=== PATIENT | female | born 1950 | race Caucasian/White ===

== ENCOUNTER 2018-11-14 05:45 | Inpatient (IN) | payer MEDICARE ==
[2018-11-14] MEDS ORDERED: KETOROLAC 30 MG/ML 1 ML VIAL IVP STA (06:37)
[2018-11-14] MEDS ORDERED: SODIUM CHLORIDE 0.9% 500 ML 500 ML IV STA (06:38)
--- NOTE | 2018-11-14 06:44 | ED ---
General Adult HPI - General Source: patient, RN notes reviewed Mode of arrival: ambulatory Limitations: no limitations <Francisco Jackman - Last Filed: 11/14/18 08:35> <Man Kaur - Last Filed: 11/14/18 08:50> - General Chief complaint: Extremity Injury, Lower Stated complaint: Leg pain,diabetic Time Seen by Provider: 11/14/18 06:08 - History of Present Illness Initial comments: 68-year-old female with a past medical history of diabetes, chronic neuropathy presents to the emergency department for left foot pain and swelling. Son states that patient was able to walk in grocery shop yesterday. However patient states that around noon yesterday she started to develop this pain and swelling in her left foot and ankle. States that it seems to be worsening today. States she has had similar type of occurrence before and it was infection. Denies any injury that she is aware of. Patient has no other complaints at this time including shortness of breath, chest pain, abdominal pain, nausea or vomiting, headache, or visual changes. (Francisco Jackman) - Related Data Home Medications Medication Instructions Recorded Confirmed Aspirin EC [Ecotrin Low Dose] 81 mg PO DAILY 11/14/18 11/14/18 Atorvastatin [Lipitor] 40 mg PO DAILY 11/14/18 11/14/18 Clopidogrel Bisulfate [Plavix] 75 mg PO DAILY 11/14/18 11/14/18 Insulin Glargine [Lantus] 14 unit SQ BID 11/14/18 11/14/18 Lisinopril [Zestril] 10 mg PO DAILY 11/14/18 11/14/18 Metoprolol Succinate (ER) [Toprol 50 mg PO DAILY 11/14/18 11/14/18 Xl] metFORMIN HCL [Glucophage] 500 mg PO BID 11/14/18 11/14/18 Allergies Allergy/AdvReac Type Severity Reaction Status Date / Time No Known Allergies Allergy Verified 11/14/18 08:05 Review of Systems ROS Other: All systems not noted in ROS Statement are negative. <Francisco Jackman - Last Filed: 11/14/18 08:35> ROS Other: All systems not noted in ROS Statement are negative. <Man Kaur - Last Filed: 11/14/18 08:50> ROS Statement: Those systems with pertinent positive or pertinent negative responses have been documented in the HPI. Past Medical History Past Medical History: Diabetes Mellitus History of Any Multi-Drug Resistant Organisms: None Reported Past Surgical History: Appendectomy, Section, Cholecystectomy, Hysterectomy Past Psychological History: No Psychological Hx Reported Smoking Status: Never smoker Past Alcohol Use History: None Reported Past Drug Use History: None Reported <Francisco Jackman - Last Filed: 11/14/18 08:35> General Exam Limitations: no limitations General appearance: alert, in no apparent distress Head exam: Present: atraumatic, normocephalic, normal inspection Eye exam: Present: normal appearance, PERRL, EOMI. Absent: scleral icterus, conjunctival injection, periorbital swelling ENT exam: Present: normal exam, mucous membranes moist Neck exam: Present: normal inspection, full ROM. Absent: tenderness, meningismus, lymphadenopathy Respiratory exam: Present: normal lung sounds bilaterally. Absent: respiratory distress, wheezes, rales, rhonchi, stridor Cardiovascular Exam: Present: regular rate, normal rhythm, normal heart sounds. Absent: systolic murmur, diastolic murmur, rubs, gallop, clicks Extremities exam: Present: tenderness (Tenderness noted along the lateral aspect of the left foot as well as the lateral malleolus.), normal capillary refill (Capillary refill less than 2 seconds, dp pulse 2+), joint swelling (Patient has significant swelling noted in the left lateral malleolus and foot. This is somewhat erythematous along the lateral aspect and does have increased warmth.), calf tenderness (mild calf tenderness noted). Absent: full ROM (Patient has pa in with dorsi and plantar flexion of the left ankle but does have neck and is an intact. Able to move all toes in the left foot.) Neurological exam: Present: alert. Absent: oriented X3 (A&Ox2 to person/place) Psychiatric exam: Present: normal affect, normal mood <Francisco Jackman - Last Filed: 11/14/18 08:35> Course <Man Kaur - Last Filed: 11/14/18 08:50> Vital Signs 11/14/18 11/14/18 05:58 08:43 Temperature 98.4 F Pulse Rate 107 H 106 H Respiratory 20 18 Rate Blood Pressure 153/81 132/67 O2 Sat by Pulse 97 98 Oximetry - Reevaluation(s) Reevaluation #1: 11/14/18 08:49 Patient reexamined and reevaluated by myself, Dr. Kaur. Patient resting comfortably in bed. I do agree with PA findings. This includes diagnostic interpretation and treatment plan. Patient does have left foot and ankle swelling with tenderness. Patient does have erythema dorsal foot. Son states patient has had similar episode 2 or 3 times previously associated with cellulitis. Son also states patient does have some agitation and mild confusion associated with this. Patient and family updated on results and plan. Case was discussed in detail with Dr. Medina, who will admit covering for Dr. Kai jackson. (Man Kaur) Medical Decision Making - Lab Data Result diagrams: 11/14/18 07:00 11/14/18 07:00 <Francisco Jackman - Last Filed: 11/14/18 08:35> - Lab Data Result diagrams: 11/14/18 07:00 11/14/18 07:00 <Man Kaur - Last Filed: 11/14/18 08:50> - Medical Decision Making 68-year-old female presents to the emergency department for a chief complaint of left lower extremity swelling and pain. This started yesterday. Patient states she was able to grocery shop and walk on it yesterday but now it is very painful which started around noon. States this is exactly consistent with a previous cellulitis. Patient states she is diabetic and does not notice when she has scratches or injuries to the left foot. Denies fevers or chills. On exam patient does have significant edema noted of the lateral aspect of the left foot and ankle. There is increased warmth to this area with minimal erythema. There is abrasion noted over the lateral malleolus. Neurovascular status is intact. Ultrasound was initially ordered for rule out DVT which showed no sonographic evidence. X-ray of the left foot and ankle shows marked soft tissue swelling throughout the lateral ankle without bony abnormality. CBC does show a white count of 14.5 with a left shift. CMP unremarkable however patient does have a glucose of 276, history of diabetes. Son is concerned because states when this infection since to get that she states K confused. States she is acting her normal self. Patient is A and O [address] and [address] Given infection and confusion patient will be admitted for IV antibiotics. Dr. Kaur discussed this case with Dr. Medina who accepts. (Francisco Jackman) - Lab Data Lab Results 11/14/18 11/14/18 11/14/18 Range/Units 07:00 07:00 07:00 WBC 14.5 H (3.8-10.6) k/uL RBC 4.41 (3.80-5.40) m/uL Hgb 13.7 (11.4-16.0) gm/dL Hct 42.0 (34.0-46.0) % MCV 95.1 (80.0-100.0) fL MCH 31.1 (25.0-35.0) pg MCHC 32.7 (31.0-37.0) g/dL RDW 12.8 (11.5-15.5) % Plt Count 206 (150-450) k/uL Neutrophils % 86 % Lymphocytes % 6 % Monocytes % 7 % Eosinophils % 1 % Basophils % 0 % Neutrophils # 12.4 H (1.3-7.7) k/uL Lymphocytes # 0.9 L (1.0-4.8) k/uL Monocytes # 1.0 (0-1.0) k/uL Eosinophils # 0.1 (0-0.7) k/uL Basophils # 0.0 (0-0.2) k/uL Sodium 138 (137-145) mmol/L Potassium 4.7 (3.5-5.1) mmol/L Chloride 102 (98-107) mmol/L Carbon Dioxide 25 (22-30) mmol/L Anion Gap 11 mmol/L BUN 15 (7-17) mg/dL Creatinine 1.03 (0.52-1.04) mg/dL Est GFR (CKD-EPI)AfAm 64 (>60 ml/min/1.73 sqM) Est GFR (CKD-EPI)NonAf 56 (>60 ml/min/1.73 sqM) Glucose 276 H (74-99) mg/dL Plasma Lactic Acid Alex 1.5 (0.7-2.0) mmol/L Calcium 9.0 (8.4-10.2) mg/dL Total Bilirubin 0.7 (0.2-1.3) mg/dL AST 17 (14-36) U/L ALT 24 (9-52) U/L Alkaline Phosphatase 70 (38-126) U/L Total Protein 7.0 (6.3-8.2) g/dL Albumin 4.1 (3.5-5.0) g/dL Disposition Is patient prescribed a controlled substance at d/c from ED?: No Time of Disposition: 08:36 <Francisco Jackman - Last Filed: 11/14/18 08:35> <Man Kaur - Last Filed: 11/14/18 08:50> Clinical Impression: Cellulitis of left lower extremity, Confusion, Leukocytosis Disposition: ADMITTED IP TO THIS HOSP Condition: Fair Referrals: Alan Wilkes MD [Primary Care Provider] - 1-2 days
[2018-11-14 07:26] LABS: Albumin 4.1 g/dL (3.5-5.0); Potassium 4.7 mmol/L (3.5-5.1); Total Bilirubin 0.7 mg/dL (0.2-1.3)
[2018-11-14 07:32] LABS: Basophils % (A) 0 %; Eosinophils # (A) 0.1 k/uL (0-0.7); Eosinophils % (A) 1 %; HGB 13.7 gm/dL (11.4-16.0); Lymphocytes # (A) 0.9 k/uL (1.0-4.8); Lymphocytes % (A) 6 %; MCH 31.1 pg (25.0-35.0); MCHC 32.7 g/dL (31.0-37.0); MCV 95.1 fL (80.0-100.0); Mean Platelet Volume 8.3; Monocytes % (A) 7 %; Neutrophils # (A) 12.4 k/uL (1.3-7.7); Neutrophils % (A) 86 %; Platelet Count 206 k/uL (150-450); RBC 4.41 m/uL (3.80-5.40); RDW 12.8 % (11.5-15.5); WBC 14.5 k/uL (3.8-10.6)
--- NOTE | 2018-11-14 07:36 | XR ---
EXAM: XR Left Foot Complete, 3 or More Views CLINICAL HISTORY: ITS.REASON XR Reason: Pain TECHNIQUE: Frontal, lateral and oblique views of the left foot. COMPARISON: No relevant prior studies available. FINDINGS: Bones/joints: Small spur in the posterior superior margin of the calcaneus. Tiny calcific density in the base of the cubocalcaneal joint. No acute fracture. No dislocation. Soft tissues: Soft tissue swelling about the lateral aspect of the visualized ankle and hindfoot. No radiopaque foreign body. IMPRESSION: 1. No acute bony abnormality. 2. Soft tissue swelling
--- NOTE | 2018-11-14 07:38 | XR ---
EXAM: XR Left Ankle Complete, 3 or More Views CLINICAL HISTORY: ITS.REASON XR Reason: Pain TECHNIQUE: Frontal, lateral and oblique views of the left ankle. COMPARISON: No relevant prior studies available. FINDINGS: Bones/joints: Small spur in the posterior superior margin of the calcaneus. This likely represents heel spur. Subtle lucencies in the lateral margin of the lateral malleolus, nonspecific. No acute fracture. No dislocation. Soft tissues: Marked soft tissue swelling about the lateral ankle. IMPRESSION: 1. No acute bony abnormality. 2. Marked soft tissue swelling about the lateral ankle. 3. As indicated, consider further evaluation with MR to exclude occult injury.
--- NOTE | 2018-11-14 07:46 | US ---
EXAMINATION TYPE: US venous doppler duplex LE LT DATE OF EXAM: 11/14/2018 7:32 AM COMPARISON: NONE CLINICAL HISTORY: Pain. Pt states left leg swelling x many years, recently gotten worse SIDE PERFORMED: Left TECHNIQUE: The lower extremity deep venous system is examined utilizing real time linear array sonog iram with graded compression, doppler sonography and color-flow sonography. VESSELS IMAGED: External Iliac Vein (EIV) Common Femoral Vein Deep Femoral Vein Greater Saphenous Vein * Femoral Vein Popliteal Vein Small Saphenous Vein * Proximal Calf Veins (* superficial vessels) Grayscale, color doppler, spectral doppler imaging performed of the deep veins of the left lower extr emity. There is normal flow, compressibility, vascular waveforms. Left Leg: Negative for DVT IMPRESSION: No sonographic evidence of deep venous thrombosis within the left lower extremity.
[2018-11-14] MEDS ORDERED: NALOXONE 0.4 MG/ML 1 ML VIAL IV PRN (08:41)
[2018-11-14] MEDS ORDERED: ONDANSETRON 4 MG/2 ML VIAL IVP PRN (08:41)
[2018-11-14] MEDS: SODIUM CHLORIDE 0.9% 1,000 ML IV SCH (09:28)
[2018-11-14] MEDS: metFORMIN 500 MG TAB PO SCH ×2 (09:36→20:03)
[2018-11-14] MEDS: LISINOPRIL 10 MG TAB PO SCH (09:36)
[2018-11-14] MEDS: METOPROLOL SUCCINATE (ER) 50 MG TAB.ER.24H PO SCH (09:36)
[2018-11-14] MEDS: CLOPIDOGREL 75 MG TAB PO SCH (09:36)
[2018-11-14] MEDS: ASPIRIN 81 MG PO SCH (09:36)
[2018-11-14 09:37] LABS: Glucose,Whole Blood 255 mg/dL (75-99)
[2018-11-14 10:08] LABS: Appearance,Urine Clear (Clear); Bilirubin,Urine Negative (Negative); Blood,Urine Negative (Negative); Color,Urine Yellow; Glucose,Urine (UA) 4+ (Negative); Ketones,Urine 1+ (Negative); Leukocyte Esterase,Urine Moderate (Negative); Mucus,Urine Rare /hpf; Nitrite,Urine Negative (Negative); PH, Urine 5.5 (5.0-8.0); Protein,Urine 1+ (Negative); RBC,Urine 4 /hpf (0-5); Specific Gravity,Urine 1.026 (1.001-1.035); Squamous Epithelial Cell,Urine 1 /hpf (0-4); Urobilinogen,Urine <2.0 mg/dL (<2.0); WBC,Urine 31 /hpf (0-5)
[2018-11-14] MEDS: HYDROcodone/APAP 5-325MG 1 EACH TAB PO PRN ×2 (11:55→20:02)
[2018-11-14] MEDS: ATORVASTATIN 40 MG TAB PO SCH (11:55)
[2018-11-14 12:00] LABS: Glucose,Whole Blood 264 mg/dL (75-99)
[2018-11-14] MEDS: INSULIN DETEMIR (LEVEMIR) 100 UNIT/ML SYR SQ SCH ×2 (12:19→20:03)
[2018-11-14] MEDS: INSULIN ASPART (NovoLOG) 100 UNIT/ML VIAL SQ SCH ×3 (12:19→21:36)
[2018-11-14 17:18] LABS: Glucose,Whole Blood 237 mg/dL (75-99)
[2018-11-14 21:27] LABS: Glucose,Whole Blood 475 mg/dL (75-99)
[2018-11-14 21:27] LABS: Glucose,Whole Blood 253 mg/dL (75-99)
[2018-11-14] MEDS ORDERED: NAPROXEN 250 MG TAB PO STA (23:06)
--- NOTE | 2018-11-14 23:13 | P.HPIM ---
History of Present Illness H&P Date: 11/14/18 Chief Complaint: Left ankle pain History of presenting complaint: This is a pleasant 68-year-old patient of Dr. Maddox. Chronic stable medical conditions include diabetes, hypertension, hyperlipidemia,. Patient complains of pain in his left ankle for quite some time. Seems to progressively gotten worse. This pain and swelling. Denies any fever and chills. Denies any in jury. Patient the best of historians. Admitted for the same. No fever no chills. Pain is localized to the left ankle and worse with activity. Finds it difficult to weight-bear. Better with rest. Review of systems: GEN.: Tired EYES: None HEENT: None NECK: None RESPIRATORY: None CARDIOVASCULAR: None GASTROINTESTINAL: None GENITOURINARY: None MUSCULOSKELETAL: As above] LYMPHATICS: None HEMATOLOGICAL: None PSYCHIATRY: Forgetful NEUROLOGICAL: Decreased sensation peripherally Past medical history: Diabetes, hypertension, hyperlipidemia Social history: Does not smoke or drink. . Family history: Patient doesn't remember Physical examination: VITAL SIGNS: 98.4, 107, 20, 153/81, 97% room air GENERAL: BMI 36.6, laying in bed tired. EYES: Pupils equal. Conjunctiva normal. HEENT: External appearance of nose and ears normal, oral cavity grossly normal. NECK: JVD not raised; masses not palpable. HEART: First and second heart sounds are normal; no edema. LUNGS: Respiratory rate normal; clear to auscultation. ABDOMEN: Soft, nontender, liver spleen not palpable, no masses palpable. PSYCH: Patient slow to answer questionsl. NEUROLOGICAL: Cranial nerves grossly intact; no facial asymmetry, power and sensation grossly intact. LYMPHATICS: No lymph nodes palpable in the axilla and neck MUSCULOSKELETAL: There is swelling and slight disfigurement of left ankle. Po sterior the pain swelling is of the foot. Some local tenderness. Able to push and deeply. Very minimal redness INVESTIGATIONS, reviewed in the clinical context: . White count 14.5 hemoglobin 13.7 potassium 4.7 1:15 creatinine 1.03 Left foot and ankle x-ray-shows soft tissue swelling around the foot and the ankle Assessment: -Acute on chronic pain swelling of the left foot with peripheral neuropathy. Patient could be developing early features of Charcot foot. Appears to be acute inflammation 2. Highly to highly doubt this to be infection. There is no breakdown of skin. -Diabetes mellitus type 2 -Obesity BMI 36.6 -Essential hypertension -Hyperlipidemia Plan: We'll start the patient on naproxen to 50 mg 3 times a day. We will use topical Voltaren gel with Kerlix and Francois wrap. We'll send off a uric acid though the joint is not behaving like out. We'll get orthopedic consultation with the same. Care was discussed with the patient.. Past Medical History Past Medical History: Diabetes Mellitus History of Any Multi-Drug Resistant Organisms: None Reported Past Surgical History: Appendectomy, Section, Cholecystectomy, Hysterectomy Past Psychological History: No Psychological Hx Reported Smoking Status: Never smoker Past Alcohol Use History: None Reported Past Drug Use History: None Reported Medications and Allergies Home Medications Medication Instructions Recorded Confirmed Type Aspirin EC [Ecotrin Low Dose] 81 mg PO DAILY 11/14/18 11/14/18 History Atorvastatin [Lipitor] 40 mg PO DAILY 11/14/18 11/14/18 History Clopidogrel Bisulfate [Plavix] 75 mg PO DAILY 11/14/18 11/14/18 History Insulin Glargine [Lantus] 14 unit SQ BID 11/14/18 11/14/18 History Lisinopril [Zestril] 10 mg PO DAILY 11/14/18 11/14/18 History Metoprolol Succinate (ER) [Toprol 50 mg PO DAILY 11/14/18 11/14/18 History Xl] metFORMIN HCL [Glucophage] 500 mg PO BID 11/14/18 11/14/18 History Allergies Allergy/AdvReac Type Severity Reaction Status Date / Time No Known Allergies Allergy Verified 11/14/18 08:05 Physical Exam Vitals: Vital Signs Temp Pulse Pulse Resp BP BP Pulse Ox 11/14/18 18:34 16 11/14/18 13:45 97.8 F 91 16 121/72 97 11/14/18 11:25 98.3 F 65 16 153/84 99 11/14/18 09:32 99.2 F 104 H 18 120/98 97 11/14/18 08:43 106 H 18 132/67 98 11/14/18 05:58 98.4 F 107 H 20 153/81 97 Intake and Output 11/14/18 11/14/18 11/14/18 06:59 14:59 22:59 Intake Total 1330 540 Balance 1330 540 Intake: Oral 1330 540 Other: Voiding Method Bedside Commode # Voids 2 2 Weight 90.718 kg Results CBC & Chem 7: 11/14/18 07:00 11/14/18 07:00 Labs: Abnormal Lab Results - Last 24 Hours (Table) 11/14/18 11/14/18 11/14/18 Range/Units 07:00 07:00 09:25 WBC 14.5 H (3.8-10.6) k/uL Neutrophils # 12.4 H (1.3-7.7) k/uL Lymphocytes # 0.9 L (1.0-4.8) k/uL Glucose 276 H (74-99) mg/dL POC Glucose (mg/dL) (75-99) mg/dL Urine Protein 1+ H (Negative) Urine Glucose (UA) 4+ H (Negative) Urine Ketones 1+ H (Negative) Ur Leukocyte Esterase Moderate H (Negative) Urine WBC 31 H (0-5) /hpf Urine Mucus Rare H (None) /hpf 11/14/18 11/14/18 11/14/18 Range/Units 09:35 11:45 17:17 WBC (3.8-10.6) k/uL Neutrophils # (1.3-7.7) k/uL Lymphocytes # (1.0-4.8) k/uL Glucose (74-99) mg/dL POC Glucose (mg/dL) 255 H 264 H 237 H (75-99) mg/dL Urine Protein (Negative) Urine Glucose (UA) (Negative) Urine Ketones (Negative) Ur Leukocyte Esterase (Negative) Urine WBC (0-5) /hpf Urine Mucus (None) /hpf 11/14/18 11/14/18 Range/Units 21:21 21:24 WBC (3.8-10.6) k/uL Neutrophils # (1.3-7.7) k/uL Lymphocytes # (1.0-4.8) k/uL Glucose (74-99) mg/dL POC Glucose (mg/dL) 475 H 253 H (75-99) mg/dL Urine Protein (Negative) Urine Glucose (UA) (Negative) Urine Ketones (Negative) Ur Leukocyte Esterase (Negative) Urine WBC (0-5) /hpf Urine Mucus (None) /hpf Thrombosis Risk Factor Assmnt - Choose All That Apply Each Risk Factor Represents 2 Points: Age 61-74 years Thrombosis Risk Factor Assessment Total Risk Factor Score: 2 Thrombosis Risk Factor Assessment Level: Low Risk
[2018-11-15] MEDS: ENOXAPARIN 40 MG/0.4 ML SYRINGE SQ SCH (01:05)
[2018-11-15] MEDS: DICLOFENAC SODIUM GEL 100 GM TUBE TOPICAL SCH ×5 (01:05→20:54)
[2018-11-15] MEDS: SODIUM CHLORIDE 0.9% 1,000 ML IV SCH ×2 (01:06→08:39)
[2018-11-15 04:55] LABS: Glucose,Whole Blood 178 mg/dL (75-99)
[2018-11-15 07:17] LABS: Glucose,Whole Blood 148 mg/dL (75-99)
[2018-11-15] MEDS: METOPROLOL SUCCINATE (ER) 50 MG TAB.ER.24H PO SCH (07:37)
[2018-11-15] MEDS: ASPIRIN 81 MG PO SCH (07:37)
[2018-11-15] MEDS: ATORVASTATIN 40 MG TAB PO SCH (07:37)
[2018-11-15] MEDS: metFORMIN 500 MG TAB PO SCH ×2 (07:37→20:53)
[2018-11-15] MEDS: LISINOPRIL 10 MG TAB PO SCH ×2 (07:37→07:50)
[2018-11-15] MEDS: INSULIN ASPART (NovoLOG) 100 UNIT/ML VIAL SQ SCH ×4 (07:38→20:53)
[2018-11-15] MEDS: NAPROXEN 250 MG TAB PO SCH ×3 (07:38→20:53)
[2018-11-15] MEDS: INSULIN DETEMIR (LEVEMIR) 100 UNIT/ML SYR SQ SCH ×2 (07:38→20:53)
[2018-11-15] MEDS: CLOPIDOGREL 75 MG TAB PO SCH (07:38)
[2018-11-15] MEDS ORDERED: LIDOCAINE 2% INJ 20 MG/ML (20 ML MDV) SQ ONE (10:25)
--- NOTE | 2018-11-15 11:05 | P.CNOR ---
History of Present Illness - [facility] Consult date: 11/15/18 Consult reason: joint pain (Left ankle) History of present illness: This is a 68-year-old female with history of diabetes and chronic left ankle problems. She states that approximately 8 years ago she had surgery with a public relations officer and developed a chronic wound to the lateral aspect of the left ankle. She states that she had an opening in her ankle for a couple of years. She does not recall whether there was infection or not. She states that her ankle occasionally flares up. Recently the ankle flared up much worse and have her have the past. She states that the pain was worse than she has ever had and developed redness which went up her leg and down to the foot. She was admitted to internal medicine we are consulted for orthopedic evaluation. Past Medical History Past Medical History: Diabetes Mellitus History of Any Multi-Drug Resistant Organisms: None Reported Past Surgical History: Appendectomy, Section, Cholecystectomy, Hysterectomy Past Psychological History: No Psychological Hx Reported Smoking Status: Never smoker Past Alcohol Use History: None Reported Past Drug Use History: None Reported Medications and Allergies Home Medications Medication Instructions Recorded Confirmed Type Aspirin EC [Ecotrin Low Dose] 81 mg PO DAILY 11/14/18 11/14/18 History Atorvastatin [Lipitor] 40 mg PO DAILY 11/14/18 11/14/18 History Clopidogrel Bisulfate [Plavix] 75 mg PO DAILY 11/14/18 11/14/18 History Insulin Glargine [Lantus] 14 unit SQ BID 11/14/18 11/14/18 History Lisinopril [Zestril] 10 mg PO DAILY 11/14/18 11/14/18 History Metoprolol Succinate (ER) [Toprol 50 mg PO DAILY 11/14/18 11/14/18 History Xl] metFORMIN HCL [Glucophage] 500 mg PO BID 11/14/18 11/14/18 History Allergies Allergy/AdvReac Type Severity Reaction Status Date / Time No Known Allergies Allergy Verified 11/14/18 08:05 Physical Examination This is a pleasant 68-year-old female in no acute distress. She is alert and oriented 3. Exam of the left lower extremity reveals erythema from the toes up to the mid lower leg. There is significant swelling to the lateral aspect of her ankle. She is able to move the foot and ankle with some pain. There is pain with palpation about the lateral ankle. Pedal pulse is +1/4. Neurovascular status to the lower extremity is intact. Results X-rays reveal no bony abnormality or fracture to the left ankle. - Labs Labs: Abnormal Lab Results - Last 24 Hours (Table) 11/14/18 11/14/18 11/14/18 Range/Units 11:45 17:17 21:21 POC Glucose (mg/dL) 264 H 237 H 475 H (75-99) mg/dL 11/14/18 11/15/18 11/15/18 Range/Units 21:24 04:41 07:01 POC Glucose (mg/dL) 253 H 178 H 148 H (75-99) mg/dL H & H 11/14/18 Range/Units 07:00 Hgb 13.7 (11.4-16.0) gm/dL Hct 42.0 (34.0-46.0) % Result Diagrams: 11/14/18 07:00 11/14/18 07:00 Assessment and Plan (1) Septic arthritis of left ankle Current Visit: Yes Status: Acute Code(s): M00.9 - PYOGENIC ARTHRITIS, UNSPECIFIED SNOMED Code(s): 5554255973076226 (2) Cellulitis of left lower extremity Current Visit: Yes Status: Acute Code(s): L03.116 - CELLULITIS OF LEFT LOWER LIMB SNOMED Code(s): 210238358 Plan: The clinical and x-ray findings are discussed the patient. Aspiration is performed to the left ankle today using sterile technique. Proximally 8 mL of purulent material is obtained from the ankle. The fluid is sent for culture and sensitivity and cell count crystal identification. I have reviewed the case with Dr. Arnold. The patient is scheduled for irrigation and debridement in the operating room today. The procedures discussed in detail with the patient. After discussion and consideration patient elects proceed with I&D left ankle.
[2018-11-15 12:13] LABS: Glucose,Whole Blood 171 mg/dL (75-99)
[2018-11-15] MEDS ORDERED: CLINDAMYCIN 600 MG in DEXTROSE 5% IN WATER 50 ML IVPB SCH ×2 (12:30)
[2018-11-15] MEDS ORDERED: PIPERACILLIN-TAZOBACTAM 3.375 GM in SODIUM CHLORIDE 0.9% 100 ML IVPB SCH (13:00)
[2018-11-15 13:07] LABS: Appearance,BF Cloudy; Nucleated Cells, Body Fluid 93000 /uL; RBC, Body Fluid 5400 /uL
[2018-11-15 13:11] LABS: Mononuclear WBC,Body Fluid 11 %; Polynuclear WBC,Body Fluid 89 %; Total Cells Counted,Body Fluid 100
[2018-11-15] MEDS ORDERED: PHENYLEPHRINE-0.9% NACL SYG 1 MG/10 ML SYRINGE ONE (14:01)
[2018-11-15] MEDS ORDERED: LIDOCAINE 1% INJ 10MG/ML (20 ML MDV) ONE (14:01)
[2018-11-15] MEDS ORDERED: fentaNYL (PF) 50 MCG/ML 2 ML AMP ONE (14:01)
[2018-11-15] MEDS ORDERED: MIDAZOLAM 2 MG/2 ML VIAL ONE (14:01)
[2018-11-15] MEDS ORDERED: ePHEDrine SULFATE/0.9% NACL/PF 50 MG/5 ML SYRINGE IV ONE (14:01)
[2018-11-15] MEDS ORDERED: DEXAMETHASONE SOD PHOS (MDV) 100 MG/10 ML VIAL ONE (14:01)
[2018-11-15] MEDS ORDERED: ONDANSETRON 4 MG/2 ML VIAL ONE (14:01)
[2018-11-15] MEDS ORDERED: PROPOFOL 10 MG/ML 20 ML VIAL IV ONE (14:01)
[2018-11-15] MEDS ORDERED: SUCCINYLCHOLINE CHLORIDE 100 MG/5 ML SYR IV ONE (14:01)
[2018-11-15] MEDS ORDERED: IV FLUID CONTINUATION 1,000 ML IV ONE (14:05)
--- NOTE | 2018-11-15 15:18 | P.OP ---
Date of Procedure: 11/15/18 Procedure(s) Performed: PREOPERATIVE DIAGNOSES: 1. Left ankle septic arthritis 2. 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 Left ankle subcutaneous abscess without involvement of the ankle joint 2. 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 Left ankle deep abscess incision and drainage 2. Closure of wound over a Gilmore drain ANESTHESIA: Gen. BOOK JACKET COVER MACHINE OPERATOR: None COMPLICATIONS: None ESTIMATED BLOOD LOSS: Less than 50 mL. DISPOSITION: To post-anesthesia care unit INDICATIONS: Mrs. Farah is a 68-year-old insulin-dependent diabetic with a history of infection involving the left ankle. She has a history of multiple left ankle procedures dating back approximately 10 years ago from an initial excision of "cyst" by a law firm administrator. Suspicion today is of septic arthritis involving the ankle joint. She presents to the operating room for incision and drainage. Consent has been obtained after discussion of the risks of incision and drainage of this abscess as being inclusive of, but not limited to: Bleeding, further infection, scarring, discomfort, blood vessel and/or nerve damage, compartment syndrome, failure to relieve symptoms, persistence or recurrence and/or worsening of symptoms or problems, need for further surgery, blood clot, pulmonary embolism, , anesthesia risks, and other risks. PROCEDURE: After appropriate consent was obtained, the patient was taken to the operating room placed in the supine position. Anesthesia was initiated, and after confirmation of adequate anesthesia, the patient was carefully positioned. Care was taken to make sure that all pressure points were adequately padded. Prepping and draping were completed in the usual aseptic fashion using ChloraPrep. Timeout was called, confirming patient identity, side, and procedure. On the floor, the patient had already been receiving Zosyn and Cleocin. Incision approximately 4 inches in size was created along the abscess, which was located on the lateral aspect of the ankle. Incision was carried down just through skin and into subcu tissues where was noted that there was gross pus. Brisk bleeding was noted from the subcutaneous tissues which was treated with Bovie cauterization, presumably from collateral circulation due to this patient's history of diabetes and microvascular disease. The gross pus was removed by extending the incision and gently spreading down to the abscess cavity. Frankly necrotic/infected tissue was removed both sharply with a knife and bluntly using a rongeur. The abscess cavity was probed with manual palpation until all areas of the abscess cavity were interrogated. The abscess seemed to track just posterior to the peroneal tendons. Cultures were taken. There did not appear to be any extension of the abscess cavity into the joint. To double check this, a 14-gauge Angiocath was placed percutaneously on the medial aspect of the joint adjacent to the anterior tibialis tendon and interrogation of the joint with 60 mL of saline was performed. There was no evidence of pus within the ankle joint itself and good pressure was noted with approximately a 10 mL volume of the ankle. The ankle was also pressurized to note any fluid extravasation into the lateral abscess wound and there was none seen. Lateral ankle soft tissue tension visibly and palpably improved after drainage of the abscess. Pulsatile lavage was used, delivering 3 L of saline within the abscess cavity. During this time, small amount of Hibiclens solution was also applied to the wound surface, allowed to soak into the tissues for 1 minute, and then rinsed off using the pulsatile lavage. Subsequently, hemostasis was obtained using electrocautery but there was no significant bleeding present. Wound waclosed superficially over a perforated Ave drain and sterile dressing was then applied. Patient tolerated the procedure well and taken to recovery room in stable condition. Sponge counts were correct.
[2018-11-15 15:19] LABS: Glucose,Whole Blood 172 mg/dL (75-99)
--- NOTE | 2018-11-15 16:15 | P.PN ---
Progress Note - Text Progress Note Date: 11/15/18 Chief Complaint: Left ankle pain Interval history: This is a pleasant 68-year-old patient of Dr. Maddox. Chronic stable medical conditions include diabetes, hypertension, hyperlipidemia,. Patient complains of pain in his left ankle for quite some time. Seems to progressively gotten worse. This pain and swelling. Denies any fever and chills. Denies any injury. Patient the best of historians. Admitted for the same. No fever no chills. Pain is localized to the left ankle and worse with activity. Finds it difficult to weight-bear. Better with rest. Today-orthopedics did drain the left ankle joint. Did obtain pus. IV antibiotics were started. Patient later today was to be taken down to the OR. Review of systems: Was done for constitutional, cardiovascular, GI, pulmonary. relevant finding as above Active Medications Hydrocodone Bitart/Acetaminophen ([place] 5-325) 1 each PO Q4HR PRN PRN Reason: Moderate Pain Last Admin: 11/14/18 20:02 Dose: 1 each Documented by: Aspirin (Aspirin) 81 mg PO DAILY [facility] Last Admin: 11/15/18 07:37 Dose: 81 mg Documented by: Atorvastatin Calcium (Lipitor) 40 mg PO DAILY [facility] Last Admin: 11/15/18 07:37 Dose: 40 mg Documented by: Clopidogrel Bisulfate (Plavix) 75 mg PO DAILY [facility] Last Admin: 11/15/18 07:38 Dose: 75 mg Documented by: Diclofenac Sodium (Voltaren Gel) 4 gm TOPICAL QID [facility] Last Admin: 11/15/18 13:15 Dose: Not Given Documented by: Enoxaparin Sodium (Lovenox) 40 mg SQ Q24H [facility] Last Admin: 11/15/18 01:05 Dose: 40 mg Documented by: Sodium Chloride (Saline 0.9%) 1,000 mls @ 75 mls/hr IV .[id number] [facility] Last Admin: 11/15/18 08:39 Dose: 75 mls/hr Documented by: Piperacillin Sod/Tazobactam (Sod 3.375 gm/ Sodium Chloride) 100 mls @ 25 mls/hr IVPB Q8H [facility] Last Admin: 11/15/18 13:30 Dose: 25 mls/hr Documented by: Clindamycin Phosphate 600 mg/ (Dextrose/Water) 54 mls @ 50 mls/hr IVPB Q6HR [facility] Last Admin: 11/15/18 13:12 Dose: 50 mls/hr Documented by: Insulin Aspart (Novolog) 0 unit SQ ACHS [facility]; Protocol Last Admin: 11/15/18 12:06 Dose: Not Given Documented by: Insulin Detemir (Levemir) 14 unit SQ BID@0700,2100 [facility] Last Admin: 11/15/18 07:38 Dose: 14 unit Documented by: Lisinopril (Zestril) 10 mg PO DAILY [facility] Last Admin: 11/15/18 07:50 Dose: 10 mg Documented by: Metformin HCl (Glucophage) 500 mg PO BID [facility] Last Admin: 11/15/18 07:37 Dose: 500 mg Documented by: Metoprolol Succinate (Toprol Xl) 50 mg PO DAILY [facility] Last Admin: 11/15/18 07:37 Dose: 50 mg Documented by: Naloxone HCl (Narcan) 0.2 mg IV Q2M PRN PRN Reason: Opioid Reversal Naproxen (Naprosyn) 250 mg PO TID [facility] Last Admin: 11/15/18 07:38 Dose: 250 mg Documented by: Ondansetron HCl (Zofran) 4 mg IVP Q8HR PRN PRN Reason: Nausea And Vomiting Physical examination: VITAL SIGNS: 98.1, 86, 20, 115/72, 92% room air GENERAL: Sitting up in the bed, not in distress EYES: Pupils equal. Conjunctiva normal. HEENT: External appearance of nose and ears normal, oral cavity grossly normal. NECK: JVD not raised; masses not palpable. HEART: First and second heart sounds are normal; no edema. LUNGS: Respiratory rate normal; clear to auscultation. ABDOMEN: Soft, nontender, liver spleen not palpable, no masses palpable. PSYCH: Patient slow to answer questionsl. NEUROLOGICAL: Cranial nerves grossly intact; no facial asymmetry, power and sensation grossly intact. LYMPHATICS: No lymph nodes palpable in the axilla and neck MUSCULOSKELETAL: There is swelling and slight disfigurement of left ankle. Currently in Francois wrap INVESTIGATIONS, reviewed in the clinical context: Joint fluid: RBC 5400, polynuclear WBC 89, nucleated cells 93,000 Admission testing: . White count 14.5 hemoglobin 13.7 potassium 4.7 1:15 creatinine 1.03 Left foot and ankle x-ray-shows soft tissue swelling around the foot and the ankle Assessment: -Left ankle septic arthritis. Arthrocentesis did reveal pus. Patient will be later taken down to the OR.. -Diabetes mellitus type 2 -Obesity BMI 36.6 -Essential hypertension -Hyperlipidemia Plan: Patient earlier started on Zosyn and clindamycin. Other medications to continue. Awaiting to go down to the OR.
[2018-11-15] MEDS ORDERED: VANCOMYCIN IV PER PHARMACY 1 EACH MISC MISCELLANE PRN (16:47)
[2018-11-15 17:23] LABS: Glucose,Whole Blood 209 mg/dL (75-99)
[2018-11-15] MEDS ORDERED: VANCOMYCIN 1,500 MG in SODIUM CHLORIDE 0.9% 250 ML IVPB ONE (18:00)
[2018-11-15 20:51] LABS: Glucose,Whole Blood 276 mg/dL (75-99)
[2018-11-15] MEDS: CEFEPIME 2 GM in SODIUM CHLORIDE 0.9% 100 ML IVPB SCH (20:53)
--- NOTE | 2018-11-15 23:00 | P.CONS ---
History of Present Illness - Reason for Consult Consult date: 11/15/18 Left ankle wound infection Requesting physician: Mark Arnold - Chief Complaint Left ankle pain and swelling x few days - History of Present Illness Patient is a 68 year female well known to my service in this patient who did have a off and on nonhealing wound to her right ankle area for the patient has been evaluated at the wound care center patient is on presenting to [facility] ER with a chief complaints of significant pain swelling redness to the left ankle area that apparently blew up within 2-3 days without any history of any trauma patient be complaining of throbbing pain to the area with intensity of almost 10 out of 10 and no radiation at that time went she presented to hospital with associated swelling and redness was extending up her leg the patient did have some chills but denies high-grade fever with these symptoms the patient was evaluated by the ER physician patient did have x-rays of the ankle area which shows soft tissue swelling but no bony changes she was noticed to have elevated white count of 14.5 thousand patient was taken to the OR and is status post drainage of an abscess which was thought to be subcutaneous and understandable to the ankle area wound culture has been obtained patient is currently being treated with clindamycin and Zosyn and infectious disease was consulted for further recommendation regarding antibiotic therapy Review of Systems CONSTITUTIONAL: Positive for weakness. Chills but no high-grade fever Fever EYES: No complaint. ENT:No complaint. RESPIRATORY: No complaint. CARDIOVASCULAR: No complaint. GENITOURINARY: No complaint. GASTROINTESTINAL: No complaint. MUSCULOSKELETAL: As per history of present illness INTEGUMENTARY: As per history of present illness PSYCHOLOGICAL: No complaint. ENDOCRINE: No complaint. NEUROLOGIC: No complaint. Past Medical History Past Medical History: Diabetes Mellitus History of Any Multi-Drug Resistant Organisms: None Reported Past Surgical History: Appendectomy, Section, Cholecystectomy, Hysterectomy Past Psychological History: No Psychological Hx Reported Smoking Status: Never smoker Past Alcohol Use History: None Reported Past Drug Use History: None Reported Medications and Allergies Home Medications Medication Instructions Recorded Confirmed Type Aspirin EC [Ecotrin Low Dose] 81 mg PO DAILY 11/14/18 11/14/18 History Atorvastatin [Lipitor] 40 mg PO DAILY 11/14/18 11/14/18 History Clopidogrel Bisulfate [Plavix] 75 mg PO DAILY 11/14/18 11/14/18 History Insulin Glargine [Lantus] 14 unit SQ BID 11/14/18 11/14/18 History Lisinopril [Zestril] 10 mg PO DAILY 11/14/18 11/14/18 History Metoprolol Succinate (ER) [Toprol 50 mg PO DAILY 11/14/18 11/14/18 History Xl] metFORMIN HCL [Glucophage] 500 mg PO BID 11/14/18 11/14/18 History Allergies Allergy/AdvReac Type Severity Reaction Status Date / Time No Known Allergies Allergy Verified 11/14/18 08:05 Physical Exam Vitals: Vital Signs Temp Pulse Pulse Resp BP Pulse Ox 11/15/18 16:05 98.3 F 94 16 100/56 92 L 11/15/18 15:25 94 18 95/55 95 11/15/18 15:10 98 16 101/57 99 11/15/18 14:57 98.2 F 101 H 18 90/51 99 11/15/18 07:49 88 143/77 11/15/18 04:45 98.1 F 86 20 115/72 92 L 11/14/18 22:25 97.4 F L 76 20 108/70 97 11/14/18 18:34 16 Intake and Output 11/15/18 11/15/18 11/15/18 06:59 14:59 22:59 Intake Total 100 300 100 Output Total 50 Balance 100 250 100 Intake: IV 300 100 Oral 100 Output: Estimated Blood Loss 50 Other: # Voids 1 3 # Bowel Movements 2 GENERAL DESCRIPTION: An elderly female lying in bed, no distress. No tachypnea or accessory muscle of respiration use. HEENT: Shows Pallor , no scleral icterus. Oral mucous membrane is dry. No pharyngeal erythema or thrush NECK: Trachea central, no thyromegaly. LUNGS: Unlabored breathing. Clear to auscultation anteriorly. No wheeze or crackle. HEART: S1, S2, regular rate and rhythm. No loud murmur ABDOMEN: Soft, no tenderness , guarding or rigidity, no organomegaly EXTREMITIES: Right ankle is currently dressed up postop with no drainage on the dressing SKIN: No rash, no masses palpable. NEUROLOGICAL: The patient is awake, alert, oriented x3, mood and affect normal. Results CBC & Chem 7: 11/14/18 07:00 11/14/18 07:00 Labs: Abnormal Lab Results - Last 24 Hours (Table) 11/14/18 11/14/18 11/14/18 Range/Units 17:17 21:21 21:24 POC Glucose (mg/dL) 237 H 475 H 253 H (75-99) mg/dL 11/15/18 11/15/18 11/15/18 Range/Units 04:41 07:01 12:05 POC Glucose (mg/dL) 178 H 148 H 171 H (75-99) mg/dL 11/15/18 Range/Units 15:16 POC Glucose (mg/dL) 172 H (75-99) mg/dL Assessment and Plan Assessment: 1-patient with history of chronic nonhealing wound to the left ankle area and this patient admitted with acute exacerbation with evidence of an abscess status post drainage, will need to call for both gram-positive and no significant gram-negative pathogen to be the likely source of this infection (1) Cellulitis of left lower extremity Current Visit: Yes Status: Acute Code(s): L03.116 - CELLULITIS OF LEFT LOWER LIMB SNOMED Code(s): 172828315 Plan: 1-discontinue the clindamycin and Zosyn 2--vancomycin pharmacy to dose target trough of 15 while watching her kidney function and Vanco trough closely 3- cefepime 2 g every 12 hours we will follow on clinical condition and culture to further adjust medication if needed Thank you for this consultation will follow this patient along with you
[2018-11-16] MEDS: ENOXAPARIN 40 MG/0.4 ML SYRINGE SQ SCH ×2 (00:23→22:56)
[2018-11-16] MEDS: HYDROcodone/APAP 5-325MG 1 EACH TAB PO PRN (01:17)
[2018-11-16] MEDS ORDERED: IPRATROPIUM-ALBUTEROL 3 ML NEB INHALATION PRN ×2 (01:25→05:31)
[2018-11-16] MEDS ORDERED: methylPREDNISolone SOD SUCCI 40 MG/ML 1 ML VIAL IV SCH (01:30)
--- NOTE | 2018-11-16 01:54 | XR ---
EXAM: XR Chest, 1 View CLINICAL HISTORY: ITS.REASON XR Reason: SOB TECHNIQUE: Frontal view of the chest. COMPARISON: No relevant prior studies available. IMPRESSION: Cardiomegaly. Trace left pleural effusion. Mild vascular congestion. No consolidation.
[2018-11-16 02:21] LABS: Glucose,Whole Blood 456 mg/dL (75-99)
[2018-11-16 02:21] LABS: Glucose,Whole Blood 467 mg/dL (75-99)
[2018-11-16] MEDS: PROPOFOL 1,000 MG in EMPTY BAG 1 BAG IV SCH ×4 (02:30→20:06)
[2018-11-16 03:05] LABS: ABG Base Excess -9.7 mmol/L; ABG HCO3 20 mmol/L (21-25); ABG Oxygen Saturation 99.3 % (94-97); ABG PCO2 60 mmHg (35-45); ABG PO2 272 mmHg (83-108); ABG TCO2 21 mmol/L (19-24); Allen Test Performed? Yes
[2018-11-16 03:10] LABS: Basophils % (A) 0 %; Eosinophils # (A) 0.1 k/uL (0-0.7); Eosinophils % (A) 0 %; HCT 38.8 % (34.0-46.0); HGB 12.3 gm/dL (11.4-16.0); Lymphocytes # (A) 1.4 k/uL (1.0-4.8); Lymphocytes % (A) 10 %; MCH 32.3 pg (25.0-35.0); MCHC 31.7 g/dL (31.0-37.0); Macrocytosis Slight; Mean Platelet Volume 8.2; Monocytes # (A) 0.3 k/uL (0-1.0); Monocytes % (A) 2 %; Neutrophils # (A) 12.4 k/uL (1.3-7.7); Neutrophils % (A) 87 %; Platelet Count 337 k/uL (150-450); RBC 3.81 m/uL (3.80-5.40); RDW 13.9 % (11.5-15.5); WBC 14.2 k/uL (3.8-10.6)
[2018-11-16 03:10] LABS: ABG PH 7.13 (7.35-7.45)
[2018-11-16 03:16] LABS: MCV 101.8 fL (80.0-100.0)
[2018-11-16 03:18] LABS: Calcium 8.5 mg/dL (8.4-10.2); Magnesium 2.3 mg/dL (1.6-2.3); Phosphorus 7.9 mg/dL (2.5-4.5)
--- NOTE | 2018-11-16 03:23 | XR ---
EXAM: XR Chest, 1 View CLINICAL HISTORY: ITS.REASON XR Reason: Tube placement TECHNIQUE: Frontal view of the chest. COMPARISON: 11/16/18 IMPRESSION: ET tube terminates 2.8 cm from the caleb. NG tube tip projects off the etpva-cd-alio but it does enter into the stomach.
[2018-11-16 03:27] LABS: D-Dimer 3.98 mg/L FEU (<0.60); INR 0.8 (<1.2); Partial Thromboplastin Time 25.4 sec (22.0-30.0); Prothrombin Time 9.2 sec (9.0-12.0)
[2018-11-16 03:32] LABS: Potassium 6.1 mmol/L (3.5-5.1)
[2018-11-16 03:39] LABS: Glucose,Whole Blood 385 mg/dL (75-99)
[2018-11-16] MEDS ORDERED: SODIUM CHLORIDE 0.9% 2,000 ML IV ONE (03:54)
[2018-11-16] MEDS ORDERED: INSULIN ASPART (NovoLOG) 100 UNIT/ML VIAL SQ SCH (04:00)
[2018-11-16 04:23] LABS: Glucose,Whole Blood >600 mg/dL (75-99)
[2018-11-16 04:37] LABS: Glucose,Whole Blood 398 mg/dL (75-99)
[2018-11-16] MEDS: SODIUM CHLORIDE 0.9% 1,000 ML IV SCH ×2 (04:39→14:52)
[2018-11-16 05:25] LABS: Amorphous Sediment,Urine Rare /hpf; Appearance,Urine Turbid (Clear); Bilirubin,Urine Negative (Negative); Blood,Urine Small (Negative); Color,Urine Yellow; Glucose,Urine (UA) 3+ (Negative); Granular Casts,Urine 720 /lpf (0); Ketones,Urine Negative (Negative); Leukocyte Esterase,Urine Negative (Negative); Mucus,Urine Occasional /hpf; Nitrite,Urine Negative (Negative); PH, Urine 5.5 (5.0-8.0); Protein,Urine 2+ (Negative); RBC,Urine 2 /hpf (0-5); Specific Gravity,Urine 1.021 (1.001-1.035); Squamous Epithelial Cell,Urine 12 /hpf (0-4); Urobilinogen,Urine <2.0 mg/dL (<2.0)
[2018-11-16] MEDS ORDERED: CISATRACURIUM 2 MG/ML 5 ML VIAL IV ONE (05:30)
[2018-11-16] MEDS ORDERED: VANCOMYCIN 1,500 MG in SODIUM CHLORIDE 0.9% 250 ML IVPB SCH (06:00)
[2018-11-16 06:11] LABS: ABG Base Excess -6.9 mmol/L; ABG HCO3 20 mmol/L (21-25); ABG Oxygen Saturation 98.5 % (94-97); ABG PCO2 46 mmHg (35-45); ABG PH 7.26 (7.35-7.45); ABG PO2 133 mmHg (83-108); ABG TCO2 22 mmol/L (19-24)
[2018-11-16] MEDS ORDERED: SODIUM BICARB 8.4% 50 ML SYR (1 MEQ/ML) IV STA ×2 (06:13→07:40)
[2018-11-16] MEDS ORDERED: SODIUM CHLORIDE 0.9% 1,000 ML IV ONE (06:43)
[2018-11-16] MEDS: IPRATROPIUM-ALBUTEROL 3 ML NEB INHALATION SCH ×5 (06:58→23:04)
--- NOTE | 2018-11-16 07:21 | CONS ---
CONSULTATION PULMONARY/CRITICAL CARE CONSULTATION: DATE OF CONSULTATION: 11/16/2018 This is a 68-year-old female who initially was admitted to the emergency room on November 14. She apparently presented there with left foot pain and swelling. She states that about a day or so prior to her arrival in the ER, the foot started getting worse. The pain and swelling had progressed. For that reason, she wanted to be evaluated. She was concerned about recurrent infection and apparently has had chronic left foot or left ankle wounds for some time. Anyway, when she was seen on the , she was admitted with a diagnosis of left ankle cellulitis and leukocytosis. At that time, she denied any chest pain or chest pressure. No shortness of breath. No nausea, vomiting, diarrhea. No other complaints. On the 15 of November, she apparently had an aspiration of the left ankle and subsequent to that a debridement. Apparently this was done by Dr. Arnold. Sometime this morning at about 1 a.m. she suddenly developed shortness of breath. An A team was called. Denise from the ICU went there and evaluated the patient and thought based on the patient's respiratory status and mental status, she should be intubated. Anesthesia was called and she was intubated and transferred to the ICU. Prior to that, Dr. Mdeina was called and apparently gave orders for a chest x-ray, a CT angiogram which she did not get because she was too unstable and corticosteroids. Anyway, she is currently now in the ICU on the ventilator. She is on the volume assist-control mode rate of 24, tidal volume 400, FiO2 of 70%, PEEP of 5. Arterial blood gases were done. On settings of AC 18, tidal volume 400 and 100% and PEEP of 5, her blood gases showed a pO2 of 272, a pCO2 of 60 and a pH 7.13. Repeats have not been done. She is currently on propofol at 20 mcg/kg per minute, 0.9 running as a bolus and she has received about 2.5 L of fluid here in the ICU. Initially, she was quite hypotensive, likely related to the decreased venous return which commonly occurs after positive-pressure ventilation. That has been overcome with fluids. No pressors were required as yet. MEDICATIONS: Her home medications include aspirin, Lipitor, Plavix, insulin, lisinopril, metoprolol, and metformin. ALLERGIES: Allergies are denied. PAST MEDICAL HISTORY: Her past medical history includes diabetes mellitus, hypertension, hyperlipidemia, previous , cholecystectomy, hysterectomy, and chronic left foot wound. SURGICAL HISTORY: Surgical history as mentioned above including the appendectomy, , cholecystectomy, and hysterectomy. SOCIAL HISTORY: Social history is apparently negative for tobacco use, alcohol use or illicit drug use. FAMILY HISTORY: There is no family history listed and there is no family around to talk to. The patient is currently intubated and mechanically ventilated and no history can be obtained from her at this time. REVIEW OF SYSTEMS: Accordingly, because she is currently intubated, the only obvious review of systems would be left foot and ankle swelling and pain, that is what brought her into the emergency room. She apparently according to the ER fiona denied any recent injury to the left foot or ankle and also denied any shortness of breath, chest pain, nausea, vomiting, diarrhea, or any genitourinary complaints. PHYSICAL EXAMINATION: VITAL SIGNS: Current vital signs are reviewed. Temperature 96.7, heart rate 100, respiratory rate 24, blood pressure 115/74, mean 87, saturations are 99%. GENERAL: She appears in no acute distress. She has currently got an orally placed endotracheal tube and NG tube. HEENT: Examination is grossly unremarkable. NECK: Supple. Full range of motion. No adenopathy or thyromegaly. Neck veins are flat. CARDIOVASCULAR: Examination reveals a regular rhythm rate. She is mildly tachycardic. Heart rate 100. Heart sounds are distant. LUNGS: Reveal bilateral rhonchi. Breath sounds are equal. No wheezes or crackles. ABDOMEN: Obese. Bowel sounds are heard. EXTREMITIES: Are intact. No edema. The left ankle and foot are wrapped with an Francois wrap. No cyanosis or clubbing. SKIN: Without rash. NEUROLOGIC: Examination could not be adequately assessed. X-RAY: Her most recent chest x-ray shows some mild fluid overload, small effusions bilaterally, some fluid in the minor fissure and possibly some infiltrate in the right lower lobe or right middle lobe which may reflect aspiration. NG tube and endotracheal tube are noted. LABS: Labs are reviewed. White count 14.2, hemoglobin 12.3, hematocrit 38.8, platelet count 337,000. PT 9.2, INR 0.8, PTT 25.4. D-dimer 3.98. Sodium 138, potassium 6.1, chloride 105, CO2 of 20, anion gap is 13. BUN and creatinine were 24 and 1.39. Urine is yellow and turbid, 2+ protein, 3+ glucose, small blood, 12 squamous cells, leukocyte esterase and nitrite were both negative. The aspiration of the ankle joint shows the fluid to be cloudy with 5400 RBCs, 93,000 nucleated cells, 89 of which are polymorphic nuclear white blood cells and 11 which are monocytes. Venous Doppler study done on 11/14 was negative for left leg DVT. A foot x-ray done on November 14 showed no acute bony abnormality or soft tissue swelling. MEDICATIONS: Medications are reviewed. Currently, she is on aspirin, Lipitor, Maxipime, chlorhexidine, Plavix, Voltaren gel, Lovenox, [place], insulin, updrafts, lisinopril, metformin, Solu-Medrol, metoprolol, Narcan, Naprosyn, Zofran propofol and saline IV. ASSESSMENT: 1. Acute hypoxemic respiratory failure, of unclear etiology. This may relate to sepsis and possible aspiration. 2. Recent aspiration/incision and drainage of chronic left ankle wound and cellulitis. 3. Acute respiratory and metabolic acidosis. 4. Hypotension, transient, likely related to intubation and mechanical ventilation. 5. History of diabetes mellitus. 6. History of hypertension. 7. History of hyperlipidemia. 8. Chronic left foot wound. 9. Rule out acute sepsis/septic shock. 10.Hyperkalemia. PLAN: Currently the patient is on appropriate antibiotics. Will run through the medications and discontinue the unnecessary ones. An art line and central line will be placed. Additional recommendations and suggestions are forthcoming. Repeat gases will be done once the art line is in. We will give the patient some dextrose and insulin for the hyperkalemia. She has gotten adequate fluid resuscitation. Hypotension responded nicely to fluids. We will make sure she is on updrafts q.4. Additional recommendations and suggestions are forthcoming. MMODL / IJN: [id number] /
--- NOTE | 2018-11-16 07:24 | PCN ---
PROCEDURE NOTE LABEL PASTER: Eren Lang MD. PROCEDURE NOTE: Left radial arterial line. PREOPERATIVE DIAGNOSIS: Frequent blood draws and blood gas monitoring. POSTOPERATIVE DIAGNOSIS: Frequent blood draws and blood gas monitoring. ARTERIAL LINE PLACEMENT: Indications: Hemodynamic monitoring. A time-out was completed verifying correct patient, procedure, site, positioning, and implant(s) or special equipment if applicable. Gunner's test was performed to ensure adequate perfusion. The patient's left wrist was prepped and draped in sterile fashion. 1% Lidocaine was used to anesthetize the area. An 18G Arrow arterial line was introduced into the radial artery. The catheter was threaded over the guide wire and the needle was removed with appropriate pulsatile blood return. Blood loss was minimal. There was good blood return and waveform. The catheter was then sutured in place to the skin and a sterile dressing applied by the nurse. Perfusion to the extremity distal to the point of catheter insertion was checked and found to be adequate. The patient tolerated the procedure well and there were no complications. PROCEDURE: A left internal jugular triple-lumen catheter. PREOPERATIVE DIAGNOSES: 1. Administration of fluids and pressors. 2. Hypotension. POSTOPERATIVE DIAGNOSES: 1. Administration of fluids and pressors. 2. Hypotension. Left internal jugular site was used. It was a posterior approach. There was no immediate complications. There was good blood return from all 3 ports. The catheter was sutured in place. Chest x-ray showed the tip was at the junction of superior vena cava, right atrium. A sterile dressing was applied by the nurse. There was no complications. MMODL / IJN: [id number] /
[2018-11-16] MEDS ORDERED: INSULIN REGULAR 100 UNIT/ML VIAL IV ONE (07:40)
[2018-11-16] MEDS ORDERED: DEXTROSE 50% SYRINGE 50 ML IVP STA (08:06)
[2018-11-16] MEDS ORDERED: INSULIN REGULAR BOLUS (FROM DRIP BAG) IV PRN (08:18)
[2018-11-16] MEDS ORDERED: DEXTROSE 10 % IN WATER 250 ML BAG IV STA (08:19)
[2018-11-16] MEDS: ASPIRIN 81 MG PO SCH (08:20)
[2018-11-16] MEDS: CEFEPIME 2 GM in SODIUM CHLORIDE 0.9% 100 ML IVPB SCH ×2 (08:20→20:07)
[2018-11-16] MEDS: CHLORHEXIDINE GLUCONATE 15 ML CUP MUCOUS MEM SCH ×2 (08:20→20:07)
[2018-11-16] MEDS: CLOPIDOGREL 75 MG TAB PO SCH (08:20)
--- NOTE | 2018-11-16 08:20 | P.PN ---
Progress Note - Text Progress Note Date: 11/16/18 On 11/16/2018 I'm seeing this patient for a follow-up. The patient was ordered to seen earlier this morning by my partner. In any rate, the patient is currently intubated on a mechanical ventilator. She is an assist-control mode at a rate of 26 with a tidal volume of 400 and FiO2 of 50% with a PEEP of 5. She was having significant amount of air leak and this was in the order of 150 mL and this was adjusted at the bedside. Chest x-ray was reviewed and shows lower lobe active pulmonary infiltrates. Not get was reviewed. The patient is currently afebrile. The left ankle wound was checked. There is a drain within the joint which is not putting much of output. She is on a combination of cefepime and vancomycin. The patient is on propofol at 50 mics. No pressors for now. She is going to complete the third liter of bolus. She is producing urine output. Blood work will be reviewed and the repeated. She is having elevated blood sugar. Insulin drip will be started all of the events that occurred yesterday were noted Impression 1 acute hypoxic respiratory failure probably related to metabolic acidosis an underlying sepsis. The patient became progressively lethargic and obtunded and she developed acidosis which was a combination of respiratory metabolic acidosis in addition to lower lobe by the pulmonary infiltrates. The patient subsequently went to acute hypoxic respiratory failure requiring intubation mechanical ventilation 2 left ankle septic arthritis, post incision and drainage, awaiting final cultures. 3 metabolic acidosis/lactic acidosis 4 hypotension, improved 5 diabetes mellitus with elevated blood sugar 6 hyperlipidemia 7 hypertension 8 acute kidney injury 9 acute hyperkalemia likely secondary to acute kidney injury and metabolic acidosis. Plan Complete 3 L of IV fluids. Continue the IV fluid maintenance at the rate of 150 mL an hour. Continue cefepime and vancomycin. Obtain echocardiogram. Put the patient on insulin drip. Repeat electrolytes. Repeat CBC. Repeat blood cultures. Follow-up lactic acid level. Keep the patient intubated on a mechanical ventilator. Continue sedation for now. Triple-lumen has been inserted. Artline catheter inserted. Condition is critical. We'll follow.
--- NOTE | 2018-11-16 08:31 | XR ---
EXAMINATION TYPE: XR chest 1V portable DATE OF EXAM: 11/16/2018 Comparison: 11/16/2018 Clinical History: 68 year-old female Tube placement Findings: ET tube tip is at the level of the medial clavicular heads, satisfactory. Left CVC tip in the upper r ight atrium. Heart borderline enlarged. Diffuse interstitial and perihilar densities as well as hazy bibasilar densities and patchy retrocardiac opacity. Aeration slightly worsened. NG tube courses belo w the diaphragm. Impression: Slight interval worsening interstitial and bibasilar opacities. Correlate for CHF with interstitial p ulmonary edema and small effusions with adjacent atelectasis and/or consolidation, left greater than right.
[2018-11-16 08:52] LABS: ABG Base Excess -5.1 mmol/L; ABG HCO3 21 mmol/L (21-25); ABG Oxygen Saturation 96.5 % (94-97); ABG PCO2 38 mmHg (35-45); ABG PH 7.35 (7.35-7.45); ABG PO2 82 mmHg (83-108); ABG TCO2 22 mmol/L (19-24); Allen Test Performed? Yes
[2018-11-16 09:07] LABS: Glucose,Whole Blood 261 mg/dL (75-99)
[2018-11-16] MEDS: INSULIN REGULAR 100 UNIT in SODIUM CHLORIDE 0.9% 100 ML IV SCH (09:09)
[2018-11-16 09:45] LABS: Glucose,Whole Blood 268 mg/dL (75-99)
[2018-11-16 10:24] LABS: Glucose,Whole Blood 236 mg/dL (75-99)
--- NOTE | 2018-11-16 10:44 | P.PN ---
Subjective Progress Note Date: 11/16/18 Principal diagnosis: Left lateral ankle subcutaneous infection. Respiratory failure This is a 68-year-old female who was taken to surgery on 11/15/2018 for possible septic arthritis of the left ankle. There was a soft tissue abscess found. There was no communication with the joint noted at the time of surgery. The area was debrided and Ave drain was placed. Postoperatively she developed some difficulty breathing and shortness of breath. She was transferred to the intensive care unit. She is currently being treated for sepsis. She is on a ventilator at this time. Objective - Vital Signs Vital signs: Vital Signs Temp 96.7 F L 11/16/18 04:00 Pulse 90 11/16/18 08:20 Resp 26 H 11/16/18 08:20 BP 138/71 11/16/18 08:20 Pulse Ox 96 11/16/18 08:20 Intake & Output 11/15/18 11/16/18 11/16/18 18:59 06:59 18:59 Intake Total 400 2156.571 1748.480 Output Total 50 270 230 Balance 350 7024.984 6593.480 Weight 90.718 kg Intake: IV 400 2125 1537 Dextrose 10% 250 Normal Saline Pressure 12 Bag Sodium Chloride 0.9% 1, 150 000 ml @ 75 mls/hr IV . [id number] [facility] Rx#:[id number] Sodium Chloride 0.9% 2, 2000 1000 000 ml @ 999 mls/hr IV . Q2H1M [facility] Rx#:[id number] Vancomycin 1,500 mg In 125 125 Sodium Chloride 0.9% 250 ml @ 125 mls/hr IVPB ONCE [facility] Rx#:[id number] Intake, IV Titration 31.571 151.480 Amount Cefepime 2 gm In Sodium 100 Chloride 0.9% 100 ml @ 200 mls/hr IVPB Q12HR [facility] Rx#:[id number] Insulin Regular 100 unit 8.661 In Sodium Chloride 0.9% 100 ml @ Per Protocol IV .Q0M [facility] Rx#:[id number] Propofol 1,000 mg In 31.571 42.819 Empty Bag 1 bag @ Titrate IV .Q0M [facility] Rx#: [id number] Other 60 Output: Urine 270 230 Estimated Blood Loss 50 Other: Voiding Method Bedside Commode Indwelling Catheter # Voids 3 2 # Bowel Movements 2 ABP, PAP, CO, CI - Last Documented Arterial Blood Pressure 120/54 - Exam This is a 68-year-old female in the intensive care unit on a ventilator. Her dressing had just been changed this morning. There is a clean dressing and Francois wrap from the knee down to the toes. Capillary refill is less than 3 seconds. - Labs CBC & Chem 7: 11/16/18 02:48 11/16/18 02:48 Labs: Abnormal Lab Results - Last 24 Hours (Table) 11/15/18 11/15/18 11/15/18 Range/Units 12:05 15:16 17:19 WBC (3.8-10.6) k/uL MCV (80.0-100.0) fL Neutrophils # (1.3-7.7) k/uL D-Dimer (<0.60) mg/L FEU ABG pH (7.35-7.45) ABG pCO2 (35-45) mmHg ABG pO2 (83-108) mmHg ABG HCO3 (21-25) mmol/L ABG O2 Saturation (94-97) % Potassium (3.5-5.1) mmol/L Carbon Dioxide (22-30) mmol/L BUN (7-17) mg/dL Creatinine (0.52-1.04) mg/dL Glucose (74-99) mg/dL POC Glucose (mg/dL) 171 H 172 H 209 H (75-99) mg/dL Plasma Lactic Acid Alex (0.7-2.0) mmol/L Phosphorus (2.5-4.5) mg/dL Urine Appearance (Clear) Urine Protein (Negative) Urine Glucose (UA) (Negative) Urine Blood (Negative) Ur Squamous Epith Cells (0-4) /hpf Amorphous Sediment (None) /hpf Urine Mucus (None) /hpf 11/15/18 11/16/18 11/16/18 Range/Units 20:48 02:06 02:08 WBC (3.8-10.6) k/uL MCV (80.0-100.0) fL Neutrophils # (1.3-7.7) k/uL D-Dimer (<0.60) mg/L FEU ABG pH (7.35-7.45) ABG pCO2 (35-45) mmHg ABG pO2 (83-108) mmHg ABG HCO3 (21-25) mmol/L ABG O2 Saturation (94-97) % Potassium (3.5-5.1) mmol/L Carbon Dioxide (22-30) mmol/L BUN (7-17) mg/dL Creatinine (0.52-1.04) mg/dL Glucose (74-99) mg/dL POC Glucose (mg/dL) 276 H 467 H 456 H (75-99) mg/dL Plasma Lactic Acid Alex (0.7-2.0) mmol/L Phosphorus (2.5-4.5) mg/dL Urine Appearance (Clear) Urine Protein (Negative) Urine Glucose (UA) (Negative) Urine Blood (Negative) Ur Squamous Epith Cells (0-4) /hpf Amorphous Sediment (None) /hpf Urine Mucus (None) /hpf 11/16/18 11/16/18 11/16/18 Range/Units 02:48 02:48 02:48 WBC 14.2 H (3.8-10.6) k/uL MCV 101.8 H D (80.0-100.0) fL Neutrophils # 12.4 H (1.3-7.7) k/uL D-Dimer 3.98 H (<0.60) mg/L FEU ABG pH (7.35-7.45) ABG pCO2 (35-45) mmHg ABG pO2 (83-108) mmHg ABG HCO3 (21-25) mmol/L ABG O2 Saturation (94-97) % Potassium 6.1 H* (3.5-5.1) mmol/L Carbon Dioxide 20 L (22-30) mmol/L BUN 24 H (7-17) mg/dL Creatinine 1.39 H (0.52-1.04) mg/dL Glucose 431 H (74-99) mg/dL POC Glucose (mg/dL) (75-99) mg/dL Plasma Lactic Acid Alex (0.7-2.0) mmol/L Phosphorus 7.9 H (2.5-4.5) mg/dL Urine Appearance (Clear) Urine Protein (Negative) Urine Glucose (UA) (Negative) Urine Blood (Negative) Ur Squamous Epith Cells (0-4) /hpf Amorphous Sediment (None) /hpf Urine Mucus (None) /hpf 11/16/18 11/16/18 11/16/18 Range/Units 02:48 03:03 03:37 WBC (3.8-10.6) k/uL MCV (80.0-100.0) fL Neutrophils # (1.3-7.7) k/uL D-Dimer (<0.60) mg/L FEU ABG pH 7.13 L* (7.35-7.45) ABG pCO2 60 H (35-45) mmHg ABG pO2 272 H (83-108) mmHg ABG HCO3 20 L (21-25) mmol/L ABG O2 Saturation 99.3 H (94-97) % Potassium (3.5-5.1) mmol/L Carbon Dioxide (22-30) mmol/L BUN (7-17) mg/dL Creatinine (0.52-1.04) mg/dL Glucose (74-99) mg/dL POC Glucose (mg/dL) 385 H (75-99) mg/dL Plasma Lactic Acid Alex 4.5 H* (0.7-2.0) mmol/L Phosphorus (2.5-4.5) mg/dL Urine Appearance (Clear) Urine Protein (Negative) Urine Glucose (UA) (Negative) Urine Blood (Negative) Ur Squamous Epith Cells (0-4) /hpf Amorphous Sediment (None) /hpf Urine Mucus (None) /hpf 11/16/18 11/16/18 11/16/18 Range/Units 04:22 04:35 05:00 WBC (3.8-10.6) k/uL MCV (80.0-100.0) fL Neutrophils # (1.3-7.7) k/uL D-Dimer (<0.60) mg/L FEU ABG pH (7.35-7.45) ABG pCO2 (35-45) mmHg ABG pO2 (83-108) mmHg ABG HCO3 (21-25) mmol/L ABG O2 Saturation (94-97) % Potassium (3.5-5.1) mmol/L Carbon Dioxide (22-30) mmol/L BUN (7-17) mg/dL Creatinine (0.52-1.04) mg/dL Glucose (74-99) mg/dL POC Glucose (mg/dL) >600 H 398 H (75-99) mg/dL Plasma Lactic Acid Alex (0.7-2.0) mmol/L Phosphorus (2.5-4.5) mg/dL Urine Appearance Turbid H (Clear) Urine Protein 2+ H (Negative) Urine Glucose (UA) 3+ H (Negative) Urine Blood Small H (Negative) Ur Squamous Epith Cells 12 H (0-4) /hpf Amorphous Sediment Rare H (None) /hpf Urine Mucus Occasional H (None) /hpf 11/16/18 11/16/18 11/16/18 Range/Units 06:07 08:50 09:05 WBC (3.8-10.6) k/uL MCV (80.0-100.0) fL Neutrophils # (1.3-7.7) k/uL D-Dimer (<0.60) mg/L FEU ABG pH 7.26 L (7.35-7.45) ABG pCO2 46 H (35-45) mmHg ABG pO2 133 H 82 L (83-108) mmHg ABG HCO3 20 L (21-25) mmol/L ABG O2 Saturation 98.5 H (94-97) % Potassium (3.5-5.1) mmol/L Carbon Dioxide (22-30) mmol/L BUN (7-17) mg/dL Creatinine (0.52-1.04) mg/dL Glucose (74-99) mg/dL POC Glucose (mg/dL) 261 H (75-99) mg/dL Plasma Lactic Acid Alex (0.7-2.0) mmol/L Phosphorus (2.5-4.5) mg/dL Urine Appearance (Clear) Urine Protein (Negative) Urine Glucose (UA) (Negative) Urine Blood (Negative) Ur Squamous Epith Cells (0-4) /hpf Amorphous Sediment (None) /hpf Urine Mucus (None) /hpf 11/16/18 11/16/18 Range/Units 09:43 10:22 WBC (3.8-10.6) k/uL MCV (80.0-100.0) fL Neutrophils # (1.3-7.7) k/uL D-Dimer (<0.60) mg/L FEU ABG pH (7.35-7.45) ABG pCO2 (35-45) mmHg ABG pO2 (83-108) mmHg ABG HCO3 (21-25) mmol/L ABG O2 Saturation (94-97) % Potassium (3.5-5.1) mmol/L Carbon Dioxide (22-30) mmol/L BUN (7-17) mg/dL Creatinine (0.52-1.04) mg/dL Glucose (74-99) mg/dL POC Glucose (mg/dL) 268 H 236 H (75-99) mg/dL Plasma Lactic Acid Alex (0.7-2.0) mmol/L Phosphorus (2.5-4.5) mg/dL Urine Appearance (Clear) Urine Protein (Negative) Urine Glucose (UA) (Negative) Urine Blood (Negative) Ur Squamous Epith Cells (0-4) /hpf Amorphous Sediment (None) /hpf Urine Mucus (None) /hpf Microbiology - Last 24 Hours (Table) 11/16/18 04:13 Sputum Culture - Preliminary Sputum 11/15/18 10:30 Gram Stain - Preliminary Aspirate Body Fluid Culture - Preliminary Presumptive Staph aureus 11/15/18 14:26 Gram Stain - Preliminary Ankle - Left Wound Culture - Preliminary Assessment and Plan (1) Septic arthritis of left ankle Current Visit: Yes Status: Acute Code(s): M00.9 - PYOGENIC ARTHRITIS, UNSPECIFIED SNOMED Code(s): 5075189736778789 (2) Cellulitis of left lower extremity Current Visit: Yes Status: Acute Code(s): L03.116 - CELLULITIS OF LEFT LOWER LIMB SNOMED Code(s): 479763856 Plan: The clinical findings are discussed with the nursing staff. We will leave the current dressing in place. Plan on pulling the [place] drain and possibly tomorrow. We will Continue to follow and await culture results.
[2018-11-16 11:10] LABS: Glucose,Whole Blood 201 mg/dL (75-99)
[2018-11-16 11:28] LABS: Hemoglobin A1C 7.7 % (4.0-6.0)
--- NOTE | 2018-11-16 11:31 | ECHOF ---
Referral Reason:septic shock MEASUREMENTS -------- HEIGHT: 160.0 cm WEIGHT: 90.7 kg BP: 117/57 RVIDd: 2.9 cm (< 3.3) IVSd: 1.5 cm (0.6 - 1.1) LVIDd: 4.1 cm (3.9 - 5.3) LVPWd: 1.6 cm (0.6 - 1.1) IVSs: 1.9 cm LVIDs: 3.3 cm LVPWs: 1.7 cm LA Diam: 3.2 cm (2.7 - 3.8) LAESV Index (A-L): 33.22 ml/m Ao Diam: 2.9 cm (2.0 - 3.7) AV Cusp: 2.0 cm (1.5 - 2.6) MV EXCURSION: 12.495 mm (> 18.000) MV EF SLOPE: 55 mm/s (70 - 150) EPSS: 0.6 cm MV E Home: 1.00 m/s MV DecT: 225 ms MV A Home: 1.23 m/s MV E/A Ratio: 0.81 RAP: 15.00 mmHg RVSP: 44.94 mmHg FINDINGS -------- The left ventricular size is normal. There is moderate concentric left ventricular hypertrophy. O verall left ventricular systolic function is normal with, an EF between 55 - 60 %. LA is midly dilated 29-33ml/m2. The right atrium is normal in size. Interatrial and interventricular septum intact. There is mild aortic valve sclerosis. The mitral valve leaflets are mildly thickened. Ltjgzupw-ap-jqdlbb mitral regurgitation is present. Mild tricuspid regurgitation present. There is mild pulmonary hypertension. The right ventricular systolic pressure, as measured by Doppler, is 44.94mmHg. Trace/mild (physiologic) pulmonic regurgitation. The aortic root size is normal. Normal inferior vena cava with less than 50% inspiratory collapse consistent with estimated right atr ial pressure of 15 mmHg. There is no pericardial effusion. CONCLUSIONS -------- 1. The left ventricular size is normal. 2. There is moderate concentric left ventricular hypertrophy. 3. Overall left ventricular systolic function is normal with, an EF between 55 - 60 %. 4. LA is midly dilated 29-33ml/m2. 5. The right atrium is normal in size. 6. Interatrial and interventricular septum intact. 7. There is mild aortic valve sclerosis. 8. The mitral valve leaflets are mildly thickened. 9. Yluvqdyo-gv-zqagbu mitral regurgitation is present. 10. Mild tricuspid regurgitation present. 11. There is mild pulmonary hypertension. 12. The right ventricular systolic pressure, as measured by Doppler, is 44.94mmHg. 13. Trace/mild (physiologic) pulmonic regurgitation. 14. The aortic root size is normal. 15. Normal inferior vena cava with less than 50% inspiratory collapse consistent with estimated right atrial pressure of 15 mmHg. 16. There is no pericardial effusion. INVESTMENT EXECUTIVE: Sharon Walters RDCS
[2018-11-16 12:02] LABS: Albumin 2.5 g/dL (3.5-5.0); Calcium 7.5 mg/dL (8.4-10.2); Total Bilirubin 0.3 mg/dL (0.2-1.3); Total Protein 4.9 g/dL (6.3-8.2)
[2018-11-16 12:12] LABS: Glucose,Whole Blood 180 mg/dL (75-99)
[2018-11-16 12:36] LABS: Basophils % (A) 0 %; Eosinophils % (A) 0 %; HCT 28.6 % (34.0-46.0); Lymphocytes # (A) 0.8 k/uL (1.0-4.8); Lymphocytes % (A) 8 %; MCH 32.4 pg (25.0-35.0); MCHC 33.1 g/dL (31.0-37.0); MCV 97.9 fL (80.0-100.0); Mean Platelet Volume 8.6; Monocytes # (A) 0.3 k/uL (0-1.0); Monocytes % (A) 3 %; Neutrophils # (A) 8.3 k/uL (1.3-7.7); Neutrophils % (A) 88 %; Platelet Count 230 k/uL (150-450); RBC 2.93 m/uL (3.80-5.40); RDW 13.7 % (11.5-15.5); WBC 9.5 k/uL (3.8-10.6)
[2018-11-16 12:42] LABS: HGB 9.5 gm/dL (11.4-16.0)
[2018-11-16 13:05] LABS: Glucose,Whole Blood 165 mg/dL (75-99)
[2018-11-16 14:07] LABS: Glucose,Whole Blood 162 mg/dL (75-99)
[2018-11-16 14:50] LABS: Glucose,Whole Blood 147 mg/dL (75-99)
[2018-11-16] MEDS: NOREPINEPHRINE 4 MG in SODIUM CHLORIDE 0.9% 250 ML IV SCH ×2 (14:52→23:36)
[2018-11-16 16:29] LABS: Glucose,Whole Blood 145 mg/dL (75-99)
[2018-11-16 17:17] LABS: Glucose,Whole Blood 187 mg/dL (75-99)
[2018-11-16 18:17] LABS: Glucose,Whole Blood 122 mg/dL (75-99)
--- NOTE | 2018-11-16 18:51 | PN ---
PROGRESS NOTE DATE OF SERVICE: 11/16/2018 REASON FOR FOLLOWUP: Left ankle abscess and cellulitis. INTERVAL HISTORY: The patient did go into respiratory distress last night. She ended up getting intubated. Currently on the vent. FiO2 is down to 50%. She is hemodynamically stable, not requiring any pressor support. Sedated on the vent; unable to provide any history. PHYSICAL EXAMINATION: Blood pressure 125/74 with a pulse of 71, temperature 97.5. She is 97% on 50% FiO2. General description is an elderly female lying in bed in no distress. RESPIRATORY SYSTEM: Unlabored breathing with decreased breath sounds at the base. No wheeze. HEART: S1, S2. Regular rate and rhythm. ABDOMEN: Soft. No tenderness. Left ankle is currently dressed up. No obvious drainage on the dressing. LABS: Hemoglobin 9.5, white count normalized to 9.5. BUN of 21, creatinine 1.10. Wound culture at present Staphylococcus aureus. DIAGNOSTIC IMPRESSION AND PLAN: Patient with left ankle abscess and cellulitis, status post drainage, with no evidence of any extension down to the ankle joint. Clinical course complicated by development of respiratory failure; currently on the vent. The patient at this time will continue with vancomycin and cefepime, adjusting antibiotics further on the basis of the culture report. Continue with supportive care. MMODL / IJN: [id number] /
[2018-11-16 19:13] LABS: Glucose,Whole Blood 138 mg/dL (75-99)
[2018-11-16 20:06] LABS: Glucose,Whole Blood 146 mg/dL (75-99)
--- NOTE | 2018-11-16 20:43 | XR ---
EXAMINATION: XR chest 1V portable DATE AND TIME: 11/16/2018 7:59 PM CLINICAL INDICATION: PHH; significant recurring air leak TECHNIQUE: AP portable semiupright chest radiograph COMPARISON: AP portable semiupright chest radiograph 11/16/2018 at 6:12 AM FINDINGS: Radiograph is relatively underpenetrated. Support Lines And Catheters: ET tube tip superimposed over the mid trachea. NG tube present, coursing over the expected course of the thoracic esophagus and gastric fundus, but its tip cannot be visuali zed as it courses caudal to the film. Left subclavian central line tip superimposed over the SVC. EKG leads. The left hemidiaphragm remains silhouetted consistent with airlessness throughout the left lower lobe and with a meniscus laterally consistent with an element of left pleural effusion. Homogeneous added opacity over the right lower lung zone is suspicious for right pleural effusion. Elevated hemidiaphragms bilaterally consistent with relatively low lung inflation at the moment of x- ray exposure, not allowing visualization of the lower lobes, which appear to be airless bilaterally. The upper lung zones are clear bilaterally as is most of the right midlung zone. Cardiac silhouette mild moderately enlarged, stable. No definite acute skeletal or soft tissue findings are evident. There is no pneumothorax evident, however the radiograph is only semiupright which limits sensitivity for abnormal gas collections. IMPRESSION: Overall similar lung inflation pattern, allowing for differences in technique. The pulmon beth edema pattern appears to be mildly less pronounced than the prior study.
[2018-11-16 20:54] LABS: Glucose,Whole Blood 150 mg/dL (75-99)
[2018-11-16 22:02] LABS: Glucose,Whole Blood 161 mg/dL (75-99)
--- NOTE | 2018-11-16 22:48 | P.PN ---
Progress Note - Text Progress Note Date: 11/16/18 Chief Complaint: Left ankle pain Interval history: This is a pleasant 68-year-old patient of Dr. Maddox. Chronic stable medical conditions include diabetes, hypertension, hyperlipidemia,. Patient complains of pain in his left ankle for quite some time. Seems to progressively gotten worse. This pain and swelling. Denies any fever and chills. Denies any injury. Patient the best of historians. Admitted for the same. No fever no chills. Pain is localized to the left ankle and worse with activity. Finds it difficult to weight-bear. Better with rest. On November 15, arthrocentesis was done of the left ankle. Pus was obtained. Later patient was taken down to the OR for further drainage. Today-early hours of this morning patient became short of breath. I did order a chest x-ray and a CT angiogram rule out PE. In the meantime and A team was called out. Patient went into respiratory distress. Patient spoke to the ICU. Dr. Lyle had been consulted. Patient is intubated. It was felt this could be from underlying metabolic acidosis and sepsis. Patient on insulin drip. IV propofol. IV levo fed. Telemetry shows sinus rhythm. FiO2 50 and PEEP of 5. Patient remains intubated. Review of systems: Cannot be done as patient is intubated Active Medications Albuterol/Ipratropium (Duoneb 0.5 Mg-3 Mg/3 Ml Soln) 3 ml INHALATION RT-Q4H [facility] Last Admin: 11/16/18 19:32 Dose: 3 ml Documented by: Albuterol/Ipratropium (Duoneb 0.5 Mg-3 Mg/3 Ml Soln) 3 ml INHALATION RT-Q2H PRN PRN Reason: Shortness Of Breath Or Wheezing Aspirin (Aspirin) 81 mg PO DAILY [facility] Last Admin: 11/16/18 08:20 Dose: 81 mg Documented by: Chlorhexidine Gluconate (Peridex) 15 ml MUCOUS MEM BID [facility] Last Admin: 11/16/18 20:07 Dose: 15 ml Documented by: Clopidogrel Bisulfate (Plavix) 75 mg PO DAILY [facility] Last Admin: 11/16/18 08:20 Dose: 75 mg Documented by: Enoxaparin Sodium (Lovenox) 40 mg SQ Q24H [facility] Last Admin: 11/16/18 00:23 Dose: 40 mg Documented by: Sodium Chloride (Saline 0.9%) 1,000 mls @ 75 mls/hr IV .[id number] [facility] Last Admin: 11/16/18 14:52 Dose: 75 mls/hr Documented by: Cefepime HCl 2 gm/ Sodium (Chloride) 100 mls @ 200 mls/hr IVPB Q12HR [facility] Last Admin: 11/16/18 20:07 Dose: 200 mls/hr Documented by: Propofol 1,000 mg/ IV Solution 100 mls @ 0 mls/hr IV .Q0M [facility]; Protocol Last Admin: 11/16/18 20:06 Dose: 40 mcg/kg/min, 21.772 mls/hr Documented by: Insulin Human Regular 100 unit (/ Sodium Chloride) 101 mls @ 0 mls/hr IV .Q0M [facility]; Protocol Last Titration: 11/16/18 22:02 Dose: 0.5 units/hr, 0.505 mls/hr Documented by: Norepinephrine Bitartrate 4 mg (/ Sodium Chloride) 254 mls @ 17.282 mls/hr IV .[id number] [facility]ANNA; Protocol Last Admin: 11/16/18 14:52 Dose: Not Given Documented by: Vancomycin HCl 1,500 mg/ (Sodium Chloride) 250 mls @ 125 mls/hr IVPB Q24H [facility] Naloxone HCl (Narcan) 0.2 mg IV Q2M PRN PRN Reason: Opioid Reversal Ondansetron HCl (Zofran) 4 mg IVP Q8HR PRN PRN Reason: Nausea And Vomiting Physical examination: VITAL SIGNS: 97.6, 74, 26, 108/55, 98% GENERAL: Laying in bed, intubated EYES: Pupils equal. Conjunctiva normal. HEENT: External appearance of nose and ears normal, endotracheal tube in place. NECK: JVD unable to assess; masses not palpable. HEART: First and second heart sounds are normal; no edema. LUNGS: Respiratory rate increased, diminished breath sounds. ABDOMEN: Soft, nontender, liver spleen not palpable, no masses palpable. PSYCH: Sedated, unable to assess NEUROLOGICAL: Cranial nerves grossly intact; no facial asymmetry, plantars a Silvia. MUSCULOSKELETAL: There is swelling and slight disfigurement of left ankle. Currently in Francois wrap INVESTIGATIONS, reviewed in the clinical context: White count 9.5 hemoglobin 9.5 potassium 4 bicarb 20 bun 21 creatinine 1.1 albumin 2.5 Wound culture fluids growing staph aureus Previous testing: . White count 14.5 hemoglobin 13.7 potassium 4.7 1:15 creatinine 1.03 Left foot and ankle x-ray-shows soft tissue swelling around the foot and the ankle Joint fluid: RBC 5400, polynuclear WBC 89, nucleated cells 93,000 Assessment: -Left ankle septic arthritis. Arthrocentesis did reveal pus. Status post I&D with a [place] drain line- -Acute hypoxic respiratory failure with ventilator support secondary to sepsis -Sepsis from septic arthritis -Metabolic and lactic acidosis. -Diabetes mellitus type 2 -Obesity BMI 36.6 -Essential hypertension -Hyperlipidemia Plan: Patient currently on vancomycin and IV cefepime. Also patient was on levo fed and propofol. Remains on the ventilator. Prognosis guarded. We'll follow
[2018-11-16 22:59] LABS: Glucose,Whole Blood 150 mg/dL (75-99)
[2018-11-17 00:12] LABS: Glucose,Whole Blood 152 mg/dL (75-99)
[2018-11-17] MEDS: PROPOFOL 1,000 MG in EMPTY BAG 1 BAG IV SCH ×7 (00:51→22:10)
[2018-11-17 01:03] LABS: Glucose,Whole Blood 159 mg/dL (75-99)
[2018-11-17 03:00] LABS: Glucose,Whole Blood 144 mg/dL (75-99)
[2018-11-17] MEDS: IPRATROPIUM-ALBUTEROL 3 ML NEB INHALATION SCH ×6 (03:05→23:06)
[2018-11-17] MEDS: SODIUM CHLORIDE 0.9% 1,000 ML IV SCH ×2 (03:39→18:56)
[2018-11-17 05:07] LABS: Glucose,Whole Blood 151 mg/dL (75-99)
[2018-11-17 05:25] LABS: ABG Base Excess -4.7 mmol/L; ABG HCO3 20 mmol/L (21-25); ABG Oxygen Saturation 98.5 % (94-97); ABG PCO2 33 mmHg (35-45); ABG PH 7.39 (7.35-7.45); ABG PO2 112 mmHg (83-108); ABG TCO2 21 mmol/L (19-24); Allen Test Performed? Yes
[2018-11-17] MEDS ORDERED: VANCOMYCIN 1,500 MG in SODIUM CHLORIDE 0.9% 250 ML IVPB SCH (06:00)
[2018-11-17 06:33] LABS: Calcium 7.9 mg/dL (8.4-10.2); Phosphorus 3.4 mg/dL (2.5-4.5); Potassium 4.4 mmol/L (3.5-5.1)
[2018-11-17 06:57] LABS: Glucose,Whole Blood 171 mg/dL (75-99)
[2018-11-17 07:04] LABS: Basophils % (A) 0 %; Eosinophils % (A) 1 %; HCT 29.5 % (34.0-46.0); HGB 9.5 gm/dL (11.4-16.0); Lymphocytes # (A) 1.5 k/uL (1.0-4.8); Lymphocytes % (A) 15 %; MCH 31.5 pg (25.0-35.0); MCHC 32.2 g/dL (31.0-37.0); MCV 97.9 fL (80.0-100.0); Mean Platelet Volume 8.4; Monocytes # (A) 0.5 k/uL (0-1.0); Monocytes % (A) 5 %; Neutrophils # (A) 7.6 k/uL (1.3-7.7); Neutrophils % (A) 79 %; Platelet Count 254 k/uL (150-450); RBC 3.02 m/uL (3.80-5.40); RDW 13.7 % (11.5-15.5); WBC 9.7 k/uL (3.8-10.6)
[2018-11-17] MEDS ORDERED: FUROSEMIDE 10 MG/ML 4 ML VIAL IV STA (07:36)
--- NOTE | 2018-11-17 08:21 | P.PN ---
Subjective Progress Note Date: 11/17/18 Principal diagnosis: Left lateral ankle subcutaneous infection. Respiratory failure This is a 68-year-old female who was taken to surgery on 11/15/2018 for possible septic arthritis of the left ankle. There was a soft tissue abscess found. There was no communication with the joint noted at the time of surgery. The area was debrided and Ave drain was placed. Postoperatively she developed some difficulty breathing and shortness of breath. She was transferred to the intensive care unit. She is currently being treated for sepsis. She is on a ventilator at this time. According to nursing staff there is no plan for extubation today. Objective - Vital Signs Vital signs: Vital Signs Temp 98.7 F 11/17/18 04:00 Pulse 94 11/17/18 08:10 Resp 26 H 11/17/18 07:00 BP 139/78 11/17/18 07:00 Pulse Ox 98 11/17/18 07:00 Intake & Output 11/16/18 11/17/18 11/17/18 18:59 06:59 18:59 Intake Total 2623.736 1524.452 206 Output Total 1375 610 95 Balance 1248.736 914.452 111 Weight 90.718 kg 106.5 kg Intake: IV 2266 1197 206 Cefepime 2 gm In Sodium 100 Chloride 0.9% 100 ml @ 200 mls/hr IVPB Q12HR [facility] Rx#:[id number] Dextrose 10% 250 Normal Saline Pressure 66 72 6 Bag Sodium Chloride 0.9% 1, 825 900 75 000 ml @ 75 mls/hr IV . [id number] [facility] Rx#:[id number] Sodium Chloride 0.9% 2, 1000 000 ml @ 999 mls/hr IV . Q2H1M [facility] Rx#:[id number] Vancomycin 1,500 mg In 125 Sodium Chloride 0.9% 250 ml @ 125 mls/hr IVPB ONCE [facility] Rx#:[id number] Vancomycin 1,500 mg In 125 125 Sodium Chloride 0.9% 250 ml @ 125 mls/hr IVPB Q16H [facility] Rx#:[id number] Intake, IV Titration 297.736 327.452 0 Amount Cefepime 2 gm In Sodium 100 Chloride 0.9% 100 ml @ 200 mls/hr IVPB Q12HR [facility] Rx#:[id number] Insulin Regular 100 unit 29.307 0.48 0 In Sodium Chloride 0.9% 100 ml @ Per Protocol IV .Q0M [facility] Rx#:[id number] Propofol 1,000 mg In 168.429 326.972 Empty Bag 1 bag @ Titrate IV .Q0M [facility] Rx#: [id number] Other 60 Output: Gastric Drainage 150 Urine 1225 610 95 Other: Voiding Method Indwelling Catheter Indwelling Catheter ABP, PAP, CO, CI - Last Documented Arterial Blood Pressure 120/101 - Exam This is a 68-year-old female in the intensive care unit on a ventilator. Exam of the lateral incision reveals moderate drainage on the dressing. There is no active drainage at this time. Erythema is improved. Ave drain in place. Pedal pulse is +1/4. Capillary refill is less than 3 seconds. - Labs CBC & Chem 7: 11/17/18 05:30 11/17/18 05:30 Labs: Abnormal Lab Results - Last 24 Hours (Table) 11/16/18 11/16/18 11/16/18 Range/Units 02:48 08:50 09:05 RBC (3.80-5.40) m/uL Hgb (11.4-16.0) gm/dL Hct (34.0-46.0) % Neutrophils # (1.3-7.7) k/uL Lymphocytes # (1.0-4.8) k/uL ABG pCO2 (35-45) mmHg ABG pO2 82 L (83-108) mmHg ABG HCO3 (21-25) mmol/L ABG O2 Saturation (94-97) % Chloride (98-107) mmol/L Carbon Dioxide (22-30) mmol/L BUN (7-17) mg/dL Creatinine (0.52-1.04) mg/dL Glucose (74-99) mg/dL POC Glucose (mg/dL) 261 H (75-99) mg/dL Hemoglobin A1c 7.7 H (4.0-6.0) % Calcium (8.4-10.2) mg/dL AST (14-36) U/L Total Protein (6.3-8.2) g/dL Albumin (3.5-5.0) g/dL 11/16/18 11/16/18 11/16/18 Range/Units 09:43 10:20 10:22 RBC (3.80-5.40) m/uL Hgb (11.4-16.0) gm/dL Hct (34.0-46.0) % Neutrophils # (1.3-7.7) k/uL Lymphocytes # (1.0-4.8) k/uL ABG pCO2 (35-45) mmHg ABG pO2 (83-108) mmHg ABG HCO3 (21-25) mmol/L ABG O2 Saturation (94-97) % Chloride 112 H (98-107) mmol/L Carbon Dioxide 20 L (22-30) mmol/L BUN 21 H (7-17) mg/dL Creatinine 1.10 H (0.52-1.04) mg/dL Glucose 229 H (74-99) mg/dL POC Glucose (mg/dL) 268 H 236 H (75-99) mg/dL Hemoglobin A1c (4.0-6.0) % Calcium 7.5 L (8.4-10.2) mg/dL AST 120 H (14-36) U/L Total Protein 4.9 L (6.3-8.2) g/dL Albumin 2.5 L (3.5-5.0) g/dL 11/16/18 11/16/18 11/16/18 Range/Units 10:25 11:09 12:11 RBC 2.93 L (3.80-5.40) m/uL Hgb 9.5 L D (11.4-16.0) gm/dL Hct 28.6 L (34.0-46.0) % Neutrophils # 8.3 H (1.3-7.7) k/uL Lymphocytes # 0.8 L (1.0-4.8) k/uL ABG pCO2 (35-45) mmHg ABG pO2 (83-108) mmHg ABG HCO3 (21-25) mmol/L ABG O2 Saturation (94-97) % Chloride (98-107) mmol/L Carbon Dioxide (22-30) mmol/L BUN (7-17) mg/dL Creatinine (0.52-1.04) mg/dL Glucose (74-99) mg/dL POC Glucose (mg/dL) 201 H 180 H (75-99) mg/dL Hemoglobin A1c (4.0-6.0) % Calcium (8.4-10.2) mg/dL AST (14-36) U/L Total Protein (6.3-8.2) g/dL Albumin (3.5-5.0) g/dL 11/16/18 11/16/18 11/16/18 Range/Units 13:04 14:04 14:48 RBC (3.80-5.40) m/uL Hgb (11.4-16.0) gm/dL Hct (34.0-46.0) % Neutrophils # (1.3-7.7) k/uL Lymphocytes # (1.0-4.8) k/uL ABG pCO2 (35-45) mmHg ABG pO2 (83-108) mmHg ABG HCO3 (21-25) mmol/L ABG O2 Saturation (94-97) % Chloride (98-107) mmol/L Carbon Dioxide (22-30) mmol/L BUN (7-17) mg/dL Creatinine (0.52-1.04) mg/dL Glucose (74-99) mg/dL POC Glucose (mg/dL) 165 H 162 H 147 H (75-99) mg/dL Hemoglobin A1c (4.0-6.0) % Calcium (8.4-10.2) mg/dL AST (14-36) U/L Total Protein (6.3-8.2) g/dL Albumin (3.5-5.0) g/dL 11/16/18 11/16/18 11/16/18 Range/Units 16:26 17:15 18:13 RBC (3.80-5.40) m/uL Hgb (11.4-16.0) gm/dL Hct (34.0-46.0) % Neutrophils # (1.3-7.7) k/uL Lymphocytes # (1.0-4.8) k/uL ABG pCO2 (35-45) mmHg ABG pO2 (83-108) mmHg ABG HCO3 (21-25) mmol/L ABG O2 Saturation (94-97) % Chloride (98-107) mmol/L Carbon Dioxide (22-30) mmol/L BUN (7-17) mg/dL Creatinine (0.52-1.04) mg/dL Glucose (74-99) mg/dL POC Glucose (mg/dL) 145 H 187 H 122 H (75-99) mg/dL Hemoglobin A1c (4.0-6.0) % Calcium (8.4-10.2) mg/dL AST (14-36) U/L Total Protein (6.3-8.2) g/dL Albumin (3.5-5.0) g/dL 11/16/18 11/16/18 11/16/18 Range/Units 19:11 20:04 20:53 RBC (3.80-5.40) m/uL Hgb (11.4-16.0) gm/dL Hct (34.0-46.0) % Neutrophils # (1.3-7.7) k/uL Lymphocytes # (1.0-4.8) k/uL ABG pCO2 (35-45) mmHg ABG pO2 (83-108) mmHg ABG HCO3 (21-25) mmol/L ABG O2 Saturation (94-97) % Chloride (98-107) mmol/L Carbon Dioxide (22-30) mmol/L BUN (7-17) mg/dL Creatinine (0.52-1.04) mg/dL Glucose (74-99) mg/dL POC Glucose (mg/dL) 138 H 146 H 150 H (75-99) mg/dL Hemoglobin A1c (4.0-6.0) % Calcium (8.4-10.2) mg/dL AST (14-36) U/L Total Protein (6.3-8.2) g/dL Albumin (3.5-5.0) g/dL 11/16/18 11/16/18 11/17/18 Range/Units 22:01 22:58 00:10 RBC (3.80-5.40) m/uL Hgb (11.4-16.0) gm/dL Hct (34.0-46.0) % Neutrophils # (1.3-7.7) k/uL Lymphocytes # (1.0-4.8) k/uL ABG pCO2 (35-45) mmHg ABG pO2 (83-108) mmHg ABG HCO3 (21-25) mmol/L ABG O2 Saturation (94-97) % Chloride (98-107) mmol/L Carbon Dioxide (22-30) mmol/L BUN (7-17) mg/dL Creatinine (0.52-1.04) mg/dL Glucose (74-99) mg/dL POC Glucose (mg/dL) 161 H 150 H 152 H (75-99) mg/dL Hemoglobin A1c (4.0-6.0) % Calcium (8.4-10.2) mg/dL AST (14-36) U/L Total Protein (6.3-8.2) g/dL Albumin (3.5-5.0) g/dL 11/17/18 11/17/18 11/17/18 Range/Units 01:02 02:58 05:05 RBC (3.80-5.40) m/uL Hgb (11.4-16.0) gm/dL Hct (34.0-46.0) % Neutrophils # (1.3-7.7) k/uL Lymphocytes # (1.0-4.8) k/uL ABG pCO2 (35-45) mmHg ABG pO2 (83-108) mmHg ABG HCO3 (21-25) mmol/L ABG O2 Saturation (94-97) % Chloride (98-107) mmol/L Carbon Dioxide (22-30) mmol/L BUN (7-17) mg/dL Creatinine (0.52-1.04) mg/dL Glucose (74-99) mg/dL POC Glucose (mg/dL) 159 H 144 H 151 H (75-99) mg/dL Hemoglobin A1c (4.0-6.0) % Calcium (8.4-10.2) mg/dL AST (14-36) U/L Total Protein (6.3-8.2) g/dL Albumin (3.5-5.0) g/dL 11/17/18 11/17/18 11/17/18 Range/Units 05:23 05:30 05:30 RBC 3.02 L (3.80-5.40) m/uL Hgb 9.5 L (11.4-16.0) gm/dL Hct 29.5 L (34.0-46.0) % Neutrophils # (1.3-7.7) k/uL Lymphocytes # (1.0-4.8) k/uL ABG pCO2 33 L (35-45) mmHg ABG pO2 112 H (83-108) mmHg ABG HCO3 20 L (21-25) mmol/L ABG O2 Saturation 98.5 H (94-97) % Chloride 113 H (98-107) mmol/L Carbon Dioxide 20 L (22-30) mmol/L BUN 20 H (7-17) mg/dL Creatinine (0.52-1.04) mg/dL Glucose 156 H (74-99) mg/dL POC Glucose (mg/dL) (75-99) mg/dL Hemoglobin A1c (4.0-6.0) % Calcium 7.9 L (8.4-10.2) mg/dL AST (14-36) U/L Total Protein (6.3-8.2) g/dL Albumin (3.5-5.0) g/dL 11/17/18 Range/Units 06:55 RBC (3.80-5.40) m/uL Hgb (11.4-16.0) gm/dL Hct (34.0-46.0) % Neutrophils # (1.3-7.7) k/uL Lymphocytes # (1.0-4.8) k/uL ABG pCO2 (35-45) mmHg ABG pO2 (83-108) mmHg ABG HCO3 (21-25) mmol/L ABG O2 Saturation (94-97) % Chloride (98-107) mmol/L Carbon Dioxide (22-30) mmol/L BUN (7-17) mg/dL Creatinine (0.52-1.04) mg/dL Glucose (74-99) mg/dL POC Glucose (mg/dL) 171 H (75-99) mg/dL Hemoglobin A1c (4.0-6.0) % Calcium (8.4-10.2) mg/dL AST (14-36) U/L Total Protein (6.3-8.2) g/dL Albumin (3.5-5.0) g/dL Microbiology - Last 24 Hours (Table) 11/15/18 16:54 Blood Culture - Preliminary Blood No Growth after 24 hours 11/16/18 04:13 Gram Stain - Preliminary Sputum Sputum Culture - Preliminary 11/15/18 10:30 Gram Stain - Preliminary Aspirate Body Fluid Culture - Preliminary Presumptive Staph aureus Assessment and Plan (1) Septic arthritis of left ankle Current Visit: Yes Status: Acute Code(s): M00.9 - PYOGENIC ARTHRITIS, UNSPECIFIED SNOMED Code(s): 4009775945588653 (2) Cellulitis of left lower extremity Current Visit: Yes Status: Acute Code(s): L03.116 - CELLULITIS OF LEFT LOWER LIMB SNOMED Code(s): 262562763 Plan: The clinical findings are discussed with the nursing staff. Dressing has been changed today. Dressing may be changed daily. I have ordered IV Dilaudid for pain as needed. We will continue to follow.
[2018-11-17 08:26] LABS: Glucose,Whole Blood 177 mg/dL (75-99)
--- NOTE | 2018-11-17 08:39 | XR ---
EXAMINATION TYPE: XR chest 1V portable DATE OF EXAM: 11/17/2018 COMPARISON: 11/16/2018 HISTORY: Tube placement. Ventilatory dependent respiratory failure TECHNIQUE: Single frontal view of the chest is obtained. FINDINGS: Slight worsening in the right pleural effusion as there is obscuration of the right hemidi aphragm with stable left small pleural effusion. Endotracheal tube, enteric tube, left internal jugul ar central venous catheter, and mild degree pulmonary vascular congestion are stable. Cardiomediastin al silhouette is enlarged but partially obscured. IMPRESSION: Slightly worsening fluid overload with increasing small right pleural effusion and stabl e left pleural effusion. Stable lines and tubes.
[2018-11-17] MEDS: CHLORHEXIDINE GLUCONATE 15 ML CUP MUCOUS MEM SCH ×2 (09:01→20:19)
[2018-11-17] MEDS: CEFEPIME 2 GM in SODIUM CHLORIDE 0.9% 100 ML IVPB SCH (09:01)
[2018-11-17] MEDS: CLOPIDOGREL 75 MG TAB PO SCH (09:01)
[2018-11-17] MEDS: ASPIRIN 81 MG PO SCH (09:01)
[2018-11-17 09:02] LABS: Glucose,Whole Blood 181 mg/dL (75-99)
[2018-11-17] MEDS: HYDROmorphone 1 MG/ML 1 ML SYRINGE IVP PRN ×3 (09:15→23:43)
[2018-11-17 10:11] LABS: Glucose,Whole Blood 200 mg/dL (75-99)
[2018-11-17 10:57] LABS: Glucose,Whole Blood 205 mg/dL (75-99)
--- NOTE | 2018-11-17 12:03 | P.PN ---
<Gwen Finney M - Last Filed: 11/17/18 11:54> Subjective Progress Note Date: 11/17/18 Principal diagnosis: Acute hypoxic respiratory failure related to sepsis. On 11/16/2018 I'm seeing this patient for a follow-up. The patient was ordered to seen earlier this morning by my partner. In any rate, the patient is currently intubated on a mechanical ventilator. She is an assist-control mode at a rate of 26 with a tidal volume of 400 and FiO2 of 50% with a PEEP of 5. She was having significant amount of air leak and this was in the order of 150 mL and this was adjusted at the bedside. Chest x-ray was reviewed and shows lower lobe active pulmonary infiltrates. Not get was reviewed. The patient is currently afebrile. The left ankle wound was checked. There is a drain within the joint which is not putting much of output. She is on a combination of cefepime and vancomycin. The patient is on propofol at 50 mics. No pressors for now. She is going to complete the third liter of bolus. She is producing urine output. Blood work will be reviewed and the repeated. She is having elevated blood sugar. Insulin drip will be started all of the events that occurred yesterday were noted On 11/17/2018 patient seen in follow-up in the intensive care unit, she she remains intubated, on mechanical ventilator, current vent settings are assist- control mode of ventilation with a rate of 26, tidal vital 400, FiO2 of 40% and PEEP of 5. This morning's blood gas has been reviewed, showing pO2 of 112, pCO2 of 33, pH of 7.39, this was done on FiO2 of 50%.'s morning's chest x-ray has been reviewed, showing slightly worsening fluid overload with increasing small right pleural effusion and stable left pleural effusion and patient was given a dose of IV Lasix. Her dynamically remains stable, not requiring any vasopressor support at this time, IV fluids have been decreased down to keep open, Diprivan and is currently at 40 mics per kilo per minute. Plan infusion is at 4 units p er hour. Antibiotic coverage in the form of cefepime and vancomycin, microbiology showing Staphylococcus aureus in the left ankle aspirate, blood cultures were negative. Sputum culture showed no growth. His labs have been reviewed, showing white blood cell count of 9.7, hemoglobin of 9.5, serum sodium of 140, potassium is 4.4, chloride is 113, CO2 is 20, BUN of 20, creatinine 0.95. Orthopedic surgeries following, and the day remove the Ave drain from the left ankle to is draining minimal amount of sanguinous drainage. Afebrile, tachycardic, with a heart rate between 95-103 BPM. Objective - Vital Signs Vital signs: Vital Signs Temp 98.6 F 11/17/18 08:00 Pulse 103 H 11/17/18 11:48 Resp 26 H 11/17/18 11:30 BP 99/54 11/17/18 11:30 Pulse Ox 97 11/17/18 11:30 Intake & Output 11/16/18 11/17/18 11/17/18 18:59 06:59 18:59 Intake Total 2623.736 1524.452 503.354 Output Total 8677 922 2124 Balance 1248.736 914.452 -651.646 Weight 90.718 kg 106.5 kg 106.5 kg Intake: IV 2266 1197 398 Cefepime 2 gm In Sodium 100 100 Chloride 0.9% 100 ml @ 200 mls/hr IVPB Q12HR [facility] Rx#:[id number] Dextrose 10% 250 Normal Saline Pressure 66 72 18 Bag Sodium Chloride 0.9% 1, 825 900 155 000 ml @ 10 mls/hr IV . Q24H [facility] Rx#:[id number] Sodium Chloride 0.9% 2, 1000 000 ml @ 999 mls/hr IV . Q2H1M [facility] Rx#:[id number] Vancomycin 1,500 mg In 125 Sodium Chloride 0.9% 250 ml @ 125 mls/hr IVPB ONCE [facility] Rx#:[id number] Vancomycin 1,500 mg In 125 125 Sodium Chloride 0.9% 250 ml @ 125 mls/hr IVPB Q16H [facility] Rx#:[id number] Intake, IV Titration 297.736 327.452 105.354 Amount Cefepime 2 gm In Sodium 100 Chloride 0.9% 100 ml @ 200 mls/hr IVPB Q12HR [facility] Rx#:[id number] Insulin Regular 100 unit 29.307 0.48 5.354 In Sodium Chloride 0.9% 100 ml @ Per Protocol IV .Q0M [facility] Rx#:[id number] Propofol 1,000 mg In 168.429 326.972 100.000 Empty Bag 1 bag @ Titrate IV .Q0M [facility] Rx#: [id number] Other 60 Output: Gastric Drainage 150 Urine 5127 532 9852 Other: Voiding Method Indwelling Catheter Indwelling Catheter Indwelling Catheter ABP, PAP, CO, CI - Last Documented Arterial Blood Pressure 120/101 - Exam GENERAL EXAM: Obese, 68-year-old white female, intubated, sedated on mechanical ventilator comfortable in no apparent distress. HEAD: Normocephalic/atraumatic. EYES: Normal reaction of pupils, equal size. Conjunctiva pink, sclera white. NOSE: Clear with pink turbinates. THROAT: No erythema or exudates. NECK: No masses, no JVD, no thyroid enlargement, no adenopathy. CHEST: No chest wall deformity. Symmetrical expansion. LUNGS: Equal air entry with no crackles, wheeze, rhonchi or dullness. CVS: Regular rate and rhythm, normal S1 and S2, no gallops, no murmurs, no rubs ABDOMEN: Soft, nontender. No hepatosplenomegaly, normal bowel sounds, no guarding or rigidity. EXTREMITIES: No clubbing, left lower extremity edema, with a slight warmth in the left ankle joint, left ankle joint incision clean dry and intact, Ave drain has been removed small amount of sanguinous drainage on the dressing., no cyanosis, 2+ pulses and upper and lower extremities. MUSCULOSKELETAL: Muscle strength and tone normal. SPINE: No scoliosis or deformity SKIN: No rashes CENTRAL NERVOUS SYSTEM: Intubated, sedated. No focal deficits, tone is normal in all 4 extremities. - Labs CBC & Chem 7: 11/17/18 05:30 11/17/18 05:30 Labs: Abnormal Lab Results - Last 24 Hours (Table) 11/16/18 11/16/18 11/16/18 Range/Units 10:20 10:25 12:11 RBC 2.93 L (3.80-5.40) m/uL Hgb 9.5 L D (11.4-16.0) gm/dL Hct 28.6 L (34.0-46.0) % Neutrophils # 8.3 H (1.3-7.7) k/uL Lymphocytes # 0.8 L (1.0-4.8) k/uL ABG pCO2 (35-45) mmHg ABG pO2 (83-108) mmHg ABG HCO3 (21-25) mmol/L ABG O2 Saturation (94-97) % Chloride 112 H (98-107) mmol/L Carbon Dioxide 20 L (22-30) mmol/L BUN 21 H (7-17) mg/dL Creatinine 1.10 H (0.52-1.04) mg/dL Glucose 229 H (74-99) mg/dL POC Glucose (mg/dL) 180 H (75-99) mg/dL Calcium 7.5 L (8.4-10.2) mg/dL AST 120 H (14-36) U/L Total Protein 4.9 L (6.3-8.2) g/dL Albumin 2.5 L (3.5-5.0) g/dL 11/16/18 11/16/18 11/16/18 Range/Units 13:04 14:04 14:48 RBC (3.80-5.40) m/uL Hgb (11.4-16.0) gm/dL Hct (34.0-46.0) % Neutrophils # (1.3-7.7) k/uL Lymphocytes # (1.0-4.8) k/uL ABG pCO2 (35-45) mmHg ABG pO2 (83-108) mmHg ABG HCO3 (21-25) mmol/L ABG O2 Saturation (94-97) % Chloride (98-107) mmol/L Carbon Dioxide (22-30) mmol/L BUN (7-17) mg/dL Creatinine (0.52-1.04) mg/dL Glucose (74-99) mg/dL POC Glucose (mg/dL) 165 H 162 H 147 H (75-99) mg/dL Calcium (8.4-10.2) mg/dL AST (14-36) U/L Total Protein (6.3-8.2) g/dL Albumin (3.5-5.0) g/dL 11/16/18 11/16/18 11/16/18 Range/Units 16:26 17:15 18:13 RBC (3.80-5.40) m/uL Hgb (11.4-16.0) gm/dL Hct (34.0-46.0) % Neutrophils # (1.3-7.7) k/uL Lymphocytes # (1.0-4.8) k/uL ABG pCO2 (35-45) mmHg ABG pO2 (83-108) mmHg ABG HCO3 (21-25) mmol/L ABG O2 Saturation (94-97) % Chloride (98-107) mmol/L Carbon Dioxide (22-30) mmol/L BUN (7-17) mg/dL Creatinine (0.52-1.04) mg/dL Glucose (74-99) mg/dL POC Glucose (mg/dL) 145 H 187 H 122 H (75-99) mg/dL Calcium (8.4-10.2) mg/dL AST (14-36) U/L Total Protein (6.3-8.2) g/dL Albumin (3.5-5.0) g/dL 11/16/18 11/16/18 11/16/18 Range/Units 19:11 20:04 20:53 RBC (3.80-5.40) m/uL Hgb (11.4-16.0) gm/dL Hct (34.0-46.0) % Neutrophils # (1.3-7.7) k/uL Lymphocytes # (1.0-4.8) k/uL ABG pCO2 (35-45) mmHg ABG pO2 (83-108) mmHg ABG HCO3 (21-25) mmol/L ABG O2 Saturation (94-97) % Chloride (98-107) mmol/L Carbon Dioxide (22-30) mmol/L BUN (7-17) mg/dL Creatinine (0.52-1.04) mg/dL Glucose (74-99) mg/dL POC Glucose (mg/dL) 138 H 146 H 150 H (75-99) mg/dL Calcium (8.4-10.2) mg/dL AST (14-36) U/L Total Protein (6.3-8.2) g/dL Albumin (3.5-5.0) g/dL 11/16/18 11/16/18 11/17/18 Range/Units 22:01 22:58 00:10 RBC (3.80-5.40) m/uL Hgb (11.4-16.0) gm/dL Hct (34.0-46.0) % Neutrophils # (1.3-7.7) k/uL Lymphocytes # (1.0-4.8) k/uL ABG pCO2 (35-45) mmHg ABG pO2 (83-108) mmHg ABG HCO3 (21-25) mmol/L ABG O2 Saturation (94-97) % Chloride (98-107) mmol/L Carbon Dioxide (22-30) mmol/L BUN (7-17) mg/dL Creatinine (0.52-1.04) mg/dL Glucose (74-99) mg/dL POC Glucose (mg/dL) 161 H 150 H 152 H (75-99) mg/dL Calcium (8.4-10.2) mg/dL AST (14-36) U/L Total Protein (6.3-8.2) g/dL Albumin (3.5-5.0) g/dL 11/17/18 11/17/18 11/17/18 Range/Units 01:02 02:58 05:05 RBC (3.80-5.40) m/uL Hgb (11.4-16.0) gm/dL Hct (34.0-46.0) % Neutrophils # (1.3-7.7) k/uL Lymphocytes # (1.0-4.8) k/uL ABG pCO2 (35-45) mmHg ABG pO2 (83-108) mmHg ABG HCO3 (21-25) mmol/L ABG O2 Saturation (94-97) % Chloride (98-107) mmol/L Carbon Dioxide (22-30) mmol/L BUN (7-17) mg/dL Creatinine (0.52-1.04) mg/dL Glucose (74-99) mg/dL POC Glucose (mg/dL) 159 H 144 H 151 H (75-99) mg/dL Calcium (8.4-10.2) mg/dL AST (14-36) U/L Total Protein (6.3-8.2) g/dL Albumin (3.5-5.0) g/dL 11/17/18 11/17/18 11/17/18 Range/Units 05:23 05:30 05:30 RBC 3.02 L (3.80-5.40) m/uL Hgb 9.5 L (11.4-16.0) gm/dL Hct 29.5 L (34.0-46.0) % Neutrophils # (1.3-7.7) k/uL Lymphocytes # (1.0-4.8) k/uL ABG pCO2 33 L (35-45) mmHg ABG pO2 112 H (83-108) mmHg ABG HCO3 20 L (21-25) mmol/L ABG O2 Saturation 98.5 H (94-97) % Chloride 113 H (98-107) mmol/L Carbon Dioxide 20 L (22-30) mmol/L BUN 20 H (7-17) mg/dL Creatinine (0.52-1.04) mg/dL Glucose 156 H (74-99) mg/dL POC Glucose (mg/dL) (75-99) mg/dL Calcium 7.9 L (8.4-10.2) mg/dL AST (14-36) U/L Total Protein (6.3-8.2) g/dL Albumin (3.5-5.0) g/dL 11/17/18 11/17/18 11/17/18 Range/Units 06:55 08:24 09:00 RBC (3.80-5.40) m/uL Hgb (11.4-16.0) gm/dL Hct (34.0-46.0) % Neutrophils # (1.3-7.7) k/uL Lymphocytes # (1.0-4.8) k/uL ABG pCO2 (35-45) mmHg ABG pO2 (83-108) mmHg ABG HCO3 (21-25) mmol/L ABG O2 Saturation (94-97) % Chloride (98-107) mmol/L Carbon Dioxide (22-30) mmol/L BUN (7-17) mg/dL Creatinine (0.52-1.04) mg/dL Glucose (74-99) mg/dL POC Glucose (mg/dL) 171 H 177 H 181 H (75-99) mg/dL Calcium (8.4-10.2) mg/dL AST (14-36) U/L Total Protein (6.3-8.2) g/dL Albumin (3.5-5.0) g/dL 11/17/18 11/17/18 Range/Units 10:09 10:57 RBC (3.80-5.40) m/uL Hgb (11.4-16.0) gm/dL Hct (34.0-46.0) % Neutrophils # (1.3-7.7) k/uL Lymphocytes # (1.0-4.8) k/uL ABG pCO2 (35-45) mmHg ABG pO2 (83-108) mmHg ABG HCO3 (21-25) mmol/L ABG O2 Saturation (94-97) % Chloride (98-107) mmol/L Carbon Dioxide (22-30) mmol/L BUN (7-17) mg/dL Creatinine (0.52-1.04) mg/dL Glucose (74-99) mg/dL POC Glucose (mg/dL) 200 H 205 H (75-99) mg/dL Calcium (8.4-10.2) mg/dL AST (14-36) U/L Total Protein (6.3-8.2) g/dL Albumin (3.5-5.0) g/dL Microbiology - Last 24 Hours (Table) 11/16/18 08:45 Blood Culture - Preliminary Blood No Growth after 24 hours 11/16/18 08:40 Blood Culture - Preliminary Blood No Growth after 24 hours 11/15/18 10:30 Gram Stain - Final Aspirate Body Fluid Culture - Final Staphylococcus aureus 11/15/18 16:54 Blood Culture - Preliminary Blood No Growth after 24 hours 11/16/18 04:13 Gram Stain - Preliminary Sputum Sputum Culture - Preliminary Assessment and Plan Plan: Assessment: 1 acute hypoxic respiratory failure probably related to metabolic acidosis an underlying sepsis. The patient became progressively lethargic and obtunded and she developed acidosis which was a combination of respiratory metabolic acidosis in addition to lower lobe by the pulmonary infiltrates. The patient subsequently went to acute hypoxic respiratory failure requiring intubation mechanical ventilation 2 left ankle septic arthritis, post incision and drainage, aspirate cultures positive for Staphylococcus aureus 3 metabolic acidosis/lactic acidosis 4 hypotension, improved 5 diabetes mellitus with elevated blood sugar 6 hyperlipidemia 7 hypertension 8 acute kidney injury 9 acute hyperkalemia likely secondary to acute kidney injury and metabolic acidosis. 10 mild fluid overload, with the chest x-ray showing small bilateral pleural effusions and pulmonary vascular congestion Plan: Continue current medical treatment, no plans for spontaneous breathing trials today, chest x-ray today shows worsening pulmonary vascular congestion, and bilateral pleural effusions, patient received a dose of IV Lasix, received IV fluids down to keep open. Continue with current antibiotics, left ankle aspirate culture showed Staphylococcus aureus, patient is currently on a combination of cefepime and vancomycin, has been afebrile, hemodynamically patient is stable. Start tube feedings, will continue with insulin infusion. Continue with nebulized bronchodilators I performed a history & physical examination of the patient and discussed their management with my nurse practitioner, Gwen Finney. I reviewed the nurse practitioner's note and agree with the documented findings and plan of care. Lung sounds are positive for diminished breath sounds. The findings and the impression was discussed with the patient. I attest to the documentation by the nurse practitioner. Time with Patient: Greater than 30 <Mattie Escobar - Last Filed: 11/17/18 16:48> Objective - Vital Signs Vital signs: Vital Signs Temp 98.6 F 11/17/18 08:00 Pulse 104 H 11/17/18 16:01 Resp 26 H 11/17/18 11:30 BP 99/54 11/17/18 11:30 Pulse Ox 97 11/17/18 11:30 Intake & Output 11/16/18 11/17/18 11/17/18 18:59 06:59 18:59 Intake Total 2623.736 1524.452 593.166 Output Total 1458 056 1509 Balance 1248.736 914.452 -561.834 Weight 90.718 kg 106.5 kg 106.5 kg Intake: IV 2266 1197 398 Cefepime 2 gm In Sodium 100 100 Chloride 0.9% 100 ml @ 200 mls/hr IVPB Q12HR [facility] Rx#:[id number] Dextrose 10% 250 Normal Saline Pressure 66 72 18 Bag Sodium Chloride 0.9% 1, 825 900 155 000 ml @ 10 mls/hr IV . Q24H [facility] Rx#:[id number] Sodium Chloride 0.9% 2, 1000 000 ml @ 999 mls/hr IV . Q2H1M [facility] Rx#:[id number] Vancomycin 1,500 mg In 125 Sodium Chloride 0.9% 250 ml @ 125 mls/hr IVPB ONCE [facility] Rx#:[id number] Vancomycin 1,500 mg In 125 125 Sodium Chloride 0.9% 250 ml @ 125 mls/hr IVPB Q16H [facility] Rx#:[id number] Intake, IV Titration 297.736 327.452 195.166 Amount Cefepime 2 gm In Sodium 100 Chloride 0.9% 100 ml @ 200 mls/hr IVPB Q12HR [facility] Rx#:[id number] Insulin Regular 100 unit 29.307 0.48 17.474 In Sodium Chloride 0.9% 100 ml @ Per Protocol IV .Q0M [facility] Rx#:[id number] Propofol 1,000 mg In 168.429 326.972 177.692 Empty Bag 1 bag @ Titrate IV .Q0M [facility] Rx#: [id number] Other 60 Output: Gastric Drainage 150 Urine 7794 306 1994 Other: Voiding Method Indwelling Catheter Indwelling Catheter Indwelling Catheter ABP, PAP, CO, CI - Last Documented Arterial Blood Pressure 120/101 - Labs CBC & Chem 7: 11/17/18 05:30 11/17/18 05:30 Labs: Abnormal Lab Results - Last 24 Hours (Table) 11/16/18 11/16/18 11/16/18 Range/Units 17:15 18:13 19:11 RBC (3.80-5.40) m/uL Hgb (11.4-16.0) gm/dL Hct (34.0-46.0) % ABG pCO2 (35-45) mmHg ABG pO2 (83-108) mmHg ABG HCO3 (21-25) mmol/L ABG O2 Saturation (94-97) % Chloride (98-107) mmol/L Carbon Dioxide (22-30) mmol/L BUN (7-17) mg/dL Glucose (74-99) mg/dL POC Glucose (mg/dL) 187 H 122 H 138 H (75-99) mg/dL Calcium (8.4-10.2) mg/dL 11/16/18 11/16/18 11/16/18 Range/Units 20:04 20:53 22:01 RBC (3.80-5.40) m/uL Hgb (11.4-16.0) gm/dL Hct (34.0-46.0) % ABG pCO2 (35-45) mmHg ABG pO2 (83-108) mmHg ABG HCO3 (21-25) mmol/L ABG O2 Saturation (94-97) % Chloride (98-107) mmol/L Carbon Dioxide (22-30) mmol/L BUN (7-17) mg/dL Glucose (74-99) mg/dL POC Glucose (mg/dL) 146 H 150 H 161 H (75-99) mg/dL Calcium (8.4-10.2) mg/dL 11/16/18 11/17/18 11/17/18 Range/Units 22:58 00:10 01:02 RBC (3.80-5.40) m/uL Hgb (11.4-16.0) gm/dL Hct (34.0-46.0) % ABG pCO2 (35-45) mmHg ABG pO2 (83-108) mmHg ABG HCO3 (21-25) mmol/L ABG O2 Saturation (94-97) % Chloride (98-107) mmol/L Carbon Dioxide (22-30) mmol/L BUN (7-17) mg/dL Glucose (74-99) mg/dL POC Glucose (mg/dL) 150 H 152 H 159 H (75-99) mg/dL Calcium (8.4-10.2) mg/dL 11/17/18 11/17/18 11/17/18 Range/Units 02:58 05:05 05:23 RBC (3.80-5.40) m/uL Hgb (11.4-16.0) gm/dL Hct (34.0-46.0) % ABG pCO2 33 L (35-45) mmHg ABG pO2 112 H (83-108) mmHg ABG HCO3 20 L (21-25) mmol/L ABG O2 Saturation 98.5 H (94-97) % Chloride (98-107) mmol/L Carbon Dioxide (22-30) mmol/L BUN (7-17) mg/dL Glucose (74-99) mg/dL POC Glucose (mg/dL) 144 H 151 H (75-99) mg/dL Calcium (8.4-10.2) mg/dL 11/17/18 11/17/18 11/17/18 Range/Units 05:30 05:30 06:55 RBC 3.02 L (3.80-5.40) m/uL Hgb 9.5 L (11.4-16.0) gm/dL Hct 29.5 L (34.0-46.0) % ABG pCO2 (35-45) mmHg ABG pO2 (83-108) mmHg ABG HCO3 (21-25) mmol/L ABG O2 Saturation (94-97) % Chloride 113 H (98-107) mmol/L Carbon Dioxide 20 L (22-30) mmol/L BUN 20 H (7-17) mg/dL Glucose 156 H (74-99) mg/dL POC Glucose (mg/dL) 171 H (75-99) mg/dL Calcium 7.9 L (8.4-10.2) mg/dL 11/17/18 11/17/18 11/17/18 Range/Units 08:24 09:00 10:09 RBC (3.80-5.40) m/uL Hgb (11.4-16.0) gm/dL Hct (34.0-46.0) % ABG pCO2 (35-45) mmHg ABG pO2 (83-108) mmHg ABG HCO3 (21-25) mmol/L ABG O2 Saturation (94-97) % Chloride (98-107) mmol/L Carbon Dioxide (22-30) mmol/L BUN (7-17) mg/dL Glucose (74-99) mg/dL POC Glucose (mg/dL) 177 H 181 H 200 H (75-99) mg/dL Calcium (8.4-10.2) mg/dL 11/17/18 11/17/18 11/17/18 Range/Units 10:57 12:20 12:55 RBC (3.80-5.40) m/uL Hgb (11.4-16.0) gm/dL Hct (34.0-46.0) % ABG pCO2 (35-45) mmHg ABG pO2 (83-108) mmHg ABG HCO3 (21-25) mmol/L ABG O2 Saturation (94-97) % Chloride (98-107) mmol/L Carbon Dioxide (22-30) mmol/L BUN (7-17) mg/dL Glucose (74-99) mg/dL POC Glucose (mg/dL) 205 H 180 H 184 H (75-99) mg/dL Calcium (8.4-10.2) mg/dL 11/17/18 11/17/18 Range/Units 14:26 15:50 RBC (3.80-5.40) m/uL Hgb (11.4-16.0) gm/dL Hct (34.0-46.0) % ABG pCO2 (35-45) mmHg ABG pO2 (83-108) mmHg ABG HCO3 (21-25) mmol/L ABG O2 Saturation (94-97) % Chloride (98-107) mmol/L Carbon Dioxide (22-30) mmol/L BUN (7-17) mg/dL Glucose (74-99) mg/dL POC Glucose (mg/dL) 130 H 169 H (75-99) mg/dL Calcium (8.4-10.2) mg/dL Microbiology - Last 24 Hours (Table) 11/16/18 08:45 Blood Culture - Preliminary Blood No Growth after 24 hours 11/16/18 08:40 Blood Culture - Preliminary Blood No Growth after 24 hours 11/15/18 10:30 Gram Stain - Final Aspirate Body Fluid Culture - Final Staphylococcus aureus 11/15/18 16:54 Blood Culture - Preliminary Blood No Growth after 24 hours 11/16/18 04:13 Gram Stain - Preliminary Sputum Sputum Culture - Preliminary Assessment and Plan Plan: This is a critically care evaluation that was done in conjunction with the nurse practitioner. I fully agree and recommendation stated above. The patient will be started on tube feeds. Continue the current antibiotic coverage. The Ave drain was removed from the left ankle. Cultures are positive for staph aureus. Continue same antibiotic coverage. The IV Fluids to KVO. Start the Patient IV Lasix. Blood Gases Was Reviewed. Reinsert Another Artline Catheter and we'll stabilize her condition further and reevaluated in a.m. for possible weaning trials. This critically care evaluation was done and more than 30 minutes.
[2018-11-17 12:21] LABS: Glucose,Whole Blood 180 mg/dL (75-99)
[2018-11-17 12:56] LABS: Glucose,Whole Blood 184 mg/dL (75-99)
[2018-11-17 14:27] LABS: Glucose,Whole Blood 130 mg/dL (75-99)
[2018-11-17] MEDS: NOREPINEPHRINE 4 MG in SODIUM CHLORIDE 0.9% 250 ML IV SCH (15:09)
--- NOTE | 2018-11-17 15:28 | PN ---
PROGRESS NOTE DATE OF SERVICE: 11/17/2018 REASON FOR FOLLOWUP: Left ankle abscess and cellulitis. INTERVAL HISTORY: The patient is currently afebrile. The patient is hemodynamically stable, not requiring any pressor support. FiO2 is stable. She remains to be intubated on the vent and unable to provide any history. PHYSICAL EXAMINATION: Blood pressure is 99/50 with a pulse of 96, temperature 98, she is 95% on room air. General description is an elderly female lying in bed in no distress. RESPIRATORY SYSTEM: Unlabored breathing, clear to auscultation anteriorly. HEART: S1, S2. Regular rate and rhythm. ABDOMEN: Soft, no tenderness. Left ankle is currently dressed up, no obvious drainage on the dressing. LABS: Hemoglobin 9.4, white count 9.7, BUN of 20, creatinine 0.95. Wound culture finalized with MSSA. Blood culture has been negative. Chest x-ray with CHF pattern. DIAGNOSTIC IMPRESSION AND PLAN: Patient with left ankle abscess, status post drainage with no evidence of any extension down to the joint. Cultures have been finalized with MSSA. Will discontinue cefepime and vancomycin. Will start the patient on cefazolin 2 g q.8 hours. Monitor clinical course closely. MMODL / IJN: [id number] /
[2018-11-17 15:51] LABS: Glucose,Whole Blood 169 mg/dL (75-99)
[2018-11-17] MEDS ORDERED: FUROSEMIDE 10 MG/ML 4 ML VIAL IV ONE (16:00)
[2018-11-17 17:06] LABS: Glucose,Whole Blood 177 mg/dL (75-99)
[2018-11-17 19:03] LABS: Glucose,Whole Blood 161 mg/dL (75-99)
[2018-11-17 19:52] LABS: Glucose,Whole Blood 151 mg/dL (75-99)
--- NOTE | 2018-11-17 20:05 | P.PN ---
Progress Note - Text Progress Note Date: 11/17/18 Chief Complaint: Left ankle pain Interval history: This is a pleasant 68-year-old patient of Dr. Maddox. Chronic stable medical conditions include diabetes, hypertension, hyperlipidemia,. Patient complains of pain in his left ankle for quite some time. Seems to progressively gotten worse. This pain and swelling. Denies any fever and chills. Denies any injury. Patient the best of historians. Admitted for the same. No fever no chills. Pain is localized to the left ankle and worse with activity. Finds it difficult to weight-bear. Better with rest. On November 15, arthrocentesis was done of the left ankle. Pus was obtained. Later patient was taken down to the OR for further drainage. Because of metabolic acidosis and sepsis patient went into respiratory distress and was intubated Today-remains in the ICU. Intubated. PEEP of 5 and FiO2 50%. Admitted to shows sinus rhythm. Drips include propofol. 2 feeding is started at 10 mL an hour. Review of systems: Cannot be done as patient is intubated Active Medications Albuterol/Ipratropium (Duoneb 0.5 Mg-3 Mg/3 Ml Soln) 3 ml INHALATION RT-Q4H [facility] Last Admin: 11/17/18 18:48 Dose: 3 ml Documented by: Albuterol/Ipratropium (Duoneb 0.5 Mg-3 Mg/3 Ml Soln) 3 ml INHALATION RT-Q2H PRN PRN Reason: Shortness Of Breath Or Wheezing Aspirin (Aspirin) 81 mg PO DAILY [facility] Last Admin: 11/17/18 09:01 Dose: 81 mg Documented by: Chlorhexidine Gluconate (Peridex) 15 ml MUCOUS MEM BID [facility] Last Admin: 11/17/18 09:01 Dose: 15 ml Documented by: Clopidogrel Bisulfate (Plavix) 75 mg PO DAILY [facility] Last Admin: 11/17/18 09:01 Dose: 75 mg Documented by: Enoxaparin Sodium (Lovenox) 40 mg SQ Q24H [facility] Last Admin: 11/16/18 22:56 Dose: 40 mg Documented by: Hydromorphone HCl (Dilaudid) 1 mg IVP Q4HR PRN PRN Reason: Pain Last Admin: 11/17/18 19:00 Dose: 1 mg Documented by: Sodium Chloride (Saline 0.9%) 1,000 mls @ 10 mls/hr IV .Q24H [facility] Last Admin: 11/17/18 18:56 Dose: Not Given Documented by: Propofol 1,000 mg/ IV Solution 100 mls @ 0 mls/hr IV .Q0M [facility]; Protocol Last Admin: 11/17/18 18:40 Dose: 45 mcg/kg/min, 28.755 mls/hr Documented by: Insulin Human Regular 100 unit (/ Sodium Chloride) 101 mls @ 0 mls/hr IV .Q0M [facility]; Protocol Last Titration: 11/17/18 15:50 Dose: 2 units/hr, 2.02 mls/hr Documented by: Norepinephrine Bitartrate 4 mg (/ Sodium Chloride) 254 mls @ 17.282 mls/hr IV .[id number] [facility]; Protocol Last Admin: 11/17/18 15:09 Dose: Not Given Documented by: Cefazolin Sodium 2 gm/ Sodium (Chloride) 50 mls @ 100 mls/hr IVPB Q8HR [facility] Last Admin: 11/17/18 15:34 Dose: 100 mls/hr Documented by: Naloxone HCl (Narcan) 0.2 mg IV Q2M PRN PRN Reason: Opioid Reversal Ondansetron HCl (Zofran) 4 mg IVP Q8HR PRN PRN Reason: Nausea And Vomiting Physical examination: VITAL SIGNS: 98.9, 100, 15, 109/64, 97% on the vent GENERAL: Laying in bed, intubated EYES: Pupils equal. Conjunctiva normal. HEENT: External appearance of nose and ears normal, endotracheal tube in place. NECK: JVD unable to assess; masses not palpable. HEART: First and second heart sounds are normal; no edema. LUNGS: Respiratory rate increased, diminished breath sounds. ABDOMEN: Soft, nontender, liver spleen not palpable, no masses palpable. PSYCH: Sedated, unable to assess MUSCULOSKELETAL: Dressing over the left ankle INVESTIGATIONS, reviewed in the clinical context: White count 9.7 hemoglobin 9.5 potassium 4.4 creatinine 0.95 Wound culture fluids growing MSSA Previous testing: . White count 14.5 hemoglobin 13.7 potassium 4.7 1:15 creatinine 1.03 Left foot and ankle x-ray-shows soft tissue swelling around the foot and the ankle Joint fluid: RBC 5400, polynuclear WBC 89, nucleated cells 93,000 Assessment: -Left ankle septic arthritis. Arthrocentesis did reveal pus. Status post I&D with a [place] drain line-cultures growing MSSA -Acute hypoxic respiratory failure with ventilator support secondary to sepsis, slow to respond -Sepsis from septic arthritis -Metabolic and lactic acidosis. -Diabetes mellitus type 2 -Obesity BMI 36.6 -Essential hypertension -Hyperlipidemia Plan: Patient is on IV Ancef. Also on propofol 2 feeding is started. On ventilator support. Remains critically ill. Follow with software development specialist and 90.
[2018-11-17] MEDS: INSULIN REGULAR 100 UNIT in SODIUM CHLORIDE 0.9% 100 ML IV SCH (20:57)
[2018-11-17 22:09] LABS: Glucose,Whole Blood 132 mg/dL (75-99)
[2018-11-17 23:08] LABS: Glucose,Whole Blood 139 mg/dL (75-99)
[2018-11-17] MEDS: ENOXAPARIN 40 MG/0.4 ML SYRINGE SQ SCH (23:43)
[2018-11-18 00:04] LABS: Glucose,Whole Blood 160 mg/dL (75-99)
[2018-11-18 00:58] LABS: Glucose,Whole Blood 175 mg/dL (75-99)
[2018-11-18 02:01] LABS: Glucose,Whole Blood 163 mg/dL (75-99)
[2018-11-18] MEDS: IPRATROPIUM-ALBUTEROL 3 ML NEB INHALATION SCH ×6 (02:58→19:05)
[2018-11-18 03:11] LABS: Glucose,Whole Blood 175 mg/dL (75-99)
[2018-11-18 04:07] LABS: ABG Base Excess 0.9 mmol/L; ABG HCO3 25 mmol/L (21-25); ABG Oxygen Saturation 96.1 % (94-97); ABG PCO2 37 mmHg (35-45); ABG PH 7.44 (7.35-7.45); ABG PO2 78 mmHg (83-108); ABG TCO2 26 mmol/L (19-24)
[2018-11-18 04:38] LABS: Allen Test Performed? no
[2018-11-18 04:59] LABS: Glucose,Whole Blood 185 mg/dL (75-99)
[2018-11-18 05:05] LABS: Glucose,Whole Blood 169 mg/dL (75-99)
[2018-11-18 05:09] LABS: Basophils % (A) 0 %; Eosinophils # (A) 0.3 k/uL (0-0.7); Eosinophils % (A) 5 %; HCT 27.6 % (34.0-46.0); HGB 9.4 gm/dL (11.4-16.0); Lymphocytes # (A) 1.6 k/uL (1.0-4.8); Lymphocytes % (A) 24 %; MCH 32.6 pg (25.0-35.0); MCHC 33.9 g/dL (31.0-37.0); MCV 96.1 fL (80.0-100.0); Mean Platelet Volume 7.8; Monocytes # (A) 0.4 k/uL (0-1.0); Monocytes % (A) 6 %; Neutrophils # (A) 4.1 k/uL (1.3-7.7); Neutrophils % (A) 63 %; Platelet Count 239 k/uL (150-450); RBC 2.87 m/uL (3.80-5.40); RDW 13.8 % (11.5-15.5); WBC 6.5 k/uL (3.8-10.6)
[2018-11-18] MEDS: PROPOFOL 1,000 MG in EMPTY BAG 1 BAG IV SCH ×2 (05:17→08:34)
[2018-11-18] MEDS: NOREPINEPHRINE 4 MG in SODIUM CHLORIDE 0.9% 250 ML IV SCH (05:39)
[2018-11-18 06:10] LABS: Glucose,Whole Blood 184 mg/dL (75-99)
[2018-11-18 06:53] LABS: Glucose,Whole Blood 179 mg/dL (75-99)
--- NOTE | 2018-11-18 06:59 | PCN ---
PROCEDURE NOTE ARTERIAL LINE PLACEMENT: Indications: Hemodynamic monitoring. A time-out was completed verifying correct patient, procedure, site, positioning, and implant(s) or special equipment if applicable. Gunner's test was performed to ensure adequate perfusion. The patient's right wrist was prepped and draped in sterile fashion. 1% Lidocaine was used to anesthetize the area. An 18G [place] arterial line was introduced into the right radial artery. The catheter was threaded over the guide wire and the needle was removed with appropriate pulsatile blood return. Blood loss was minimal. The catheter was then sutured in place to the skin and a sterile dressing applied. Perfusion to the extremity distal to the point of catheter insertion was checked and found to be adequate. The patient tolerated the procedure well and there were no complications. PROCEDURE: Right radial arterial line placement. PREOPERATIVE DIAGNOSIS: Acute hypoxemic respiratory failure requiring ventilator support. POSTOPERATIVE DIAGNOSIS: Acute hypoxemic respiratory failure requiring ventilator support. Patient tolerated the procedure well. No immediate complications. Good waveform noted, line was flushed, sutured in place and sterile dressing was applied. MMODL / IJN: [id number] /
[2018-11-18 07:40] LABS: Calcium 8.1 mg/dL (8.4-10.2); Potassium 3.8 mmol/L (3.5-5.1)
[2018-11-18] MEDS ORDERED: Potassium Replacement Protocol 1 EACH MISC MISCELLANE PRN (07:49)
[2018-11-18] MEDS ORDERED: POTASSIUM BICARBONATE/CIT AC 20 MEQ TABLET.EFF NG-TUBE SCH (08:00)
--- NOTE | 2018-11-18 08:24 | XR ---
EXAMINATION TYPE: XR chest 1V portable DATE OF EXAM: 11/18/2018 COMPARISON: 11/17/2018 HISTORY: SOB, Follow Up FINDINGS: Indwelling tubes and catheters are unchanged. There is pulmonary venous congestion with basilar infiltrates and/or effusions with improved aeration right lung base. Stable appearance of the cardio-mediastinal structures at this time. IMPRESSION: 1. There is pulmonary venous congestion with basilar infiltrates and/or effusions with improved aera tion right lung base.
[2018-11-18] MEDS: CLOPIDOGREL 75 MG TAB PO SCH (08:34)
[2018-11-18] MEDS: CHLORHEXIDINE GLUCONATE 15 ML CUP MUCOUS MEM SCH (08:34)
[2018-11-18] MEDS: ASPIRIN 81 MG PO SCH (08:34)
[2018-11-18 09:02] LABS: Glucose,Whole Blood 208 mg/dL (75-99)
[2018-11-18] MEDS: FUROSEMIDE 10 MG/ML 4 ML VIAL IV SCH (09:27)
[2018-11-18 10:14] LABS: Glucose,Whole Blood 234 mg/dL (75-99)
--- NOTE | 2018-11-18 10:21 | P.PN ---
Subjective Progress Note Date: 11/18/18 Principal diagnosis: Left lateral ankle subcutaneous infection. Respiratory failure This is a 68-year-old female who was taken to surgery on 11/15/2018 for possible septic arthritis of the left ankle. There was a soft tissue abscess found. There was no communication with the joint noted at the time of surgery. The area was debrided and Ave drain was placed. Postoperatively she developed some difficulty breathing and shortness of breath. She was transferred to the intensive care unit. She is currently being treated for sepsis. She is on a ventilator at this time. According to nursing staff they may attempt extubation today. Objective - Vital Signs Vital signs: Vital Signs Temp 100.4 F H 11/18/18 08:00 Pulse 100 11/18/18 10:00 Resp 26 H 11/18/18 10:00 BP 129/69 11/18/18 06:30 Pulse Ox 100 11/18/18 10:00 Intake & Output 11/17/18 11/18/18 11/18/18 18:59 06:59 18:59 Intake Total 453.583 4262.948 412.043 Output Total 3905 1025 975 Balance -2914.834 19.948 -562.957 Weight 106.5 kg 97.6 kg Intake: IV 565 343 178 Cefepime 2 gm In Sodium 100 100 Chloride 0.9% 100 ml @ 200 mls/hr IVPB Q12HR [facility] Rx#:[id number] Normal Saline Pressure 45 78 18 Bag Sodium Chloride 0.9% 1, 295 265 60 000 ml @ 10 mls/hr IV . Q24H [facility] Rx#:[id number] Vancomycin 1,500 mg In 125 Sodium Chloride 0.9% 250 ml @ 125 mls/hr IVPB Q16H [facility] Rx#:[id number] Intake, IV Titration 295.166 281.948 48.043 Amount Insulin Regular 100 unit 17.474 19.057 5.685 In Sodium Chloride 0.9% 100 ml @ Per Protocol IV .Q0M [facility] Rx#:[id number] Propofol 1,000 mg In 277.692 212.891 42.358 Empty Bag 1 bag @ Titrate IV .Q0M [facility] Rx#: [id number] ceFAZolin 2 gm In Sodium 50 Chloride 0.9% 50 ml @ 100 mls/hr IVPB Q8HR [facility] Rx# :[id number] Tube Feeding 70 330 96 Other 60 90 90 Output: Urine 3905 1025 975 Other: Voiding Method Indwelling Catheter Indwelling Catheter Indwelling Catheter ABP, PAP, CO, CI - Last Documented Arterial Blood Pressure 147/74 - Exam This is a 68-year-old female in the intensive care unit on a ventilator. Exam of the lateral incision reveals mild to moderate drainage on the dressing. There is no active drainage at this time. Erythema is improved. Pedal pulse is +1/4. Capillary refill is less than 3 seconds. - Labs CBC & Chem 7: 11/18/18 04:55 11/18/18 04:55 Labs: Abnormal Lab Results - Last 24 Hours (Table) 11/17/18 11/17/18 11/17/18 Range/Units 10:57 12:20 12:55 RBC (3.80-5.40) m/uL Hgb (11.4-16.0) gm/dL Hct (34.0-46.0) % ABG pO2 (83-108) mmHg ABG Total CO2 (19-24) mmol/L Chloride (98-107) mmol/L BUN (7-17) mg/dL Glucose (74-99) mg/dL POC Glucose (mg/dL) 205 H 180 H 184 H (75-99) mg/dL Calcium (8.4-10.2) mg/dL 11/17/18 11/17/18 11/17/18 Range/Units 14:26 15:50 17:05 RBC (3.80-5.40) m/uL Hgb (11.4-16.0) gm/dL Hct (34.0-46.0) % ABG pO2 (83-108) mmHg ABG Total CO2 (19-24) mmol/L Chloride (98-107) mmol/L BUN (7-17) mg/dL Glucose (74-99) mg/dL POC Glucose (mg/dL) 130 H 169 H 177 H (75-99) mg/dL Calcium (8.4-10.2) mg/dL 11/17/18 11/17/18 11/17/18 Range/Units 19:02 19:51 22:08 RBC (3.80-5.40) m/uL Hgb (11.4-16.0) gm/dL Hct (34.0-46.0) % ABG pO2 (83-108) mmHg ABG Total CO2 (19-24) mmol/L Chloride (98-107) mmol/L BUN (7-17) mg/dL Glucose (74-99) mg/dL POC Glucose (mg/dL) 161 H 151 H 132 H (75-99) mg/dL Calcium (8.4-10.2) mg/dL 11/17/18 11/18/18 11/18/18 Range/Units 23:07 00:03 00:57 RBC (3.80-5.40) m/uL Hgb (11.4-16.0) gm/dL Hct (34.0-46.0) % ABG pO2 (83-108) mmHg ABG Total CO2 (19-24) mmol/L Chloride (98-107) mmol/L BUN (7-17) mg/dL Glucose (74-99) mg/dL POC Glucose (mg/dL) 139 H 160 H 175 H (75-99) mg/dL Calcium (8.4-10.2) mg/dL 11/18/18 11/18/18 11/18/18 Range/Units 02:00 03:09 04:07 RBC (3.80-5.40) m/uL Hgb (11.4-16.0) gm/dL Hct (34.0-46.0) % ABG pO2 78 L (83-108) mmHg ABG Total CO2 26 H (19-24) mmol/L Chloride (98-107) mmol/L BUN (7-17) mg/dL Glucose (74-99) mg/dL POC Glucose (mg/dL) 163 H 175 H (75-99) mg/dL Calcium (8.4-10.2) mg/dL 11/18/18 11/18/18 11/18/18 Range/Units 04:55 04:55 04:57 RBC 2.87 L (3.80-5.40) m/uL Hgb 9.4 L (11.4-16.0) gm/dL Hct 27.6 L (34.0-46.0) % ABG pO2 (83-108) mmHg ABG Total CO2 (19-24) mmol/L Chloride 111 H (98-107) mmol/L BUN 24 H (7-17) mg/dL Glucose 179 H (74-99) mg/dL POC Glucose (mg/dL) 185 H (75-99) mg/dL Calcium 8.1 L (8.4-10.2) mg/dL 11/18/18 11/18/18 11/18/18 Range/Units 05:03 05:57 06:51 RBC (3.80-5.40) m/uL Hgb (11.4-16.0) gm/dL Hct (34.0-46.0) % ABG pO2 (83-108) mmHg ABG Total CO2 (19-24) mmol/L Chloride (98-107) mmol/L BUN (7-17) mg/dL Glucose (74-99) mg/dL POC Glucose (mg/dL) 169 H 184 H 179 H (75-99) mg/dL Calcium (8.4-10.2) mg/dL 11/18/18 11/18/18 Range/Units 09:00 10:13 RBC (3.80-5.40) m/uL Hgb (11.4-16.0) gm/dL Hct (34.0-46.0) % ABG pO2 (83-108) mmHg ABG Total CO2 (19-24) mmol/L Chloride (98-107) mmol/L BUN (7-17) mg/dL Glucose (74-99) mg/dL POC Glucose (mg/dL) 208 H 234 H (75-99) mg/dL Calcium (8.4-10.2) mg/dL Microbiology - Last 24 Hours (Table) 11/15/18 14:26 Anaerobic Culture - Preliminary Ankle - Left 11/15/18 14:26 Anaerobic Culture - Preliminary Ankle - Left 11/15/18 16:54 Blood Culture - Preliminary Blood No Growth after 48 hours 11/15/18 14:26 Gram Stain - Preliminary Ankle - Left Wound Culture - Preliminary Presumptive Staph aureus 11/15/18 14:26 Gram Stain - Preliminary Ankle - Left Wound Culture - Preliminary Presumptive Staph aureus 11/16/18 08:45 Blood Culture - Preliminary Blood No Growth after 24 hours 11/16/18 08:40 Blood Culture - Preliminary Blood No Growth after 24 hours 11/15/18 10:30 Gram Stain - Final Aspirate Body Fluid Culture - Final Staphylococcus aureus Assessment and Plan (1) Septic arthritis of left ankle Current Visit: Yes Status: Acute Code(s): M00.9 - PYOGENIC ARTHRITIS, UNSPECIFIED SNOMED Code(s): 7519498628453992 (2) Cellulitis of left lower extremity Current Visit: Yes Status: Acute Code(s): L03.116 - CELLULITIS OF LEFT LOWER LIMB SNOMED Code(s): 927354197 Plan: The clinical findings are discussed with the nursing staff. Dressing has been changed today. Dressing may be changed daily. We will continue to follow.
[2018-11-18 11:12] LABS: Glucose,Whole Blood 225 mg/dL (75-99)
[2018-11-18] MEDS: HYDROmorphone 1 MG/ML 1 ML SYRINGE IVP PRN ×2 (11:12→19:50)
[2018-11-18 12:07] LABS: Glucose,Whole Blood 206 mg/dL (75-99)
[2018-11-18 13:09] LABS: Glucose,Whole Blood 205 mg/dL (75-99)
[2018-11-18] MEDS ORDERED: POTASSIUM CHLORIDE 20 MEQ in WATER FOR INJECTION 1 100ML.BAG IVPB STA (13:12)
--- NOTE | 2018-11-18 13:24 | P.PN ---
Subjective Progress Note Date: 11/18/18 On 11/16/2018 I'm seeing this patient for a follow-up. The patient was ordered to seen earlier this morning by my partner. In any rate, the patient is currently intubated on a mechanical ventilator. She is an assist-control mode at a rate of 26 with a tidal volume of 400 and FiO2 of 50% with a PEEP of 5. She was having significant amount of air leak and this was in the order of 150 mL and this was adjusted at the bedside. Chest x-ray was reviewed and shows lower lobe active pulmonary infiltrates. Not get was reviewed. The patient is currently afebrile. The left ankle wound was checked. There is a drain within the joint which is not putting much of output. She is on a combination of cefe pime and vancomycin. The patient is on propofol at 50 mics. No pressors for now. She is going to complete the third liter of bolus. She is producing urine output. Blood work will be reviewed and the repeated. She is having elevated blood sugar. Insulin drip will be started all of the events that occurred yesterday were noted On 11/17/2018 patient seen in follow-up in the intensive care unit, she she remains intubated, on mechanical ventilator, current vent settings are assist- control mode of ventilation with a rate of 26, tidal vital 400, FiO2 of 40% and PEEP of 5. This morning's blood gas has been reviewed, showing pO2 of 112, pCO2 of 33, pH of 7.39, this was done on FiO2 of 50%.'s morning's chest x-ray has been reviewed, showing slightly worsening fluid overload with increasing small right pleural effusion and stable left pleural effusion and patient was given a dose of IV Lasix. Her dynamically remains stable, not requiring any vasopressor support at this time, IV fluids have been decreased down to keep open, Diprivan and is currently at 40 mics per kilo per minute. Plan infusion is at 4 units per hour. Antibiotic coverage in the form of cefepime and vancomycin, micr obiology showing Staphylococcus aureus in the left ankle aspirate, blood cultures were negative. Sputum culture showed no growth. His labs have been reviewed, showing white blood cell count of 9.7, hemoglobin of 9.5, serum sodium of 140, potassium is 4.4, chloride is 113, CO2 is 20, BUN of 20, creatinine 0.95. Orthopedic surgeries following, and the day remove the Ave drain from the left ankle to is draining minimal amount of sanguinous drainage. Afebrile, tachycardic, with a heart rate between 95-103 BPM. On 11/18/2018, patient is being seen in follow-up in intensive care unit. Margaret ains intubated on a mechanical ventilator. Chest x-ray showing some cardiomegaly and pulmonary vascular congestion. She'll stop propofol designing a 50 mics and she was started enterofeeding. She'll support. No fever. No chills. Hemodynamic is stable. Given a dose of Lasix yesterday with excellent urine output and fluid balance of -2.8 L since the patient was given diuretics. The patient is calm and comfortable Emily patient is hemodynamically stable. The cultures on the left ankle grew MSSA and the patient is currently on IV Kefzol. The patient tolerating her tube feeds. Brother significant events overnight. No significant leukocytosis. The called up on 6.5. Blood gas from today showed a pH of 7.44 with a pCO2 of 37 and pO2 of 78 and this was on the frontal 50% with a tidal volume of 426 and a PEEP of 5. The patient is in a sinus rhythm. No other significant events otherwise over the past 24 hours. ID is on the case. Antibiotics has been switched from cefepime and vancomycin and was simplified to IV Kefzol. Objective - Vital Signs Vital signs: Vital Signs Temp 100 F H 11/18/18 12:00 Pulse 105 H 11/18/18 13:00 Resp 26 H 11/18/18 13:00 BP 129/69 11/18/18 06:30 Pulse Ox 97 11/18/18 13:00 Intake & Output 11/17/18 11/18/18 11/18/18 18:59 06:59 18:59 Intake Total 636.215 4388.948 711.307 Output Total 3905 1025 2275 Balance -2914.834 19.948 -1563.693 Weight 106.5 kg 97.6 kg Intake: IV 565 343 256 Cefepime 2 gm In Sodium 100 100 Chloride 0.9% 100 ml @ 200 mls/hr IVPB Q12HR [facility] Rx#:[id number] Normal Saline Pressure 45 78 36 Bag Sodium Chloride 0.9% 1, 295 265 120 000 ml @ 10 mls/hr IV . Q24H [facility] Rx#:[id number] Vancomycin 1,500 mg In 125 Sodium Chloride 0.9% 250 ml @ 125 mls/hr IVPB Q16H [facility] Rx#:[id number] Intake, IV Titration 295.166 281.948 143.307 Amount Insulin Regular 100 unit 17.474 19.057 20.331 In Sodium Chloride 0.9% 100 ml @ Per Protocol IV .Q0M [facility] Rx#:[id number] Propofol 1,000 mg In 277.692 212.891 122.976 Empty Bag 1 bag @ Titrate IV .Q0M [facility] Rx#: [id number] ceFAZolin 2 gm In Sodium 50 Chloride 0.9% 50 ml @ 100 mls/hr IVPB Q8HR [facility] Rx# :[id number] Tube Feeding 70 330 192 Other 60 90 120 Output: Urine 3905 1025 2275 Other: Voiding Method Indwelling Catheter Indwelling Catheter Indwelling Catheter ABP, PAP, CO, CI - Last Documented Arterial Blood Pressure 172/83 - Exam GENERAL EXAM: Obese, 68-year-old white female, intubated, sedated on mechanical ventilator comfortable in no apparent distress. HEAD: Normocephalic/atraumatic. EYES: Normal reaction of pupils, equal size. Conjunctiva pink, sclera white. NOSE: Clear with pink turbinates. THROAT: No erythema or exudates. NECK: No masses, no JVD, no thyroid enlargement, no adenopathy. CHEST: No chest wall deformity. Symmetrical expansion. LUNGS: Equal air entry with no crackles, wheeze, rhonchi or dullness. CVS: Regular rate and rhythm, normal S1 and S2, no gallops, no murmurs, no rubs ABDOMEN: Soft, nontender. No hepatosplenomegaly, normal bowel sounds, no guarding or rigidity. EXTREMITIES: No clubbing, left lower extremity edema, with a slight warmth in the left ankle joint, left ankle joint incision clean dry and intact, [place] drain has been removed small amount of sanguinous drainage on the dressing., no cyanosis, 2+ pulses and upper and lower extremities. MUSCULOSKELETAL: Muscle strength and tone normal. SPINE: No scoliosis or deformity SKIN: No rashes CENTRAL NERVOUS SYSTEM: Intubated, sedated. No focal deficits, tone is normal in all 4 extremities. - Labs CBC & Chem 7: 11/18/18 04:55 11/18/18 12:10 Labs: Abnormal Lab Results - Last 24 Hours (Table) 11/17/18 11/17/18 11/17/18 Range/Units 14:26 15:50 17:05 RBC (3.80-5.40) m/uL Hgb (11.4-16.0) gm/dL Hct (34.0-46.0) % ABG pO2 (83-108) mmHg ABG Total CO2 (19-24) mmol/L Chloride (98-107) mmol/L BUN (7-17) mg/dL Glucose (74-99) mg/dL POC Glucose (mg/dL) 130 H 169 H 177 H (75-99) mg/dL Calcium (8.4-10.2) mg/dL 11/17/18 11/17/18 11/17/18 Range/Units 19:02 19:51 22:08 RBC (3.80-5.40) m/uL Hgb (11.4-16.0) gm/dL Hct (34.0-46.0) % ABG pO2 (83-108) mmHg ABG Total CO2 (19-24) mmol/L Chloride (98-107) mmol/L BUN (7-17) mg/dL Glucose (74-99) mg/dL POC Glucose (mg/dL) 161 H 151 H 132 H (75-99) mg/dL Calcium (8.4-10.2) mg/dL 11/17/18 11/18/18 11/18/18 Range/Units 23:07 00:03 00:57 RBC (3.80-5.40) m/uL Hgb (11.4-16.0) gm/dL Hct (34.0-46.0) % ABG pO2 (83-108) mmHg ABG Total CO2 (19-24) mmol/L Chloride (98-107) mmol/L BUN (7-17) mg/dL Glucose (74-99) mg/dL POC Glucose (mg/dL) 139 H 160 H 175 H (75-99) mg/dL Calcium (8.4-10.2) mg/dL 11/18/18 11/18/18 11/18/18 Range/Units 02:00 03:09 04:07 RBC (3.80-5.40) m/uL Hgb (11.4-16.0) gm/dL Hct (34.0-46.0) % ABG pO2 78 L (83-108) mmHg ABG Total CO2 26 H (19-24) mmol/L Chloride (98-107) mmol/L BUN (7-17) mg/dL Glucose (74-99) mg/dL POC Glucose (mg/dL) 163 H 175 H (75-99) mg/dL Calcium (8.4-10.2) mg/dL 11/18/18 11/18/18 11/18/18 Range/Units 04:55 04:55 04:57 RBC 2.87 L (3.80-5.40) m/uL Hgb 9.4 L (11.4-16.0) gm/dL Hct 27.6 L (34.0-46.0) % ABG pO2 (83-108) mmHg ABG Total CO2 (19-24) mmol/L Chloride 111 H (98-107) mmol/L BUN 24 H (7-17) mg/dL Glucose 179 H (74-99) mg/dL POC Glucose (mg/dL) 185 H (75-99) mg/dL Calcium 8.1 L (8.4-10.2) mg/dL 11/18/18 11/18/18 11/18/18 Range/Units 05:03 05:57 06:51 RBC (3.80-5.40) m/uL Hgb (11.4-16.0) gm/dL Hct (34.0-46.0) % ABG pO2 (83-108) mmHg ABG Total CO2 (19-24) mmol/L Chloride (98-107) mmol/L BUN (7-17) mg/dL Glucose (74-99) mg/dL POC Glucose (mg/dL) 169 H 184 H 179 H (75-99) mg/dL Calcium (8.4-10.2) mg/dL 11/18/18 11/18/18 11/18/18 Range/Units 09:00 10:13 11:10 RBC (3.80-5.40) m/uL Hgb (11.4-16.0) gm/dL Hct (34.0-46.0) % ABG pO2 (83-108) mmHg ABG Total CO2 (19-24) mmol/L Chloride (98-107) mmol/L BUN (7-17) mg/dL Glucose (74-99) mg/dL POC Glucose (mg/dL) 208 H 234 H 225 H (75-99) mg/dL Calcium (8.4-10.2) mg/dL 11/18/18 11/18/18 Range/Units 12:06 13:07 RBC (3.80-5.40) m/uL Hgb (11.4-16.0) gm/dL Hct (34.0-46.0) % ABG pO2 (83-108) mmHg ABG Total CO2 (19-24) mmol/L Chloride (98-107) mmol/L BUN (7-17) mg/dL Glucose (74-99) mg/dL POC Glucose (mg/dL) 206 H 205 H (75-99) mg/dL Calcium (8.4-10.2) mg/dL Microbiology - Last 24 Hours (Table) 11/16/18 04:13 Gram Stain - Final Sputum Sputum Culture - Final 11/15/18 14:26 Anaerobic Culture - Preliminary Ankle - Left 11/15/18 14:26 Gram Stain - Preliminary Ankle - Left Wound Culture - Preliminary Presumptive Staph aureus 11/15/18 14:26 Anaerobic Culture - Preliminary Ankle - Left 11/15/18 14:26 Gram Stain - Preliminary Ankle - Left Wound Culture - Preliminary Presumptive Staph aureus 11/16/18 08:45 Blood Culture - Preliminary Blood No Growth after 48 hours 11/16/18 08:40 Blood Culture - Preliminary Blood No Growth after 48 hours 11/15/18 16:54 Blood Culture - Preliminary Blood No Growth after 48 hours 11/15/18 10:30 Gram Stain - Final Aspirate Body Fluid Culture - Final Staphylococcus aureus Assessment and Plan Plan: 1 acute hypoxic respiratory failure probably related to metabolic acidosis an underlying sepsis. The patient remains intubated on a mechanical ventilator. Chest excisional colovesicular congestion and edema and the patient was started on diuretics. Oxygen is adequate on the 50% FiO2 and a PEEP of 5. Chest x-ray was normal. Blood gas was noted. 2 left ankle septic arthritis, post incision and drainage, aspirate cultures positive for Staphylococcus aureus, the patient has MSSA in the patient's Card izem IV Kefzol 3 metabolic acidosis/lactic acidosis, recovered 4 hypotension, improved, hemodynamically stable at this point 5 diabetes mellitus with elevated blood sugar 6 hyperlipidemia 7 hypertension 8 acute kidney injury 9 acute hyperkalemia likely secondary to acute kidney injury and metabolic acidosis. This is accompanied in the potassium level was also normalized. 10 mild fluid overload, with the chest x-ray showing small bilateral pleural effusions and pulmonary vascular congestion Plan I would like to start the patient on daily diuretics. The patient was given 40 mg IV Lasix right now I would like to monitor the urine output and decide if further diuretics as needed. Continue IV Kefzol. Monitor hemodynamics. Sedation holiday. Assessment he parameters and there is a little make further decisions the patient is candidate for further weaning and possible extubation. Continue enteral feeding for nutritional support. Continue antibiotic coverage. Continue insulin for blood sugar control. The patient will be considered for possible extubation today the patient doesn't have adequate weaning parameters and thus the weaning parameters are adequate and she shows adequate mentation. Continue diuresis. Continue antibiotics. Continue GI prophylaxis. We'll cont inue to follow. The significant evaluation was on a more than 30 minutes. Time with Patient: Greater than 30
--- NOTE | 2018-11-18 13:33 | CDI ---
Documentation Clarification Form Date: 11/18/2018 1:23:19 PM From: Catherine Husain CCS, CCDS Admit Date: 11/16/2018 2:15:00 AM Patient Name: Carole Farah Visit Number: [id number] Discharge Date: ATTENTION: The Clinical Documentation Specialists (CDI) and [facility] Coding Staff appreciate your assistance in clarifying documentation. Please respond to the clarification below the line at the bottom and electronically sign. The CDI & [facility] Coding staff will review the response and follow-up if needed. Please note: Queries are made part of the Legal Health Record. If you have any questions, please contact the author of this message via ITS. Dr. Oscar Medina: Patient presented to the ED with left lower leg & ankle pain & swelling. Diagnosed with septic arthritis of same. Patient had a left ankle deep abscess I&D on 11/15 w/closure of wound & placement of Ave drain. On 11/16, patient developed acute hypoxic respiratory failure & became severely septic, to ICU, intubated 11/16. Patient history/risk factors: Hypertension, IDDM II, Hyperlipidemia. Clinical Indicators: Presentation as above, remains in ICU on vent >24 hrs. Admission VS: T 98.4, P 107^, R 20, BP 153/81, PO 97 RA 11/16 VS: T 97.4*, P 110^, R 20-26^ (SOB, labored, agonal, shallow, gasping), BP 166/122, PO 94 4Lnc, then intubated. Treatment: INH Albuterol, IV Solumedrol, IV Propofol, IV fluid bolus x2, Insulin sq, IV Insulin, IV Nimbex, IV Vancomycyn, IV NaBicarb, IV Dextrose/Water In your professional opinion, can you please specify if the patient is also being treated for shock & specify the type if known: Shock ruled out Shock ruled in: o Septic Shock Suspected or known causative organism Any associated organ failure o Hypovolemic Shock Cause Other, please specify Unable to determine (Last Revision: December 2016) Septic shock from septic arthritis from MSSA MTDD
[2018-11-18] MEDS ORDERED: ACETAMINOPHEN IV (For NPO) 1,000 MG in EMPTY BAG 1 BAG IVPB STA (13:40)
[2018-11-18 13:56] LABS: ABG Base Excess 5.4 mmol/L; ABG HCO3 30 mmol/L (21-25); ABG PCO2 44 mmHg (35-45); ABG PH 7.44 (7.35-7.45); ABG PO2 89 mmHg (83-108); ABG TCO2 31 mmol/L (19-24)
[2018-11-18 13:59] LABS: Allen Test Performed? no
[2018-11-18 15:36] LABS: Glucose,Whole Blood 126 mg/dL (75-99)
--- NOTE | 2018-11-18 16:03 | PN ---
PROGRESS NOTE DATE OF SERVICE: 11/18/2018. REASON FOR FOLLOWUP: Left ankle MSSA abscess and cellulitis. INTERVAL HISTORY: The patient was seen on rounds this morning. The patient did have a low-grade fever of 100.4. The patient was undergoing a breathing trial with plan for possible extubation this afternoon. The patient was on the vent and unable to provide any history. She has been tolerating her tube feeds. No diarrhea has been reported by the nursing staff. Not on any pressor support. PHYSICAL EXAMINATION: Blood pressure 172/83 with a pulse of 105, temperature of 100.4. She is 97% on 50% FiO2. General description is an elderly female, intubated on the vent. RESPIRATORY SYSTEM: Unlabored breathing. Clear to auscultation anteriorly. HEART: S1, S2. Regular rate and rhythm. ABDOMEN: Soft. No tenderness. Left ankle is currently wrapped up. No obvious drainage on the dressing. LABS: Hemoglobin 9.4, white count 6.5. BUN of 24, creatinine 0.98. Blood culture has been negative. Sputum has been negative. The left ankle as per culture positive for MSSA. DIAGNOSTIC IMPRESSION AND PLAN: Patient with methicillin-susceptible Staphylococcus aeruginosa left ankle abscess and cellulitis, status post surgical drainage. The patient is currently covered with cefazolin 2 grams q.8 hours; to continue for now. She did have a low-grade fever that we will monitor closely. However, white count is normal and the rest of the cultures have been negative. Continue with supportive care. MMODL / IJN: [id number] /
[2018-11-18] MEDS: SODIUM CHLORIDE 0.9% 1,000 ML IV SCH (16:24)
[2018-11-18 17:06] LABS: Glucose,Whole Blood 158 mg/dL (75-99)
[2018-11-18 19:04] LABS: Glucose,Whole Blood 174 mg/dL (75-99)
[2018-11-18 20:01] LABS: Glucose,Whole Blood 180 mg/dL (75-99)
[2018-11-18 20:54] LABS: Glucose,Whole Blood 177 mg/dL (75-99)
[2018-11-18 22:12] LABS: Glucose,Whole Blood 145 mg/dL (75-99)
--- NOTE | 2018-11-18 22:25 | P.PN ---
Progress Note - Text Progress Note Date: 11/18/18 Chief Complaint: Left ankle pain Interval history: This is a pleasant 68-year-old patient of Dr. Maddox. Chronic stable medical conditions include diabetes, hypertension, hyperlipidemia,. Patient complains of pain in his left ankle for quite some time. Seems to progressively gotten worse. This pain and swelling. Denies any fever and chills. Denies any injury. Patient the best of historians. Admitted for the same. No fever no chills. Pain is localized to the left ankle and worse with activity. Finds it difficult to weight-bear. Better with rest. On November 15, arthrocentesis was done of the left ankle. Pus was obtained. Later patient was taken down to the OR for further drainage. Because of metabolic acidosis and sepsis patient went into respiratory distress and was intubated Today-. Remains in ICU. Intubated. FiO2 50%. PEEP of 5. 2 feeding at 32 mL an hour. Drips include insulin, propofol,. Telemetry shows sinus rhythm. Review of systems: Cannot be done as patient is intubated Active Medications Albuterol/Ipratropium (Duoneb 0.5 Mg-3 Mg/3 Ml Soln) 3 ml INHALATION RT-Q2H PRN PRN Reason: Shortness Of Breath Or Wheezing Albuterol/Ipratropium (Duoneb 0.5 Mg-3 Mg/3 Ml Soln) 3 ml INHALATION RT-QID [facility] Last Admin: 11/18/18 19:05 Dose: 3 ml Documented by: Aspirin (Aspirin) 81 mg PO DAILY [facility] Last Admin: 11/18/18 08:34 Dose: 81 mg Documented by: Clopidogrel Bisulfate (Plavix) 75 mg PO DAILY [facility] Last Admin: 11/18/18 08:34 Dose: 75 mg Documented by: Enoxaparin Sodium (Lovenox) 40 mg SQ Q24H [facility] Last Admin: 11/17/18 23:43 Dose: 40 mg Documented by: Furosemide (Lasix) 40 mg IV DAILY [facility] Last Admin: 11/18/18 09:27 Dose: 40 mg Documented by: Hydromorphone HCl (Dilaudid) 1 mg IVP Q4HR PRN PRN Reason: Pain Last Admin: 11/18/18 19:50 Dose: 1 mg Documented by: Sodium Chloride (Saline 0.9%) 1,000 mls @ 10 mls/hr IV .Q24H [facility] Last Admin: 11/18/18 16:24 Dose: 10 mls/hr Documented by: Insulin Human Regular 100 unit (/ Sodium Chloride) 101 mls @ 0 mls/hr IV .Q0M [facility]; Protocol Last Titration: 11/18/18 22:11 Dose: 2.5 units/hr, 2.525 mls/hr Documented by: Norepinephrine Bitartrate 4 mg (/ Sodium Chloride) 254 mls @ 17.282 mls/hr IV .[id number] [facility]; Protocol Last Admin: 11/18/18 05:39 Dose: Not Given Documented by: Cefazolin Sodium 2 gm/ Sodium (Chloride) 50 mls @ 100 mls/hr IVPB Q8HR [facility] Last Admin: 11/18/18 16:24 Dose: 100 mls/hr Documented by: Miscellaneous Information (Potassium Per Protocol) 1 each MISCELLANE DAILY PRN; Protocol PRN Reason: Per Protocol Naloxone HCl (Narcan) 0.2 mg IV Q2M PRN PRN Reason: Opioid Reversal Ondansetron HCl (Zofran) 4 mg IVP Q8HR PRN PRN Reason: Nausea And Vomiting Physical examination: VITAL SIGNS: 99.2, 92, 16, 148/76, 98% on ventilator GENERAL: Laying in bed, intubated EYES: Pupils equal. Conjunctiva normal. HEENT: External appearance of nose and ears normal, endotracheal tube in place. NECK: JVD unable to assess; masses not palpable. HEART: First and second heart sounds are normal; no edema. LUNGS: Respiratory rate increased, diminished breath sounds. ABDOMEN: Soft, nontender, liver spleen not palpable, no masses palpable. PSYCH: Sedated, unable to assess MUSCULOSKELETAL: Dressing over the left ankle INVESTIGATIONS, reviewed in the clinical context: White count 6.5. Bilirubin 9.4 potassium 3.8 creatinine 0.98 Wound culture fluids growing MSSA Previous testing: . White count 14.5 hemoglobin 13.7 potassium 4.7 1:15 creatinine 1.03 Left foot and ankle x-ray-shows soft tissue swelling around the foot and the ankle Joint fluid: RBC 5400, polynuclear WBC 89, nucleated cells 93,000 Assessment: -Left ankle septic arthritis. Arthrocentesis did reveal pus. Status post I&D with a [place] drain line-cultures growing MSSA -Acute hypoxic respiratory failure with ventilator support secondary to sepsis, slow to respond -Sepsis from septic arthritis -Metabolic and lactic acidosis. -Diabetes mellitus type 2 -Obesity BMI 36.6 -Essential hypertension -Hyperlipidemia Plan: Patient is on IV Ancef. Remains on the ventilator. Drips include insulin, propofol. Tube feeding to continue.
[2018-11-18 23:01] LABS: Glucose,Whole Blood 143 mg/dL (75-99)
[2018-11-18] MEDS: ENOXAPARIN 40 MG/0.4 ML SYRINGE SQ SCH (23:05)
[2018-11-19] MEDS ORDERED: FUROSEMIDE 10 MG/ML 4 ML VIAL IV STA (00:21)
[2018-11-19] MEDS: NOREPINEPHRINE 4 MG in SODIUM CHLORIDE 0.9% 250 ML IV SCH ×2 (00:26→10:44)
[2018-11-19 00:57] LABS: Glucose,Whole Blood 139 mg/dL (75-99)
[2018-11-19 02:09] LABS: Glucose,Whole Blood 149 mg/dL (75-99)
[2018-11-19 03:37] LABS: Glucose,Whole Blood 150 mg/dL (75-99)
[2018-11-19 05:07] LABS: Glucose,Whole Blood 163 mg/dL (75-99)
[2018-11-19] MEDS: HYDROmorphone 1 MG/ML 1 ML SYRINGE IVP PRN (05:14)
[2018-11-19 06:26] LABS: Glucose,Whole Blood 155 mg/dL (75-99)
[2018-11-19 06:42] LABS: Basophils # (A) 0.1 k/uL (0-0.2); Basophils % (A) 1 %; Eosinophils # (A) 0.4 k/uL (0-0.7); Eosinophils % (A) 5 %; HCT 33.2 % (34.0-46.0); HGB 10.9 gm/dL (11.4-16.0); Lymphocytes # (A) 1.2 k/uL (1.0-4.8); Lymphocytes % (A) 14 %; MCH 31.2 pg (25.0-35.0); MCHC 32.8 g/dL (31.0-37.0); MCV 95.1 fL (80.0-100.0); Mean Platelet Volume 7.7; Monocytes # (A) 0.4 k/uL (0-1.0); Monocytes % (A) 5 %; Neutrophils % (A) 74 %; Platelet Count 265 k/uL (150-450); RBC 3.49 m/uL (3.80-5.40); WBC 8.2 k/uL (3.8-10.6)
[2018-11-19 06:59] LABS: Calcium 8.7 mg/dL (8.4-10.2); Potassium 4.2 mmol/L (3.5-5.1)
[2018-11-19] MEDS: IPRATROPIUM-ALBUTEROL 3 ML NEB INHALATION SCH ×4 (07:40→20:14)
--- NOTE | 2018-11-19 08:06 | P.PN ---
Subjective Progress Note Date: 11/19/18 Principal diagnosis: Left lateral ankle subcutaneous infection. Respiratory failure This is a 68-year-old female who was taken to surgery on 11/15/2018 for possible septic arthritis of the left ankle. There was a soft tissue abscess found. There was no communication with the joint noted at the time of surgery. The area was debrided and Ave drain was placed. Postoperatively she developed some difficulty breathing and shortness of breath. She was transferred to the intensive care unit. She is currently being treated for sepsis. She is now off the ventilator. She is having some confusion but otherwise doing fairly well. Objective - Vital Signs Vital signs: Vital Signs Temp 98.3 F 11/19/18 07:00 Pulse 96 11/19/18 07:55 Resp 19 11/19/18 07:00 BP 135/80 11/19/18 07:00 Pulse Ox 97 11/19/18 07:41 Intake & Output 11/18/18 11/19/18 11/19/18 18:59 06:59 18:59 Intake Total 945.255 316.447 Output Total 2885 2215 Balance -1939.745 -1898.553 Weight 97.5 kg Intake: IV 477 279 Cefepime 2 gm In Sodium 100 Chloride 0.9% 100 ml @ 200 mls/hr IVPB Q12HR [facility] Rx#:[id number] Normal Saline Pressure 72 39 Bag Potassium Chloride 20 meq 100 In Water For Injection 1 100ml.bag @ 50 mls/hr IVPB ONCE STA Rx#: [id number] Sodium Chloride 0.9% 1, 205 240 000 ml @ 10 mls/hr IV . Q24H [facility] Rx#:[id number] Intake, IV Titration 158.255 37.447 Amount Insulin Regular 100 unit 35.279 37.447 In Sodium Chloride 0.9% 100 ml @ Per Protocol IV .Q0M [facility] Rx#:[id number] Propofol 1,000 mg In 122.976 Empty Bag 1 bag @ Titrate IV .Q0M [facility] Rx#: [id number] Tube Feeding 160 Other 150 Output: Urine 2885 2215 Other: Voiding Method Indwelling Catheter Indwelling Catheter ABP, PAP, CO, CI - Last Documented Arterial Blood Pressure 146/89 - Exam This is a 68-year-old female in the intensive care unit, now extubated. She is sitting up and eating a clear liquid breakfast. Dressing is clean, dry and intact. She has full toe motion without difficulty or pain. Pedal pulse is +1/4. Capillary refill is less than 3 seconds. - Labs CBC & Chem 7: 11/19/18 05:20 11/19/18 05:20 Labs: Abnormal Lab Results - Last 24 Hours (Table) 11/18/18 11/18/18 11/18/18 Range/Units 09:00 10:13 11:10 RBC (3.80-5.40) m/uL Hgb (11.4-16.0) gm/dL Hct (34.0-46.0) % ABG HCO3 (21-25) mmol/L ABG Total CO2 (19-24) mmol/L Carbon Dioxide (22-30) mmol/L BUN (7-17) mg/dL Glucose (74-99) mg/dL POC Glucose (mg/dL) 208 H 234 H 225 H (75-99) mg/dL 11/18/18 11/18/18 11/18/18 Range/Units 12:06 13:07 13:53 RBC (3.80-5.40) m/uL Hgb (11.4-16.0) gm/dL Hct (34.0-46.0) % ABG HCO3 30 H (21-25) mmol/L ABG Total CO2 31 H (19-24) mmol/L Carbon Dioxide (22-30) mmol/L BUN (7-17) mg/dL Glucose (74-99) mg/dL POC Glucose (mg/dL) 206 H 205 H (75-99) mg/dL 11/18/18 11/18/18 11/18/18 Range/Units 15:34 17:05 19:02 RBC (3.80-5.40) m/uL Hgb (11.4-16.0) gm/dL Hct (34.0-46.0) % ABG HCO3 (21-25) mmol/L ABG Total CO2 (19-24) mmol/L Carbon Dioxide (22-30) mmol/L BUN (7-17) mg/dL Glucose (74-99) mg/dL POC Glucose (mg/dL) 126 H 158 H 174 H (75-99) mg/dL 11/18/18 11/18/18 11/18/18 Range/Units 20:00 20:53 22:10 RBC (3.80-5.40) m/uL Hgb (11.4-16.0) gm/dL Hct (34.0-46.0) % ABG HCO3 (21-25) mmol/L ABG Total CO2 (19-24) mmol/L Carbon Dioxide (22-30) mmol/L BUN (7-17) mg/dL Glucose (74-99) mg/dL POC Glucose (mg/dL) 180 H 177 H 145 H (75-99) mg/dL 11/18/18 11/19/18 11/19/18 Range/Units 23:01 00:55 02:09 RBC (3.80-5.40) m/uL Hgb (11.4-16.0) gm/dL Hct (34.0-46.0) % ABG HCO3 (21-25) mmol/L ABG Total CO2 (19-24) mmol/L Carbon Dioxide (22-30) mmol/L BUN (7-17) mg/dL Glucose (74-99) mg/dL POC Glucose (mg/dL) 143 H 139 H 149 H (75-99) mg/dL 11/19/18 11/19/18 11/19/18 Range/Units 03:35 05:05 05:20 RBC (3.80-5.40) m/uL Hgb (11.4-16.0) gm/dL Hct (34.0-46.0) % ABG HCO3 (21-25) mmol/L ABG Total CO2 (19-24) mmol/L Carbon Dioxide 35 H (22-30) mmol/L BUN 21 H (7-17) mg/dL Glucose 168 H (74-99) mg/dL POC Glucose (mg/dL) 150 H 163 H (75-99) mg/dL 11/19/18 11/19/18 Range/Units 05:20 06:24 RBC 3.49 L (3.80-5.40) m/uL Hgb 10.9 L (11.4-16.0) gm/dL Hct 33.2 L (34.0-46.0) % ABG HCO3 (21-25) mmol/L ABG Total CO2 (19-24) mmol/L Carbon Dioxide (22-30) mmol/L BUN (7-17) mg/dL Glucose (74-99) mg/dL POC Glucose (mg/dL) 155 H (75-99) mg/dL Microbiology - Last 24 Hours (Table) 11/15/18 14:26 Gram Stain - Final Ankle - Left Wound Culture - Final Staphylococcus aureus 11/15/18 14:26 Gram Stain - Final Ankle - Left Wound Culture - Final Staphylococcus aureus 11/15/18 16:54 Blood Culture - Preliminary Blood No Growth after 72 hours 11/16/18 04:13 Gram Stain - Final Sputum Sputum Culture - Final 11/15/18 14:26 Anaerobic Culture - Preliminary Ankle - Left 11/15/18 14:26 Anaerobic Culture - Preliminary Ankle - Left 11/16/18 08:45 Blood Culture - Preliminary Blood No Growth after 48 hours 11/16/18 08:40 Blood Culture - Preliminary Blood No Growth after 48 hours Assessment and Plan (1) Septic arthritis of left ankle Current Visit: Yes Status: Acute Code(s): M00.9 - PYOGENIC ARTHRITIS, UNSPECIFIED SNOMED Code(s): 5399921911521765 (2) Cellulitis of left lower extremity Current Visit: Yes Status: Acute Code(s): L03.116 - CELLULITIS OF LEFT LOWER LIMB SNOMED Code(s): 141424968 Plan: The clinical findings are discussed with the nursing staff. Nursing will change dressing later today. We will continue to follow. Continue IV antibiotics per infectious disease.
[2018-11-19 08:14] LABS: Glucose,Whole Blood 223 mg/dL (75-99)
--- NOTE | 2018-11-19 08:31 | XR ---
EXAMINATION TYPE: XR chest 1V portable DATE OF EXAM: 11/19/2018 Comparison: 11/18/2018 Clinical History: 68-year-old female Tube placement Findings: Interval removal of ET tube. Left CVC tip remains in the upper right atrium. Heart remains enlarged. Diffuse interstitial vascular prominence. Continued small to moderate left and small right effusions with prominent left greater than right bibasilar patchy opacities. Band of atelectasis right midlung. Impression: 1. Continued CHF with mild pulmonary vascular congestion, minimally improved from prior. 2. Continued [id number] left and small right pleural effusions with adjacent atelectasis and/o r consolidation.
[2018-11-19] MEDS ORDERED: FUROSEMIDE 10 MG/ML 4 ML VIAL IV SCH (09:00)
[2018-11-19] MEDS: CLOPIDOGREL 75 MG TAB PO SCH (09:38)
[2018-11-19] MEDS: ASPIRIN 81 MG PO SCH (09:38)
[2018-11-19] MEDS: FUROSEMIDE 10 MG/ML 4 ML VIAL IV SCH (09:39)
[2018-11-19 10:34] VITALS: BMI 39.3
[2018-11-19 11:55] LABS: Glucose,Whole Blood 232 mg/dL (75-99)
[2018-11-19] MEDS: INSULIN ASPART (NovoLOG) 100 UNIT/ML VIAL SQ SCH ×3 (12:13→22:14)
--- NOTE | 2018-11-19 12:35 | P.PN ---
Subjective Progress Note Date: 11/19/18 Principal diagnosis: Acute hypoxic respiratory failure related to sepsis. On 11/16/2018 I'm seeing this patient for a follow-up. The patient was ordered to seen earlier this morning by my partner. In any rate, the patient is currently intubated on a mechanical ventilator. She is an assist-control mode at a rate of 26 with a tidal volume of 400 and FiO2 of 50% with a PEEP of 5. She was having significant amount of air leak and this was in the order of 150 mL and this was adjusted at the bedside. Chest x-ray was reviewed and shows lower lobe active pulmonary infiltrates. Not get was reviewed. The patient is currently afebrile. The left ankle wound was checked. There is a drain within the joint which is not putting much of output. She is on a combination of cefe pime and vancomycin. The patient is on propofol at 50 mics. No pressors for now. She is going to complete the third liter of bolus. She is producing urine output. Blood work will be reviewed and the repeated. She is having elevated blood sugar. Insulin drip will be started all of the events that occurred yesterday were noted On 11/17/2018 patient seen in follow-up in the intensive care unit, she she remains intubated, on mechanical ventilator, current vent settings are assist- control mode of ventilation with a rate of 26, tidal vital 400, FiO2 of 40% and PEEP of 5. This morning's blood gas has been reviewed, showing pO2 of 112, pCO2 of 33, pH of 7.39, this was done on FiO2 of 50%.'s morning's chest x-ray has been reviewed, showing slightly worsening fluid overload with increasing small right pleural effusion and stable left pleural effusion and patient was given a dose of IV Lasix. Her dynamically remains stable, not requiring any vasopressor support at this time, IV fluids have been decreased down to keep open, Diprivan and is currently at 40 mics per kilo per minute. Plan infusion is at 4 units per hour. Antibiotic coverage in the form of cefepime and vancomycin, micr obiology showing Staphylococcus aureus in the left ankle aspirate, blood cultures were negative. Sputum culture showed no growth. His labs have been reviewed, showing white blood cell count of 9.7, hemoglobin of 9.5, serum sodium of 140, potassium is 4.4, chloride is 113, CO2 is 20, BUN of 20, creatinine 0.95. Orthopedic surgeries following, and the day remove the Ave drain from the left ankle to is draining minimal amount of sanguinous drainage. Afebrile, tachycardic, with a heart rate between 95-103 BPM. On 11/18/2018, patient is being seen in follow-up in intensive care unit. Mag ins intubated on a mechanical ventilator. Chest x-ray showing some cardiomegaly and pulmonary vascular congestion. She'll stop propofol designing a 50 mics and she was started enterofeeding. She'll support. No fever. No chills. Hemodynamic is stable. Given a dose of Lasix yesterday with excellent urine output and fluid balance of -2.8 L since the patient was given diuretics. The patient is calm and comfortable Emily patient is hemodynamically stable. The cultures on the left ankle grew MSSA and the patient is currently on IV Kefzol. The patient tolerating her tube feeds. Brother significant events overnight. No significant leukocytosis. The called up on 6.5. Blood gas from today showed a pH of 7.44 with a pCO2 of 37 and pO2 of 78 and this was on the frontal 50% with a tidal volume of 426 and a PEEP of 5. The patient is in a sinus rhythm. No other significant events otherwise over the past 24 hours. ID is on the case. Antibiotics has been switched from cefepime and vancomycin and was simplified to IV Kefzol. On 11/19/2018 patient seen in follow-up in the intensive care unit, she was successfully extubated yesterday at 5:00 in the evening and this morning she is doing well on 5 L of oxygen with a pulse ox of 96%, denies any respiratory difficulty, hemodynamically stable, she is afebrile, she is responding properly, although she states she feels a little foggy. No complaints of chest pain, no complaints of worsening dyspnea, no acute events overnight, today's chest x-ray has been review still showing mild pulmonary vessel congestion, minimally improved from prior exam, and small to moderate left and small right pleural effusions. We'll continue IV diuresis. Continue Lasix of 40 mg daily, she has produced 5100 of urine in the last 24 hours, she is in -3800 fluid balance. Lung sounds reveal diminished breath sounds with some crackles at bilateral bases, no significant rhonchi or rales, she is sinus tach on the monitor with a rate of 112, hemodynamically stable, IV 0.9 normal saline at a rate of 20, and insulin drip is infusing at 2-1/2 units per hour, patient has been started on clear liquid diet, tolerating oral diet very well, no significant lower extremity edema, wound culture from the left ankle aspirate revealed MSSA, and cefepime and vancomycin have been discontinued patient has been switched to cefazolin. No fever or chills Objective - Vital Signs Vital signs: Vital Signs Temp 98.4 F 11/19/18 12:00 Pulse 103 H 11/19/18 12:00 Resp 31 H 11/19/18 12:00 BP 138/85 11/19/18 12:00 Pulse Ox 96 11/19/18 12:00 Intake & Output 11/18/18 11/19/18 11/19/18 18:59 06:59 18:59 Intake Total 945.255 316.447 479.124 Output Total 2885 2215 1090 Balance -1939.745 -1898.553 -610.876 Weight 97.5 kg 97.5 kg Intake: IV 477 279 115 Cefepime 2 gm In Sodium 100 Chloride 0.9% 100 ml @ 200 mls/hr IVPB Q12HR JOANNA Rx#:[id number] Normal Saline Pressure 72 39 15 Bag Potassium Chloride 20 meq 100 In Water For Injection 1 100ml.bag @ 50 mls/hr IVPB ONCE STA Rx#: [id number] Sodium Chloride 0.9% 1, 205 240 100 000 ml @ 10 mls/hr IV . Q24H JOANNA Rx#:[id number] Intake, IV Titration 158.255 37.447 4.124 Amount Insulin Regular 100 unit 35.279 37.447 4.124 In Sodium Chloride 0.9% 100 ml @ Per Protocol IV .Q0M JOANNA Rx#:[id number] Propofol 1,000 mg In 122.976 Empty Bag 1 bag @ Titrate IV .Q0M JOANNA Rx#: [id number] Oral 360 Tube Feeding 160 Other 150 Output: Urine 2885 2215 1090 Other: Voiding Method Indwelling Catheter Indwelling Catheter Indwelling Catheter ABP, PAP, CO, CI - Last Documented Arterial Blood Pressure 146/89 - Exam GENERAL EXAM: Obese, 68-year-old white female, currently on 5 L of oxygen, with a pulse ox of 96%, comfortable in no apparent distress. HEAD: Normocephalic/atraumatic. EYES: Normal reaction of pupils, equal size. Conjunctiva pink, sclera white. NOSE: Clear with pink turbinates. THROAT: No erythema or exudates. NECK: No masses, no JVD, no thyroid enlargement, no adenopathy. CHEST: No chest wall deformity. Symmetrical expansion. LUNGS: Equal air entry with minimal crackles at bilateral lower lobes, and diminished breath sounds, particularly on the left lower lobe CVS: Regular rate and rhythm, normal S1 and S2, no gallops, no murmurs, no rubs ABDOMEN: Soft, nontender. No hepatosplenomegaly, normal bowel sounds, no guarding or rigidity. EXTREMITIES: No clubbing, left lower extremity edema, with a slight warmth in the left ankle joint, left ankle joint incision clean dry and intact, [place] drain has been removed small amount of sanguinous drainage on the dressing., no cyanosis, 2+ pulses and upper and lower extremities. MUSCULOSKELETAL: Muscle strength and tone normal. SPINE: No scoliosis or deformity SKIN: No rashes CENTRAL NERVOUS SYSTEM: Intubated, sedated. No focal deficits, tone is normal in all 4 extremities. - Labs CBC & Chem 7: 11/19/18 05:20 11/19/18 05:20 Labs: Abnormal Lab Results - Last 24 Hours (Table) 11/18/18 11/18/18 11/18/18 Range/Units 13:07 13:53 15:34 RBC (3.80-5.40) m/uL Hgb (11.4-16.0) gm/dL Hct (34.0-46.0) % ABG HCO3 30 H (21-25) mmol/L ABG Total CO2 31 H (19-24) mmol/L Carbon Dioxide (22-30) mmol/L BUN (7-17) mg/dL Glucose (74-99) mg/dL POC Glucose (mg/dL) 205 H 126 H (75-99) mg/dL 11/18/18 11/18/18 11/18/18 Range/Units 17:05 19:02 20:00 RBC (3.80-5.40) m/uL Hgb (11.4-16.0) gm/dL Hct (34.0-46.0) % ABG HCO3 (21-25) mmol/L ABG Total CO2 (19-24) mmol/L Carbon Dioxide (22-30) mmol/L BUN (7-17) mg/dL Glucose (74-99) mg/dL POC Glucose (mg/dL) 158 H 174 H 180 H (75-99) mg/dL 11/18/18 11/18/18 11/18/18 Range/Units 20:53 22:10 23:01 RBC (3.80-5.40) m/uL Hgb (11.4-16.0) gm/dL Hct (34.0-46.0) % ABG HCO3 (21-25) mmol/L ABG Total CO2 (19-24) mmol/L Carbon Dioxide (22-30) mmol/L BUN (7-17) mg/dL Glucose (74-99) mg/dL POC Glucose (mg/dL) 177 H 145 H 143 H (75-99) mg/dL 11/19/18 11/19/18 11/19/18 Range/Units 00:55 02:09 03:35 RBC (3.80-5.40) m/uL Hgb (11.4-16.0) gm/dL Hct (34.0-46.0) % ABG HCO3 (21-25) mmol/L ABG Total CO2 (19-24) mmol/L Carbon Dioxide (22-30) mmol/L BUN (7-17) mg/dL Glucose (74-99) mg/dL POC Glucose (mg/dL) 139 H 149 H 150 H (75-99) mg/dL 11/19/18 11/19/18 11/19/18 Range/Units 05:05 05:20 05:20 RBC 3.49 L (3.80-5.40) m/uL Hgb 10.9 L (11.4-16.0) gm/dL Hct 33.2 L (34.0-46.0) % ABG HCO3 (21-25) mmol/L ABG Total CO2 (19-24) mmol/L Carbon Dioxide 35 H (22-30) mmol/L BUN 21 H (7-17) mg/dL Glucose 168 H (74-99) mg/dL POC Glucose (mg/dL) 163 H (75-99) mg/dL 11/19/18 11/19/18 11/19/18 Range/Units 06:24 08:13 11:54 RBC (3.80-5.40) m/uL Hgb (11.4-16.0) gm/dL Hct (34.0-46.0) % ABG HCO3 (21-25) mmol/L ABG Total CO2 (19-24) mmol/L Carbon Dioxide (22-30) mmol/L BUN (7-17) mg/dL Glucose (74-99) mg/dL POC Glucose (mg/dL) 155 H 223 H 232 H (75-99) mg/dL Microbiology - Last 24 Hours (Table) 11/16/18 08:40 Blood Culture - Preliminary Blood No Growth after 72 hours 11/16/18 08:45 Blood Culture - Preliminary Blood No Growth after 72 hours 11/15/18 14:26 Gram Stain - Final Ankle - Left Wound Culture - Final Staphylococcus aureus 11/15/18 14:26 Gram Stain - Final Ankle - Left Wound Culture - Final Staphylococcus aureus 11/15/18 16:54 Blood Culture - Preliminary Blood No Growth after 72 hours 11/16/18 04:13 Gram Stain - Final Sputum Sputum Culture - Final 11/15/18 14:26 Anaerobic Culture - Preliminary Ankle - Left 11/15/18 14:26 Anaerobic Culture - Preliminary Ankle - Left Assessment and Plan Plan: Assessment: 1 acute hypoxic respiratory failure probably related to metabolic acidosis an underlying sepsis. The patient became progressively lethargic and obtunded and she developed acidosis which was a combination of respiratory metabolic acidosis in addition to lower lobe by the pulmonary infiltrates. The patient subsequently went to acute hypoxic respiratory failure requiring intubation mechanical ventilation On 11/19/2018 patient has been seen in follow-up, she was successfully extubated on 11/18/2018, tolerating extubation quite well 2 left ankle septic arthritis, post incision and drainage, aspirate cultures positive for Staphylococcus aureus 3 metabolic acidosis/lactic acidosis 4 hypotension, improved 5 diabetes mellitus with elevated blood sugar 6 hyperlipidemia 7 hypertension 8 acute kidney injury 9 acute hyperkalemia likely secondary to acute kidney injury and metabolic acidosis. 10 mild fluid overload, with the chest x-ray showing small bilateral pleural effusions and pulmonary vascular congestion Plan: We will continue the IV diuretics at 40 mg every day, patient is maintaining negative fluid balance, although her chest x-ray still shows changes of congestive heart failure and fluid overload. Weaning FiO2, encourage deep breathing and coughing, patient has been switched to cefazolin for antibiotic coverage for evidence of MSSA in her left ankle wound aspirate, hemodynamically patient is stable, may discontinue the insulin drip, may start the patient on Levemir 20 units daily, and Humalog sliding scale for coverage at mealtime, monitor vital signs, acurate intake and output, daily weights, will remain in the ICU today. I performed a history & physical examination of the patient and discussed their management with my nurse practitioner, Gwen Finney. I reviewed the nurse practitioner's note and agree with the documented findings and plan of care. Lung sounds are positive for diminished breath sounds. The findings and the impression was discussed with the patient. I attest to the documentation by the nurse practitioner. Time with Patient: Greater than 30
[2018-11-19 17:14] LABS: Glucose,Whole Blood 181 mg/dL (75-99)
[2018-11-19] MEDS: SODIUM CHLORIDE 0.9% 1,000 ML IV SCH (17:24)
--- NOTE | 2018-11-19 17:24 | PN ---
PROGRESS NOTE DATE OF SERVICE: 11/19/2018. REASON FOR FOLLOWUP: Left ankle MSSA abscess and cellulitis. INTERVAL HISTORY: The patient is currently afebrile. The patient has been extubated. She is breathing comfortably on room air. Denies having any chest pain, shortness of breath or cough or any worsening pain to the left ankle area. PHYSICAL EXAMINATION: Blood pressure is 142/79 with a pulse of 101, temperature of 98.4. She is 95% on 5 L nasal cannula. General description is an elderly female up in the bed in no distress. RESPIRATORY SYSTEM: Unlabored breathing. Clear to auscultation anteriorly. HEART: S1, S2. Regular rate and rhythm. ABDOMEN: Soft. No tenderness. Left ankle is currently dressed up. No obvious drainage on the dressing. LABS: Hemoglobin is 10.9, white count of 8.2, BUN of 21, creatinine 0.81. DIAGNOSTIC IMPRESSION AND PLAN: Patient with left ankle abscess, status post drainage. Clinical course complicated by developing cough, fluid overload and acute respiratory failure. The patient is currently extubated. She will continue with cefazolin 2 grams q.8 hours and we will monitor her clinical course closely. Continue with supportive care. MMODL / IJN: [id number] /
--- NOTE | 2018-11-19 21:01 | P.PN ---
Progress Note - Text Progress Note Date: 11/19/18 Chief Complaint: Left ankle pain Interval history: This is a pleasant 68-year-old patient of Dr. Maddox. Chronic stable medical conditions include diabetes, hypertension, hyperlipidemia,. Patient complains of pain in his left ankle for quite some time. Seems to progressively gotten worse. This pain and swelling. Denies any fever and chills. Denies any injury. Patient the best of historians. Admitted for the same. No fever no chills. Pain is localized to the left ankle and worse with activity. Finds it difficult to weight-bear. Better with rest. On November 15, arthrocentesis was done of the left ankle. Pus was obtained. Later patient was taken down to the OR for further drainage. Because of metabolic acidosis and sepsis patient went into respiratory distress and was intubated Today-. Patient was extubated this morning. In the ICU. On nasal cannula. Started on clear liquids. A bit tired. Able to answer simple questions. Review of systems: Was done for constitutional, cardiovascular, GI, pulmonary. relevant finding as above Active Medications Albuterol/Ipratropium (Duoneb 0.5 Mg-3 Mg/3 Ml Soln) 3 ml INHALATION RT-Q2H PRN PRN Reason: Shortness Of Breath Or Wheezing Albuterol/Ipratropium (Duoneb 0.5 Mg-3 Mg/3 Ml Soln) 3 ml INHALATION RT-QID [facility] Last Admin: 11/19/18 20:14 Dose: 3 ml Documented by: Aspirin (Aspirin) 81 mg PO DAILY [facility] Last Admin: 11/19/18 09:38 Dose: 81 mg Documented by: Clopidogrel Bisulfate (Plavix) 75 mg PO DAILY [facility] Last Admin: 11/19/18 09:38 Dose: 75 mg Documented by: Enoxaparin Sodium (Lovenox) 40 mg SQ Q24H [facility] Last Admin: 11/18/18 23:05 Dose: 40 mg Documented by: Furosemide (Lasix) 40 mg IV DAILY [facility] Last Admin: 11/19/18 09:39 Dose: 40 mg Documented by: Hydromorphone HCl (Dilaudid) 1 mg IVP Q4HR PRN PRN Reason: Pain Last Admin: 11/19/18 05:14 Dose: 0.5 mg Documented by: Sodium Chloride (Saline 0.9%) 1,000 mls @ 10 mls/hr IV .Q24H [facility] Last Admin: 11/19/18 17:24 Dose: 10 mls/hr Documented by: Cefazolin Sodium 2 gm/ Sodium (Chloride) 50 mls @ 100 mls/hr IVPB Q8HR [facility] Last Admin: 11/19/18 15:37 Dose: 100 mls/hr Documented by: Insulin Aspart (Novolog) 0 unit SQ ACHS [facility]; Protocol Last Admin: 11/19/18 17:22 Dose: 2 unit Documented by: Insulin Detemir (Levemir) 20 unit SQ DAILY@0700 [facility] Miscellaneous Information (Potassium Per Protocol) 1 each MISCELLANE DAILY PRN; Protocol PRN Reason: Per Protocol Naloxone HCl (Narcan) 0.2 mg IV Q2M PRN PRN Reason: Opioid Reversal Ondansetron HCl (Zofran) 4 mg IVP Q8HR PRN PRN Reason: Nausea And Vomiting Physical examination: VITAL SIGNS: 98.1, 107, 17, 144/78, 84% on nasal cannula GENERAL: Sitting up in bed, with nasal cannula tired EYES: Pupils equal. Conjunctiva normal. HEENT: External appearance of nose and ears normal, nasal cannula in place NECK: JVD unable to assess; masses not palpable. HEART: First and second heart sounds are normal; no edema. LUNGS: Respiratory rate increased, diminished breath sounds. ABDOMEN: Soft, nontender, liver spleen not palpable, no masses palpable. PSYCH: Awake, able answer simple questions MUSCULOSKELETAL: Dressing over the left ankle INVESTIGATIONS, reviewed in the clinical context: White count 8.2 hemoglobin 10.9 potassium 4.2 bun 21 and crit 0.81 Wound culture fluids growing MSSA Previous testing: . White count 14.5 hemoglobin 13.7 potassium 4.7 1:15 creatinine 1.03 Left foot and ankle x-ray-shows soft tissue swelling around the foot and the ankle Joint fluid: RBC 5400, polynuclear WBC 89, nucleated cells 93,000 Assessment: -Left ankle septic arthritis. Arthrocentesis did reveal pus. Status post I&D with a Ave drain line-cultures growing MSSA -Acute hypoxic respiratory failure with ventilator support secondary to sepsis, -Sepsis from septic arthritis, improved -Metabolic and lactic acidosis. -Diabetes mellitus type 2 -Obesity BMI 36.6 -Essential hypertension -Hyperlipidemia Plan: Patient is of the ventilator. On nasal cannula. Continue with supportive care and IV antibiotics. Tired to be advanced as tolerated.
[2018-11-19 21:57] LABS: Glucose,Whole Blood 203 mg/dL (75-99)
[2018-11-19] MEDS: ENOXAPARIN 40 MG/0.4 ML SYRINGE SQ SCH (22:14)
[2018-11-20] MEDS: HYDROmorphone 1 MG/ML 1 ML SYRINGE IVP PRN (00:04)
[2018-11-20 05:31] LABS: Basophils # (A) 0.1 k/uL (0-0.2); Basophils % (A) 1 %; Eosinophils # (A) 0.4 k/uL (0-0.7); Eosinophils % (A) 5 %; HCT 30.9 % (34.0-46.0); HGB 10.1 gm/dL (11.4-16.0); Lymphocytes # (A) 1.4 k/uL (1.0-4.8); Lymphocytes % (A) 17 %; MCHC 32.7 g/dL (31.0-37.0); MCV 94.6 fL (80.0-100.0); Mean Platelet Volume 7.4; Monocytes # (A) 0.5 k/uL (0-1.0); Monocytes % (A) 6 %; Neutrophils # (A) 5.4 k/uL (1.3-7.7); Neutrophils % (A) 67 %; Platelet Count 303 k/uL (150-450); RBC 3.26 m/uL (3.80-5.40); RDW 12.7 % (11.5-15.5)
[2018-11-20 06:20] LABS: Albumin 3.1 g/dL (3.5-5.0); Calcium 8.7 mg/dL (8.4-10.2); Potassium 4.3 mmol/L (3.5-5.1); Total Bilirubin 0.4 mg/dL (0.2-1.3); Total Protein 5.8 g/dL (6.3-8.2)
[2018-11-20 06:42] LABS: Glucose,Whole Blood 198 mg/dL (75-99)
[2018-11-20] MEDS: INSULIN DETEMIR (LEVEMIR) 100 UNIT/ML SYR SQ SCH (07:10)
[2018-11-20] MEDS: INSULIN ASPART (NovoLOG) 100 UNIT/ML VIAL SQ SCH ×4 (07:10→21:44)
[2018-11-20] MEDS: IPRATROPIUM-ALBUTEROL 3 ML NEB INHALATION SCH ×4 (08:00→19:20)
[2018-11-20] MEDS: FUROSEMIDE 10 MG/ML 4 ML VIAL IV SCH (08:25)
[2018-11-20] MEDS: CLOPIDOGREL 75 MG TAB PO SCH (08:25)
[2018-11-20] MEDS: ASPIRIN 81 MG PO SCH (08:25)
--- NOTE | 2018-11-20 11:06 | P.PN ---
Subjective Progress Note Date: 11/20/18 Principal diagnosis: Status post left ankle I&D This is a 68 year-old female post left ankle I&D. This is post-op day 5. The patient was evaluated at the bedside today. The patient denies nausea, vomiting, abdominal pain, shortness of breath, and chest pain this morning. She states her pain is controlled at this time. The patient has not been up with physical therapy. She is feeling better this morning. No new complaints today. Objective - Vital Signs Vital signs: Vital Signs Temp 98.3 F 11/20/18 08:00 Pulse 99 11/20/18 10:00 Resp 15 11/20/18 10:00 BP 111/58 11/20/18 10:00 Pulse Ox 95 11/20/18 10:00 Intake & Output 11/19/18 11/20/18 11/20/18 18:59 06:59 18:59 Intake Total 617.124 426 263 Output Total 1520 395 770 Balance -902.876 31 -507 Weight 97.5 kg 91.9 kg Intake: IV 253 176 43 Normal Saline Pressure 33 36 23 Bag Sodium Chloride 0.9% 1, 220 140 20 000 ml @ 10 mls/hr IV . Q24H JOANNA Rx#:[id number] Intake, IV Titration 4.124 100 Amount Insulin Regular 100 unit 4.124 In Sodium Chloride 0.9% 100 ml @ Per Protocol IV .Q0M JOANNA Rx#:[id number] ceFAZolin 2 gm In Sodium 100 Chloride 0.9% 50 ml @ 100 mls/hr IVPB Q8HR JOANNA Rx# :[id number] Oral 360 250 120 Output: Urine 1520 395 770 Other: Voiding Method Indwelling Catheter Indwelling Catheter Indwelling Catheter ABP, PAP, CO, CI - Last Documented Arterial Blood Pressure 146/89 - Exam The patient does not appear in acute distress. Alert and orientated x3. Dressing is clean dry and intact. Calf is soft and nontender. Good foot and ankle motion without difficulty. Decreased sensation in the foot, which in chronic in nature. Circulatory status is intact. - Labs CBC & Chem 7: 11/20/18 05:16 11/20/18 05:16 Labs: Abnormal Lab Results - Last 24 Hours (Table) 11/19/18 11/19/18 11/19/18 Range/Units 11:54 17:02 21:55 RBC (3.80-5.40) m/uL Hgb (11.4-16.0) gm/dL Hct (34.0-46.0) % Chloride (98-107) mmol/L Carbon Dioxide (22-30) mmol/L BUN (7-17) mg/dL Glucose (74-99) mg/dL POC Glucose (mg/dL) 232 H 181 H 203 H (75-99) mg/dL Total Protein (6.3-8.2) g/dL Albumin (3.5-5.0) g/dL 11/20/18 11/20/18 11/20/18 Range/Units 05:16 05:16 06:41 RBC 3.26 L (3.80-5.40) m/uL Hgb 10.1 L (11.4-16.0) gm/dL Hct 30.9 L (34.0-46.0) % Chloride 97 L (98-107) mmol/L Carbon Dioxide 34 H (22-30) mmol/L BUN 28 H (7-17) mg/dL Glucose 204 H (74-99) mg/dL POC Glucose (mg/dL) 198 H (75-99) mg/dL Total Protein 5.8 L (6.3-8.2) g/dL Albumin 3.1 L (3.5-5.0) g/dL Microbiology - Last 24 Hours (Table) 11/16/18 08:45 Blood Culture - Preliminary Blood No Growth after 96 hours 11/16/18 08:40 Blood Culture - Preliminary Blood No Growth after 96 hours 11/15/18 14:26 Anaerobic Culture - Final Ankle - Left 11/15/18 14:26 Anaerobic Culture - Final Ankle - Left 11/15/18 16:54 Blood Culture - Preliminary Blood No Growth after 96 hours 11/15/18 14:26 Gram Stain - Final Ankle - Left Wound Culture - Final Staphylococcus aureus Assessment and Plan (1) Cellulitis of left lower extremity Current Visit: Yes Status: Acute Code(s): L03.116 - CELLULITIS OF LEFT LOWER LIMB SNOMED Code(s): 030402659 Plan: 1. Continue pain control 2. Daily dressing changes 3. Continue physical therapy and ambulation 4. Antibiotic therapy per infectious disease
[2018-11-20 11:28] LABS: Glucose,Whole Blood 211 mg/dL (75-99)
--- NOTE | 2018-11-20 12:43 | P.PN ---
Subjective Progress Note Date: 11/20/18 On 11/16/2018 I'm seeing this patient for a follow-up. The patient was ordered to seen earlier this morning by my partner. In any rate, the patient is currently intubated on a mechanical ventilator. She is an assist-control mode at a rate of 26 with a tidal volume of 400 and FiO2 of 50% with a PEEP of 5. She was having significant amount of air leak and this was in the order of 150 mL and this was adjusted at the bedside. Chest x-ray was reviewed and shows lower lobe active pulmonary infiltrates. Not get was reviewed. The patient is currently afebrile. The left ankle wound was checked. There is a drain within the joint which is not putting much of output. She is on a combination of cefe pime and vancomycin. The patient is on propofol at 50 mics. No pressors for now. She is going to complete the third liter of bolus. She is producing urine output. Blood work will be reviewed and the repeated. She is having elevated blood sugar. Insulin drip will be started all of the events that occurred yesterday were noted On 11/17/2018 patient seen in follow-up in the intensive care unit, she she remains intubated, on mechanical ventilator, current vent settings are assist- control mode of ventilation with a rate of 26, tidal vital 400, FiO2 of 40% and PEEP of 5. This morning's blood gas has been reviewed, showing pO2 of 112, pCO2 of 33, pH of 7.39, this was done on FiO2 of 50%.'s morning's chest x-ray has been reviewed, showing slightly worsening fluid overload with increasing small right pleural effusion and stable left pleural effusion and patient was given a dose of IV Lasix. Her dynamically remains stable, not requiring any vasopressor support at this time, IV fluids have been decreased down to keep open, Diprivan and is currently at 40 mics per kilo per minute. Plan infusion is at 4 units per hour. Antibiotic coverage in the form of cefepime and vancomycin, micr obiology showing Staphylococcus aureus in the left ankle aspirate, blood cultures were negative. Sputum culture showed no growth. His labs have been reviewed, showing white blood cell count of 9.7, hemoglobin of 9.5, serum sodium of 140, potassium is 4.4, chloride is 113, CO2 is 20, BUN of 20, creatinine 0.95. Orthopedic surgeries following, and the day remove the Ave drain from the left ankle to is draining minimal amount of sanguinous drainage. Afebrile, tachycardic, with a heart rate between 95-103 BPM. On 11/18/2018, patient is being seen in follow-up in intensive care unit. Mag ins intubated on a mechanical ventilator. Chest x-ray showing some cardiomegaly and pulmonary vascular congestion. She'll stop propofol designing a 50 mics and she was started enterofeeding. She'll support. No fever. No chills. Hemodynamic is stable. Given a dose of Lasix yesterday with excellent urine output and fluid balance of -2.8 L since the patient was given diuretics. The patient is calm and comfortable Emily patient is hemodynamically stable. The cultures on the left ankle grew MSSA and the patient is currently on IV Kefzol. The patient tolerating her tube feeds. Brother significant events overnight. No significant leukocytosis. The called up on 6.5. Blood gas from today showed a pH of 7.44 with a pCO2 of 37 and pO2 of 78 and this was on the frontal 50% with a tidal volume of 426 and a PEEP of 5. The patient is in a sinus rhythm. No other significant events otherwise over the past 24 hours. ID is on the case. Antibiotics has been switched from cefepime and vancomycin and was simplified to IV Kefzol. On 11/19/2018 patient seen in follow-up in the intensive care unit, she was successfully extubated yesterday at 5:00 in the evening and this morning she is doing well on 5 L of oxygen with a pulse ox of 96%, denies any respiratory difficulty, hemodynamically stable, she is afebrile, she is responding properly, although she states she feels a little foggy. No complaints of chest pain, no complaints of worsening dyspnea, no acute events overnight, today's chest x-ray has been review still showing mild pulmonary vessel congestion, minimally improved from prior exam, and small to moderate left and small right pleural effusions. We'll continue IV diuresis. Continue Lasix of 40 mg daily, she has produced 5100 of urine in the last 24 hours, she is in -3800 fluid balance. Lung sounds reveal diminished breath sounds with some crackles at bilateral bases, no significant rhonchi or rales, she is sinus tach on the monitor with a rate of 112, hemodynamically stable, IV 0.9 normal saline at a rate of 20, and insulin drip is infusing at 2-1/2 units per hour, patient has been started on clear liquid diet, tolerating oral diet very well, no significant lower extremity edema, wound culture from the left ankle aspirate revealed MSSA, and cefepime and vancomycin have been discontinued patient has been switched to cefazolin. No fever or chills On 11/20/2018 I'm seeing this patient for a follow-up. The patient remains extubated, comfortable likely distress. No significant respiratory distress for now. The patient is hemodynamically stable. The patient is not utilizing any form of pressors. The patient is afebrile. The patient is currently on 40 to about 2 by nasal cannula. No nausea. No vomiting. No bowel pain. No chest pain. Tolerating her diet. Able to sit up on a chair. She remains on IV antibiotics with IV cefazolin regarding the septic arthritis that was attributed to MSSA. Lovenox for DVT prophylaxis. No other significant events overnight. Lantus insulin was restarted at a dose of 20 units on a daily basis and the patient has a adequate blood sugar control on with a sliding scale coverage. No chills. No fever. No altered mentation.. Objective - Vital Signs Vital signs: Vital Signs Temp 98.2 F 11/20/18 12:00 Pulse 98 11/20/18 12:00 Resp 12 11/20/18 12:00 BP 104/67 11/20/18 12:00 Pulse Ox 84 L 11/20/18 12:00 Intake & Output 11/19/18 11/20/18 11/20/18 18:59 06:59 18:59 Intake Total 617.124 426 383 Output Total 2775 291 3196 Balance -902.876 31 -757 Weight 97.5 kg 91.9 kg Intake: IV 253 176 43 Normal Saline Pressure 33 36 23 Bag Sodium Chloride 0.9% 1, 220 140 20 000 ml @ 10 mls/hr IV . Q24H [facility] Rx#:[id number] Intake, IV Titration 4.124 100 Amount Insulin Regular 100 unit 4.124 In Sodium Chloride 0.9% 100 ml @ Per Protocol IV .Q0M [facility] Rx#:[id number] ceFAZolin 2 gm In Sodium 100 Chloride 0.9% 50 ml @ 100 mls/hr IVPB Q8HR [facility] Rx# :[id number] Oral 360 250 240 Output: Urine 2329 575 7287 Other: Voiding Method Indwelling Catheter Indwelling Catheter Indwelling Catheter ABP, PAP, CO, CI - Last Documented Arterial Blood Pressure 146/89 - Exam GENERAL EXAM: Obese, 68-year-old white female, currently on 4 L of oxygen, with a pulse ox of 96%, comfortable in no apparent distress. HEAD: Normocephalic/atraumatic. EYES: Normal reaction of pupils, equal size. Conjunctiva pink, sclera white. NOSE: Clear with pink turbinates. THROAT: No erythema or exudates. NECK: No masses, no JVD, no thyroid enlargement, no adenopathy. CHEST: No chest wall deformity. Symmetrical expansion. LUNGS: Equal air entry with minimal crackles at bilateral lower lobes, and diminished breath sounds, particularly on the left lower lobe CVS: Regular rate and rhythm, normal S1 and S2, no gallops, no murmurs, no rubs ABDOMEN: Soft, nontender. No hepatosplenomegaly, normal bowel sounds, no guarding or rigidity. EXTREMITIES: No clubbing, left lower extremity edema, with a slight warmth in the left ankle joint, left ankle joint incision clean dry and intact, [place] drain has been removed small amount of sanguinous drainage on the dressing., no cyanosis, 2+ pulses and upper and lower extremities. MUSCULOSKELETAL: Muscle strength and tone normal. SPINE: No scoliosis or deformity SKIN: No rashes CENTRAL NERVOUS SYSTEM: Intubated, sedated. No focal deficits, tone is normal in all 4 extremities. - Labs CBC & Chem 7: 11/20/18 05:16 11/20/18 05:16 Labs: Abnormal Lab Results - Last 24 Hours (Table) 11/19/18 11/19/18 11/20/18 Range/Units 17:02 21:55 05:16 RBC 3.26 L (3.80-5.40) m/uL Hgb 10.1 L (11.4-16.0) gm/dL Hct 30.9 L (34.0-46.0) % Chloride (98-107) mmol/L Carbon Dioxide (22-30) mmol/L BUN (7-17) mg/dL Glucose (74-99) mg/dL POC Glucose (mg/dL) 181 H 203 H (75-99) mg/dL Total Protein (6.3-8.2) g/dL Albumin (3.5-5.0) g/dL 11/20/18 11/20/18 11/20/18 Range/Units 05:16 06:41 11:26 RBC (3.80-5.40) m/uL Hgb (11.4-16.0) gm/dL Hct (34.0-46.0) % Chloride 97 L (98-107) mmol/L Carbon Dioxide 34 H (22-30) mmol/L BUN 28 H (7-17) mg/dL Glucose 204 H (74-99) mg/dL POC Glucose (mg/dL) 198 H 211 H (75-99) mg/dL Total Protein 5.8 L (6.3-8.2) g/dL Albumin 3.1 L (3.5-5.0) g/dL Microbiology - Last 24 Hours (Table) 11/16/18 08:45 Blood Culture - Preliminary Blood No Growth after 96 hours 11/16/18 08:40 Blood Culture - Preliminary Blood No Growth after 96 hours 11/15/18 14:26 Anaerobic Culture - Final Ankle - Left 11/15/18 14:26 Anaerobic Culture - Final Ankle - Left 11/15/18 16:54 Blood Culture - Preliminary Blood No Growth after 96 hours 11/15/18 14:26 Gram Stain - Final Ankle - Left Wound Culture - Final Staphylococcus aureus Assessment and Plan Plan: 1 acute hypoxic respiratory failure probably related to metabolic acidosis an underlying sepsis. The patient became progressively lethargic and obtunded and she developed acidosis which was a combination of respiratory metabolic acidosis in addition to lower lobe by the pulmonary infiltrates. The patient subsequen tly went to acute hypoxic respiratory failure requiring intubation mechanical ventilation. The patient for now is extubated and patient is currently on 4 L of oxygen by nasal cannula. No signs of respiratory distress. She is using incentive spirometer. 2 left ankle septic arthritis, post incision and drainage, aspirate cultures positive for Staphylococcus aureus, this is MSSA and the patient is currently on IV cefazolin 3 metabolic acidosis/lactic acidosis, recovered 4 hypotension, improved, recovered 5 diabetes mellitus with elevated blood sugar 6 hyperlipidemia 7 hypertension 8 acute kidney injury, recovered 9 acute hyperkalemia likely secondary to acute kidney injury and metabolic acidosis., Recovered 10 mild fluid overload, with the chest x-ray showing small bilateral pleural effusions and pulmonary vascular congestion, recovered Plan Continue IV cefazolin. Incentive spirometer. DuoNeb the right seems [id number]. Daily Lasix 40 mg IV push every 24 hours. Lantus insulin 20 units daily along with his vascular coverage. Cut down the IV fluids to KVO. The patient can be transferred to medical surgical floor with remote telemetry.
--- NOTE | 2018-11-20 14:39 | P.PN ---
Progress Note - Text Progress Note Date: 11/20/18 Chief Complaint: Left ankle pain Interval history: This is a pleasant 68-year-old patient of Dr. Maddox. Chronic stable medical conditions include diabetes, hypertension, hyperlipidemia,. Patient complains of pain in his left ankle for quite some time. Seems to progressively gotten worse. This pain and swelling. Denies any fever and chills. Denies any injury. Patient the best of historians. Admitted for the same. No fever no chills. Pain is localized to the left ankle and worse with activity. Finds it difficult to weight-bear. Better with rest. On November 15, arthrocentesis was done of the left ankle. Pus was obtained. Later patient was taken down to the OR for further drainage. Because of metabolic acidosis and sepsis patient went into respiratory distress and was intubated. Extubated on November 19 Today-. Laying in bed. More awake. Nasal cannula in place. Tolerating a diet. No pain in the ankle. Review of systems: Was done for constitutional, cardiovascular, GI, pulmonary. relevant finding as above Active Medications Albuterol/Ipratropium (Duoneb 0.5 Mg-3 Mg/3 Ml Soln) 3 ml INHALATION RT-Q2H PRN PRN Reason: Shortness Of Breath Or Wheezing Albuterol/Ipratropium (Duoneb 0.5 Mg-3 Mg/3 Ml Soln) 3 ml INHALATION RT-QID [facility] Last Admin: 11/20/18 11:38 Dose: 3 ml Documented by: Aspirin (Aspirin) 81 mg PO DAILY [facility] Last Admin: 11/20/18 08:25 Dose: 81 mg Documented by: Clopidogrel Bisulfate (Plavix) 75 mg PO DAILY [facility] Last Admin: 11/20/18 08:25 Dose: 75 mg Documented by: Enoxaparin Sodium (Lovenox) 40 mg SQ Q24H [facility] Last Admin: 11/19/18 22:14 Dose: 40 mg Documented by: Furosemide (Lasix) 40 mg IV DAILY [facility] Last Admin: 11/20/18 08:25 Dose: 40 mg Documented by: Hydromorphone HCl (Dilaudid) 1 mg IVP Q4HR PRN PRN Reason: Pain Last Admin: 11/20/18 00:04 Dose: 1 mg Documented by: Sodium Chloride (Saline 0.9%) 1,000 mls @ 10 mls/hr IV .Q24H [facility] Last Admin: 11/19/18 17:24 Dose: 10 mls/hr Documented by: Cefazolin Sodium 2 gm/ Sodium (Chloride) 50 mls @ 100 mls/hr IVPB Q8HR [facility] Last Admin: 11/20/18 08:40 Dose: 100 mls/hr Documented by: Insulin Aspart (Novolog) 0 unit SQ ACHS [facility]; Protocol Last Admin: 11/20/18 12:03 Dose: 3 unit Documented by: Insulin Detemir (Levemir) 20 unit SQ DAILY@0700 [facility] Last Admin: 11/20/18 07:10 Dose: 20 unit Documented by: Miscellaneous Information (Potassium Per Protocol) 1 each MISCELLANE DAILY PRN; Protocol PRN Reason: Per Protocol Naloxone HCl (Narcan) 0.2 mg IV Q2M PRN PRN Reason: Opioid Reversal Ondansetron HCl (Zofran) 4 mg IVP Q8HR PRN PRN Reason: Nausea And Vomiting Physical examination: VITAL SIGNS: 98.2, 98, 12, 104/67, GENERAL: Sitting up in bed, with nasal cannula, more awake than yesterday EYES: Pupils equal. Conjunctiva normal. HEENT: External appearance of nose and ears normal, nasal cannula in place NECK: JVD unable to assess; masses not palpable. HEART: First and second heart sounds are normal; no edema. LUNGS: Respiratory rate increased, diminished breath sounds. ABDOMEN: Soft, nontender, liver spleen not palpable, no masses palpable. PSYCH: Awake, able answer simple questions MUSCULOSKELETAL: Dressing over the left ankle INVESTIGATIONS, reviewed in the clinical context: White count 8 hemoglobin 10.1 potassium 4.3 creatinine 0.79 Wound culture fluids growing MSSA Previous testing: . White count 14.5 hemoglobin 13.7 potassium 4.7 1:15 creatinine 1.03 Left foot and ankle x-ray-shows soft tissue swelling around the foot and the ankle Joint fluid: RBC 5400, polynuclear WBC 89, nucleated cells 93,000 Assessment: -Left ankle septic arthritis. Arthrocentesis did reveal pus. Status post I&D with a [place] drain line-cultures growing MSSA -Acute hypoxic respiratory failure with ventilator support secondary to sepsis, -Sepsis from septic arthritis, improved -Metabolic and lactic acidosis. -Diabetes mellitus type 2 -Obesity BMI 36.6 -Essential hypertension -Hyperlipidemia Plan: Doing much better. Can be transferred out of the ICU. IV antibiotics to cont inue. Care was discussed with the patient. Stable improved.
[2018-11-20] MEDS: ACETAMINOPHEN TAB 325 MG TAB PO PRN ×2 (16:22→22:52)
[2018-11-20] MEDS: SODIUM CHLORIDE 0.9% 1,000 ML IV SCH (16:26)
[2018-11-20 16:33] LABS: Glucose,Whole Blood 167 mg/dL (75-99)
[2018-11-20 20:38] LABS: Glucose,Whole Blood 251 mg/dL (75-99)
[2018-11-20] MEDS: ENOXAPARIN 40 MG/0.4 ML SYRINGE SQ SCH (21:44)
[2018-11-21 06:52] LABS: Glucose,Whole Blood 216 mg/dL (75-99)
[2018-11-21] MEDS: INSULIN ASPART (NovoLOG) 100 UNIT/ML VIAL SQ SCH ×4 (07:02→20:31)
[2018-11-21] MEDS: INSULIN DETEMIR (LEVEMIR) 100 UNIT/ML SYR SQ SCH (07:02)
[2018-11-21] MEDS: IPRATROPIUM-ALBUTEROL 3 ML NEB INHALATION SCH ×4 (07:32→18:58)
[2018-11-21] MEDS: ASPIRIN 81 MG PO SCH (08:14)
[2018-11-21] MEDS: CLOPIDOGREL 75 MG TAB PO SCH (08:14)
[2018-11-21] MEDS: FUROSEMIDE 10 MG/ML 4 ML VIAL IV SCH (08:14)
--- NOTE | 2018-11-21 10:19 | P.PN ---
Subjective Progress Note Date: 11/21/18 Principal diagnosis: Status post left ankle I&D This is a 68 year-old female post left ankle I&D. This is post-op day 6. The patient was evaluated at the bedside today in ICU. The patient denies nausea, vomiting, abdominal pain, shortness of breath, and chest pain this morning. She states her pain is controlled at this time. The patient has not been up with physical therapy. She is feeling better this morning. No new complaints today. Objective - Vital Signs Vital signs: Vital Signs Temp 98.3 F 11/21/18 08:00 Pulse 88 11/21/18 08:00 Resp 23 11/21/18 08:00 BP 129/73 11/21/18 08:00 Pulse Ox 97 11/21/18 08:00 Intake & Output 11/20/18 11/21/18 11/21/18 18:59 06:59 18:59 Intake Total 1163 200 118 Output Total 1840 690 160 Balance -677 -490 -42 Weight 96.1 kg Intake: IV 63 200 Normal Saline Pressure 23 Bag Sodium Chloride 0.9% 1, 40 100 000 ml @ 10 mls/hr IV . Q24H [facility] Rx#:[id number] ceFAZolin 2 gm In Sodium 100 Chloride 0.9% 50 ml @ 100 mls/hr IVPB Q8HR [facility] Rx# :[id number] Intake, IV Titration 160 Amount Sodium Chloride 0.9% 1, 10 000 ml @ 10 mls/hr IV . Q24H [facility] Rx#:[id number] ceFAZolin 2 gm In Sodium 150 Chloride 0.9% 50 ml @ 100 mls/hr IVPB Q8HR [facility] Rx# :[id number] Oral 940 118 Output: Urine 1840 690 160 Other: Voiding Method Indwelling Catheter Indwelling Catheter Indwelling Catheter ABP, PAP, CO, CI - Last Documented Arterial Blood Pressure 146/89 - Exam The patient does not appear in acute distress. Alert and orientated x3. Dressing is clean dry and intact. Calf is soft and nontender. Good foot and ankle motion without difficulty. Decreased sensation in the foot, which in chronic in nature. Circulatory status is intact. - Labs CBC & Chem 7: 11/20/18 05:16 11/20/18 05:16 Labs: Abnormal Lab Results - Last 24 Hours (Table) 11/20/18 11/20/18 11/20/18 Range/Units 11:26 16:32 20:28 POC Glucose (mg/dL) 211 H 167 H 251 H (75-99) mg/dL 11/21/18 Range/Units 06:40 POC Glucose (mg/dL) 216 H (75-99) mg/dL Microbiology - Last 24 Hours (Table) 11/15/18 16:54 Blood Culture - Preliminary Blood No Growth after 120 hours 11/16/18 08:45 Blood Culture - Preliminary Blood No Growth after 96 hours 11/16/18 08:40 Blood Culture - Preliminary Blood No Growth after 96 hours Assessment and Plan (1) Cellulitis of left lower extremity Current Visit: Yes Status: Acute Code(s): L03.116 - CELLULITIS OF LEFT LOWER LIMB SNOMED Code(s): 903233892 Plan: 1. Continue pain control 2. Daily dressing changes 3. Continue physical therapy and ambulation 4. Antibiotic therapy per infectious disease
--- NOTE | 2018-11-21 11:34 | P.PN ---
Subjective Progress Note Date: 11/21/18 On 11/16/2018 I'm seeing this patient for a follow-up. The patient was ordered to seen earlier this morning by my partner. In any rate, the patient is currently intubated on a mechanical ventilator. She is an assist-control mode at a rate of 26 with a tidal volume of 400 and FiO2 of 50% with a PEEP of 5. She was having significant amount of air leak and this was in the order of 150 mL and this was adjusted at the bedside. Chest x-ray was reviewed and shows lower lobe active pulmonary infiltrates. Not get was reviewed. The patient is currently afebrile. The left ankle wound was checked. There is a drain within the joint which is not putting much of output. She is on a combination of cefe pime and vancomycin. The patient is on propofol at 50 mics. No pressors for now. She is going to complete the third liter of bolus. She is producing urine output. Blood work will be reviewed and the repeated. She is having elevated blood sugar. Insulin drip will be started all of the events that occurred yesterday were noted On 11/17/2018 patient seen in follow-up in the intensive care unit, she she remains intubated, on mechanical ventilator, current vent settings are assist- control mode of ventilation with a rate of 26, tidal vital 400, FiO2 of 40% and PEEP of 5. This morning's blood gas has been reviewed, showing pO2 of 112, pCO2 of 33, pH of 7.39, this was done on FiO2 of 50%.'s morning's chest x-ray has been reviewed, showing slightly worsening fluid overload with increasing small right pleural effusion and stable left pleural effusion and patient was given a dose of IV Lasix. Her dynamically remains stable, not requiring any vasopressor support at this time, IV fluids have been decreased down to keep open, Diprivan and is currently at 40 mics per kilo per minute. Plan infusion is at 4 units per hour. Antibiotic coverage in the form of cefepime and vancomycin, micr obiology showing Staphylococcus aureus in the left ankle aspirate, blood cultures were negative. Sputum culture showed no growth. His labs have been reviewed, showing white blood cell count of 9.7, hemoglobin of 9.5, serum sodium of 140, potassium is 4.4, chloride is 113, CO2 is 20, BUN of 20, creatinine 0.95. Orthopedic surgeries following, and the day remove the Ave drain from the left ankle to is draining minimal amount of sanguinous drainage. Afebrile, tachycardic, with a heart rate between 95-103 BPM. On 11/18/2018, patient is being seen in follow-up in intensive care unit. Mag ins intubated on a mechanical ventilator. Chest x-ray showing some cardiomegaly and pulmonary vascular congestion. She'll stop propofol designing a 50 mics and she was started enterofeeding. She'll support. No fever. No chills. Hemodynamic is stable. Given a dose of Lasix yesterday with excellent urine output and fluid balance of -2.8 L since the patient was given diuretics. The patient is calm and comfortable Emily patient is hemodynamically stable. The cultures on the left ankle grew MSSA and the patient is currently on IV Kefzol. The patient tolerating her tube feeds. Brother significant events overnight. No significant leukocytosis. The called up on 6.5. Blood gas from today showed a pH of 7.44 with a pCO2 of 37 and pO2 of 78 and this was on the frontal 50% with a tidal volume of 426 and a PEEP of 5. The patient is in a sinus rhythm. No other significant events otherwise over the past 24 hours. ID is on the case. Antibiotics has been switched from cefepime and vancomycin and was simplified to IV Kefzol. On 11/19/2018 patient seen in follow-up in the intensive care unit, she was successfully extubated yesterday at 5:00 in the evening and this morning she is doing well on 5 L of oxygen with a pulse ox of 96%, denies any respiratory difficulty, hemodynamically stable, she is afebrile, she is responding properly, although she states she feels a little foggy. No complaints of chest pain, no complaints of worsening dyspnea, no acute events overnight, today's chest x-ray has been review still showing mild pulmonary vessel congestion, minimally improved from prior exam, and small to moderate left and small right pleural effusions. We'll continue IV diuresis. Continue Lasix of 40 mg daily, she has produced 5100 of urine in the last 24 hours, she is in -3800 fluid balance. Lung sounds reveal diminished breath sounds with some crackles at bilateral bases, no significant rhonchi or rales, she is sinus tach on the monitor with a rate of 112, hemodynamically stable, IV 0.9 normal saline at a rate of 20, and insulin drip is infusing at 2-1/2 units per hour, patient has been started on clear liquid diet, tolerating oral diet very well, no significant lower extremity edema, wound culture from the left ankle aspirate revealed MSSA, and cefepime and vancomycin have been discontinued patient has been switched to cefazolin. No fever or chills On 11/20/2018 I'm seeing this patient for a follow-up. The patient remains extubated, comfortable likely distress. No significant respiratory distress for now. The patient is hemodynamically stable. The patient is not utilizing any form of pressors. The patient is afebrile. The patient is currently on 40 to about 2 by nasal cannula. No nausea. No vomiting. No bowel pain. No chest pain. Tolerating her diet. Able to sit up on a chair. She remains on IV antibiotics with IV cefazolin regarding the septic arthritis that was attributed to MSSA. Lovenox for DVT prophylaxis. No other significant events overnight. Lantus insulin was restarted at a dose of 20 units on a daily basis and the patient has a adequate blood sugar control on with a sliding scale coverage. No chills. No fever. No altered mentation.. On 11/21/2018, the patient remains essentially stable. No altered mentation. No respiratory distress. No cough or sputum production. No fever. No chills. No night sweats. Receiving daily Lasix 40 mg IV. Receiving IV cefazolin. Blood sugars under good control. Orthopedic surgeries on the case. ID is on the case. The patient will be chest at the medical floor. She is tolerating her diet. No nausea. No vomiting. No altered mentation. No other significant events overnight. The patient is post ventilator-dependent respiratory failure due to sepsis Objective - Vital Signs Vital signs: Vital Signs Temp 98.3 F 11/21/18 08:00 Pulse 89 11/21/18 11:27 Resp 23 11/21/18 08:00 BP 129/73 11/21/18 08:00 Pulse Ox 97 11/21/18 08:00 Intake & Output 09/07/19 09/08/19 09/08/19 18:59 06:59 18:59 Intake Total 1163 200 118 Output Total 1840 690 160 Balance -677 -490 -42 Weight 96.1 kg Intake: IV 63 200 Normal Saline Pressure 23 Bag Sodium Chloride 0.9% 1, 40 100 000 ml @ 10 mls/hr IV . Q24H JOANNA Rx#:[id number] ceFAZolin 2 gm In Sodium 100 Chloride 0.9% 50 ml @ 100 mls/hr IVPB Q8HR JOANNA Rx# :[id number] Intake, IV Titration 160 Amount Sodium Chloride 0.9% 1, 10 000 ml @ 10 mls/hr IV . Q24H JOANNA Rx#:[id number] ceFAZolin 2 gm In Sodium 150 Chloride 0.9% 50 ml @ 100 mls/hr IVPB Q8HR JOANNA Rx# :[id number] Oral 940 118 Output: Urine 1840 690 160 Other: Voiding Method Indwelling Catheter Indwelling Catheter Indwelling Catheter ABP, PAP, CO, CI - Last Documented Arterial Blood Pressure 146/89 - Exam GENERAL EXAM: Obese, 68-year-old white female, currently on 4 L of oxygen, with a pulse ox of 96%, comfortable in no apparent distress. HEAD: Normocephalic/atraumatic. EYES: Normal reaction of pupils, equal size. Conjunctiva pink, sclera white. NOSE: Clear with pink turbinates. THROAT: No erythema or exudates. NECK: No masses, no JVD, no thyroid enlargement, no adenopathy. CHEST: No chest wall deformity. Symmetrical expansion. LUNGS: Equal air entry with minimal crackles at bilateral lower lobes, and diminished breath sounds, particularly on the left lower lobe CVS: Regular rate and rhythm, normal S1 and S2, no gallops, no murmurs, no rubs ABDOMEN: Soft, nontender. No hepatosplenomegaly, normal bowel sounds, no guarding or rigidity. EXTREMITIES: No clubbing, left lower extremity edema, with a slight warmth in the left ankle joint, left ankle joint incision clean dry and intact, [place] drain has been removed small amount of sanguinous drainage on the dressing., no cyanosis, 2+ pulses and upper and lower extremities. MUSCULOSKELETAL: Muscle strength and tone normal. SPINE: No scoliosis or deformity SKIN: No rashes CENTRAL NERVOUS SYSTEM: Intubated, sedated. No focal deficits, tone is normal in all 4 extremities. - Labs CBC & Chem 7: 11/20/18 05:16 11/20/18 05:16 Labs: Abnormal Lab Results - Last 24 Hours (Table) 11/20/18 11/20/18 11/21/18 Range/Units 16:32 20:28 06:40 POC Glucose (mg/dL) 167 H 251 H 216 H (75-99) mg/dL Microbiology - Last 24 Hours (Table) 11/16/18 08:45 Blood Culture - Preliminary Blood No Growth after 120 hours 11/16/18 08:40 Blood Culture - Preliminary Blood No Growth after 120 hours 11/15/18 16:54 Blood Culture - Preliminary Blood No Growth after 120 hours Assessment and Plan Plan: 1 acute hypoxic respiratory failure probably related to metabolic acidosis an underlying sepsis. The patient is currently extubated on 2 L of oxygen by nasal cannula 2 left ankle septic arthritis, post incision and drainage, aspirate cultures positive for Staphylococcus aureus, this is MSSA and the patient is currently on IV cefazolin 3 metabolic acidosis/lactic acidosis, recovered 4 hypotension, improved, recovered 5 diabetes mellitus with elevated blood sugar 6 hyperlipidemia 7 hypertension 8 acute kidney injury, recovered 9 acute hyperkalemia likely secondary to acute kidney injury and metabolic acidosis., Recovered 10 mild fluid overload, with the chest x-ray showing small bilateral pleural effusions and pulmonary vascular congestion, recovered Plan Continue IV cefazolin. Incentive spirometer. DuoNeb the right seems [id number]. Daily Lasix 40 mg IV push every 24 hours. Lantus insulin 20 units daily along with his vascular coverage. No issues for now. We'll transfer this patient to medical floor. Arrangements with him for a PICC line for tomorrow for long-term antibiotic treatment.
[2018-11-21 11:59] LABS: Glucose,Whole Blood 286 mg/dL (75-99)
[2018-11-21 17:10] LABS: Glucose,Whole Blood 200 mg/dL (75-99)
[2018-11-21] MEDS: SODIUM CHLORIDE 0.9% 1,000 ML IV SCH (19:44)
[2018-11-21 20:37] LABS: Glucose,Whole Blood 224 mg/dL (75-99)
--- NOTE | 2018-11-21 22:24 | P.PN ---
Progress Note - Text Progress Note Date: 11/21/18 nterval history: This is a pleasant 68-year-old patient of Dr. Maddox. Chronic stable medical co nditions include diabetes, hypertension, hyperlipidemia,. Patient complains of pain in his left ankle for quite some time. Seems to progressively gotten worse. This pain and swelling. Denies any fever and chills. Denies any injury. Patient the best of historians. Admitted for the same. No fever no chills. Pain is localized to the left ankle and worse with activity. Finds it difficult to weight-bear. Better with rest. On November 15, arthrocentesis was done of the left ankle. Pus was obtained. Later patient was taken down to the OR for further drainage. Because of metabolic acidosis and sepsis patient went into respiratory distress and was intubated. Extubated on November 19 Today-. no new issues. Getting IV antibiotics. Tolerating a diet. Comfortable. Review of systems: Was done for constitutional, cardiovascular, GI, pulmonary. relevant finding as above Active Medications Acetaminophen (Tylenol Tab) 650 mg PO Q6HR PRN PRN Reason: Fever and/ or Pain Last Admin: 11/20/18 22:52 Dose: 650 mg Documented by: Albuterol/Ipratropium (Duoneb 0.5 Mg-3 Mg/3 Ml Soln) 3 ml INHALATION RT-Q2H PRN PRN Reason: Shortness Of Breath Or Wheezing Albuterol/Ipratropium (Duoneb 0.5 Mg-3 Mg/3 Ml Soln) 3 ml INHALATION RT-QID [facility] Last Admin: 11/21/18 18:58 Dose: 3 ml Documented by: Aspirin (Aspirin) 81 mg PO DAILY [facility] Last Admin: 11/21/18 08:14 Dose: 81 mg Documented by: Clopidogrel Bisulfate (Plavix) 75 mg PO DAILY [facility] Last Admin: 11/21/18 08:14 Dose: 75 mg Documented by: Enoxaparin Sodium (Lovenox) 40 mg SQ Q24H [facility] Last Admin: 11/20/18 21:44 Dose: 40 mg Documented by: Furosemide (Lasix) 40 mg IV DAILY [facility] Last Admin: 11/21/18 08:14 Dose: 40 mg Documented by: Sodium Chloride (Saline 0.9%) 1,000 mls @ 10 mls/hr IV .Q24H [facility] Last Admin: 11/21/18 19:44 Dose: Not Given Documented by: Cefazolin Sodium 2 gm/ Sodium (Chloride) 50 mls @ 100 mls/hr IVPB Q8HR [facility] Last Admin: 11/21/18 18:05 Dose: 100 mls/hr Documented by: Insulin Aspart (Novolog) 0 unit SQ ACHS [facility]; Protocol Last Admin: 11/21/18 20:31 Dose: 3 unit Documented by: Insulin Detemir (Levemir) 20 unit SQ DAILY@0700 [facility] Last Admin: 11/21/18 07:02 Dose: 20 unit Documented by: Miscellaneous Information (Potassium Per Protocol) 1 each MISCELLANE DAILY PRN; Protocol PRN Reason: Per Protocol Naloxone HCl (Narcan) 0.2 mg IV Q2M PRN PRN Reason: Opioid Reversal Ondansetron HCl (Zofran) 4 mg IVP Q8HR PRN PRN Reason: Nausea And Vomiting Physical examination: VITAL SIGNS: 98.3, 92, 12, 11 5 x 71 GENERAL: laying in bed, comfortabley EYES: Pupils equal. Conjunctiva normal. HEENT: External appearance of nose and ears normal, nasal cannula in place NECK: JVD unable to assess; masses not palpable. HEART: First and second heart sounds are normal; no edema. LUNGS: Respiratory rate increased, diminished breath sounds. ABDOMEN: Soft, nontender, liver spleen not palpable, no masses palpable. PSYCH: Awake, able answer simple questions MUSCULOSKELETAL: Dressing over the left ankle INVESTIGATIONS, reviewed in the clinical context: Wound culture fluids growing MSSA Previous testing: . White count 14.5 hemoglobin 13.7 potassium 4.7 1:15 creatinine 1.03 Left foot and ankle x-ray-shows soft tissue swelling around the foot and the ankle Joint fluid: RBC 5400, polynuclear WBC 89, nucleated cells 93,000 Assessment: -Left ankle septic arthritis. Arthrocentesis did reveal pus. Status post I&D with a Ave drain line-cultures growing MSSA -Acute hypoxic respiratory failure with ventilator support secondary to sepsis, -Sepsis from septic arthritis, improved -Metabolic and lactic acidosis. -Diabetes mellitus type 2 -Obesity BMI 36.6 -Essential hypertension -Hyperlipidemia Plan: PICC line ordered for tomorrow. Discharge antibiotics per ID. await input from project planner for place of discharge.
[2018-11-22] MEDS: ENOXAPARIN 40 MG/0.4 ML SYRINGE SQ SCH (00:29)
--- NOTE | 2018-11-22 01:39 | PN ---
PROGRESS NOTE DATE OF SERVICE: 11/21/2018 REASON FOR FOLLOWUP: Left ankle abscess MSSA. INTERVAL HISTORY: The patient is currently afebrile. Patient has been breathing comfortably. Denies having any chest pain or any cough. No abdominal pain or any worsening pain to the right foot area. PHYSICAL EXAMINATION: Blood pressure is 115/71 with a pulse of 90, temperature 98.3. General description is an elderly female lying in bed in no distress. Respiratory system: Unlabored breathing. Clear to auscultation anteriorly. Heart S1, S2. Regular rate and rhythm. Abdomen soft, no tenderness. Left ankle is currently dressed up, no obvious drainage on the dressing. LABS: No new labs have been obtained today. DIAGNOSTIC IMPRESSION AND PLAN: Patient with left ankle MSSA abscess status post drainage. The patient is currently on cefazolin 2 g q.8 hours. She will continue with plan for outpatient IV antibiotic therapy on discharge. Continue supportive care. MMODL / IJN: [id number] /
[2018-11-22 05:53] VITALS: RESP 20
[2018-11-22 05:56] VITALS: BP 155/66; TEMP 98.4
[2018-11-22 06:51] LABS: Glucose,Whole Blood 218 mg/dL (75-99)
[2018-11-22] MEDS: INSULIN DETEMIR (LEVEMIR) 100 UNIT/ML SYR SQ SCH (07:48)
[2018-11-22] MEDS: INSULIN ASPART (NovoLOG) 100 UNIT/ML VIAL SQ SCH ×2 (07:48→12:15)
[2018-11-22] MEDS: ASPIRIN 81 MG PO SCH (07:49)
[2018-11-22] MEDS: FUROSEMIDE 10 MG/ML 4 ML VIAL IV SCH (07:49)
[2018-11-22] MEDS: CLOPIDOGREL 75 MG TAB PO SCH (07:49)
[2018-11-22] MEDS: IPRATROPIUM-ALBUTEROL 3 ML NEB INHALATION SCH ×2 (08:56→11:38)
[2018-11-22 09:05] VITALS: PULSE 89
[2018-11-22 12:01] LABS: Glucose,Whole Blood 233 mg/dL (75-99)
--- NOTE | 2018-11-22 12:44 | P.DS ---
Providers Date of admission: 11/16/18 02:15 Expected date of discharge: 11/22/18 Attending physician: Oscar Medina Consults: 11/14/18 23:04 Consult Physician Routine Consulting Provider: Mark Arnold Consult Reason/Comments: left ankle pain Do you want consulting provider notified?: Yes 11/15/18 16:16 Consult Physician Routine Consulting Provider: Bibiana Ballard Consult Reason/Comments: patient known to you, ankle wound Do you want consulting provider notified?: Yes 11/16/18 02:31 Consult Physician Stat Consulting Provider: Eren Lang Consult Reason/Comments: a-team, icu management, resp distress Do you want consulting provider notified?: Already Contacted [facility] Course: nterval history: This is a pleasant 68-year-old patient of Dr. Wilkes. Chronic stable medical conditions include diabetes, hypertension, hyperlipidemia,. Patient complains of pain in his left ankle for quite some time. Seems to progressively gotten worse. Has pain and swelling. Denies any fever and chills. Denies any injury. Not the best of historians. Admitted for the same. No fever no chills. Pain is localized to the left ankle and worse with activity. Finds it difficult to weight-bear. Better with rest. On November 15, arthrocentesis was done of the left ankle. Pus was obtained. Later patient was taken down to the OR for further drainage. Because of metabolic acidosis and sepsis patient went into respiratory distress and was intubated. Extubated on November 19. Treated for septic arthritis. Ankle cultures were positive for MSSA. Patient doing really well. Starting a diet. Pain is well controlled. Spoke to the patient detailed today. Questions were answered. Spoke to the vp digital marketing social media and crm. Discussion and discharge planning more than 35 minutes Consultation: Dr. ballard from ID Dr. Arnold from orthopedics Physical examination: VITAL SIGNS: 98.4, 88, 20, 155/66 GENERAL: Sitting up in a chair, comfortable EYES: Pupils equal. Conjunctiva normal. HEENT: External appearance of nose and ears normal, nasal cannula in place NECK: JVD unable to assess; masses not palpable. HEART: First and second heart sounds are normal; no edema. LUNGS: Respiratory rate increased, diminished breath sounds. ABDOMEN: Soft, nontender, liver spleen not palpable, no masses palpable. PSYCH: Answering questions appropriately MUSCULOSKELETAL: Dressing over the left ankle INVESTIGATIONS, reviewed in the clinical context: Wound culture fluids growing MSSA Previous testing: . White count 14.5 hemoglobin 13.7 potassium 4.7 1:15 creatinine 1.03 Left foot and ankle x-ray-shows soft tissue swelling around the foot and the ankle Joint fluid: RBC 5400, polynuclear WBC 89, nucleated cells 93,000 Discharge diagnoses: -Left ankle septic arthritis. Arthrocentesis did reveal pus. Status post I&D with a Ave drain line-cultures growing MSSA -Acute hypoxic respiratory failure with ventilator support secondary to sepsis, -Sepsis from septic arthritis, improved -Metabolic and lactic acidosis. -Diabetes mellitus type 2 -Obesity BMI 36.6 -Essential hypertension -Hyperlipidemia Disposition: [facility] Patient Condition at Discharge: Stable Plan - Discharge Summary Discharge Rx Participant: No New Discharge Prescriptions: New ceFAZolin [Kefzol] 2 gm IVP Q8HR #42 vial No Action metFORMIN HCL [Glucophage] 500 mg PO BID Metoprolol Succinate (ER) [Toprol Xl] 50 mg PO DAILY Lisinopril [Zestril] 10 mg PO DAILY Insulin Glargine [Lantus] 14 unit SQ BID Clopidogrel Bisulfate [Plavix] 75 mg PO DAILY Atorvastatin [Lipitor] 40 mg PO DAILY Aspirin EC [Ecotrin Low Dose] 81 mg PO DAILY Discharge Medication List Aspirin EC [Ecotrin Low Dose] 81 mg PO DAILY 11/14/18 [History] Atorvastatin [Lipitor] 40 mg PO DAILY 11/14/18 [History] Clopidogrel Bisulfate [Plavix] 75 mg PO DAILY 11/14/18 [History] Insulin Glargine [Lantus] 14 unit SQ BID 11/14/18 [History] Lisinopril [Zestril] 10 mg PO DAILY 11/14/18 [History] Metoprolol Succinate (ER) [Toprol Xl] 50 mg PO DAILY 11/14/18 [History] metFORMIN HCL [Glucophage] 500 mg PO BID 11/14/18 [History] ceFAZolin [Kefzol] 2 gm IVP Q8HR #42 vial 11/22/18 [Rx] Follow up Appointment(s)/Referral(s): Alan Wilkes MD [Primary Care Provider] - 1-2 days Bibiana Ballard MD [STAFF PHYSICIAN] - 1 Week
--- NOTE | 2018-11-22 13:07 | PN ---
PROGRESS NOTE DATE OF SERVICE: 11/22/2018 REASON FOR VISIT FOLLOWUP: Left ankle MSSA abscess and cellulitis. INTERVAL HISTORY: The patient is currently afebrile. Patient has been breathing comfortably. Patient denies having any chest pain or any cough. No abdominal pain. No pain to the left ankle area. PHYSICAL EXAMINATION: Blood pressure 155/56, pulse of 88, temperature 98.4, she is 94% on 3 L nasal cannula. General description is an elderly female, up in the bed in no distress. RESPIRATORY SYSTEM: Unlabored breathing, clear to auscultation anteriorly. HEART: S1, S2. Regular rate and rhythm. ABDOMEN: Soft, no tenderness. Left ankle stitches are currently intact, some swelling but no redness or any drainage. LABS: Blood culture repeat has been negative. DIAGNOSTIC IMPRESSION AND PLAN: Patient with left ankle cellulitis. Patient with a PICC line for continuation of IV cefazolin 2 g q.8 hours for 2 weeks at the senior living and close outpatient followup. MMODL / IJN: [id number] /
--- NOTE | 2018-11-22 13:16 | P.PN ---
Subjective Progress Note Date: 11/22/18 Principal diagnosis: Acute hypoxic respiratory failure related to sepsis. On 11/16/2018 I'm seeing this patient for a follow-up. The patient was ordered to seen earlier this morning by my partner. In any rate, the patient is currently intubated on a mechanical ventilator. She is an assist-control mode at a rate of 26 with a tidal volume of 400 and FiO2 of 50% with a PEEP of 5. She was having significant amount of air leak and this was in the order of 150 mL and this was adjusted at the bedside. Chest x-ray was reviewed and shows lower lobe active pulmonary infiltrates. Not get was reviewed. The patient is currently afebrile. The left ankle wound was checked. There is a drain within the joint which is not putting much of output. She is on a combination of cefe pime and vancomycin. The patient is on propofol at 50 mics. No pressors for now. She is going to complete the third liter of bolus. She is producing urine output. Blood work will be reviewed and the repeated. She is having elevated blood sugar. Insulin drip will be started all of the events that occurred yesterday were noted On 11/17/2018 patient seen in follow-up in the intensive care unit, she she remains intubated, on mechanical ventilator, current vent settings are assist- control mode of ventilation with a rate of 26, tidal vital 400, FiO2 of 40% and PEEP of 5. This morning's blood gas has been reviewed, showing pO2 of 112, pCO2 of 33, pH of 7.39, this was done on FiO2 of 50%.'s morning's chest x-ray has been reviewed, showing slightly worsening fluid overload with increasing small right pleural effusion and stable left pleural effusion and patient was given a dose of IV Lasix. Her dynamically remains stable, not requiring any vasopressor support at this time, IV fluids have been decreased down to keep open, Diprivan and is currently at 40 mics per kilo per minute. Plan infusion is at 4 units per hour. Antibiotic coverage in the form of cefepime and vancomycin, micr obiology showing Staphylococcus aureus in the left ankle aspirate, blood cultures were negative. Sputum culture showed no growth. His labs have been reviewed, showing white blood cell count of 9.7, hemoglobin of 9.5, serum sodium of 140, potassium is 4.4, chloride is 113, CO2 is 20, BUN of 20, creatinine 0.95. Orthopedic surgeries following, and the day remove the Ave drain from the left ankle to is draining minimal amount of sanguinous drainage. Afebrile, tachycardic, with a heart rate between 95-103 BPM. On 11/18/2018, patient is being seen in follow-up in intensive care unit. Mag ins intubated on a mechanical ventilator. Chest x-ray showing some cardiomegaly and pulmonary vascular congestion. She'll stop propofol designing a 50 mics and she was started enterofeeding. She'll support. No fever. No chills. Hemodynamic is stable. Given a dose of Lasix yesterday with excellent urine output and fluid balance of -2.8 L since the patient was given diuretics. The patient is calm and comfortable Emily patient is hemodynamically stable. The cultures on the left ankle grew MSSA and the patient is currently on IV Kefzol. The patient tolerating her tube feeds. Brother significant events overnight. No significant leukocytosis. The called up on 6.5. Blood gas from today showed a pH of 7.44 with a pCO2 of 37 and pO2 of 78 and this was on the frontal 50% with a tidal volume of 426 and a PEEP of 5. The patient is in a sinus rhythm. No other significant events otherwise over the past 24 hours. ID is on the case. Antibiotics has been switched from cefepime and vancomycin and was simplified to IV Kefzol. On 11/19/2018 patient seen in follow-up in the intensive care unit, she was successfully extubated yesterday at 5:00 in the evening and this morning she is doing well on 5 L of oxygen with a pulse ox of 96%, denies any respiratory difficulty, hemodynamically stable, she is afebrile, she is responding properly, although she states she feels a little foggy. No complaints of chest pain, no complaints of worsening dyspnea, no acute events overnight, today's chest x-ray has been review still showing mild pulmonary vessel congestion, minimally improved from prior exam, and small to moderate left and small right pleural effusions. We'll continue IV diuresis. Continue Lasix of 40 mg daily, she has produced 5100 of urine in the last 24 hours, she is in -3800 fluid balance. Lung sounds reveal diminished breath sounds with some crackles at bilateral bases, no significant rhonchi or rales, she is sinus tach on the monitor with a rate of 112, hemodynamically stable, IV 0.9 normal saline at a rate of 20, and insulin drip is infusing at 2-1/2 units per hour, patient has been started on clear liquid diet, tolerating oral diet very well, no significant lower extremity edema, wound culture from the left ankle aspirate revealed MSSA, and cefepime and vancomycin have been discontinued patient has been switched to cefazolin. No fever or chills On 11/22/2018 patient seen in follow-up on medical surgical floor. She is awake and alert, oriented 3, although she states at times she feels a little slow. Responding appropriately. Denies any shortness of breath, denies any chest pain, she is on 3 L of oxygen pulse ox of 94%, afebrile, she is on IV cefazolin for left ankle MSSA. Left IJ triple-lumen is still in place, patient is awaiting placement of a midline catheter, and she will possibly be discharged to subacute rehab with IV cefazolin infusions. No acute events overnight, patient is complaining of generalized weakness, she has started working with therapy. Objective - Vital Signs Vital signs: Vital Signs Temp 98.4 F 11/22/18 04:50 Pulse 89 11/22/18 09:05 Resp 20 11/22/18 04:50 BP 155/66 11/22/18 04:50 Pulse Ox 94 L 11/22/18 04:50 Intake & Output 11/21/18 11/22/18 11/22/18 18:59 06:59 18:59 Intake Total 238 300 Output Total 498 135 6471 Balance -497 -500 -1000 Intake: Oral 238 300 Output: Urine 031 448 3729 Uretheral ([place]) 1000 Other: Voiding Method Indwelling Catheter Indwelling Catheter Indwelling Catheter ABP, PAP, CO, CI - Last Documented Arterial Blood Pressure 146/89 - Exam GENERAL EXAM: Obese, 68-year-old white female, currently on 3 L of oxygen, with a pulse ox of 94%, comfortable in no apparent distress. HEAD: Normocephalic/atraumatic. EYES: Normal reaction of pupils, equal size. Conjunctiva pink, sclera white. NOSE: Clear with pink turbinates. THROAT: No erythema or exudates. NECK: No masses, no JVD, no thyroid enlargement, no adenopathy. CHEST: No chest wall deformity. Symmetrical expansion. LUNGS: Equal air entry with diminished breath sounds at bilateral bases, particularly on the left lower lobe CVS: Regular rate and rhythm, normal S1 and S2, no gallops, no murmurs, no rubs ABDOMEN: Soft, nontender. No hepatosplenomegaly, normal bowel sounds, no guarding or rigidity. EXTREMITIES: No clubbing, left lower extremity edema, with a slight warmth in the left ankle joint, left ankle joint incision clean dry and intact, Ave drain has been removed small amount of sanguinous drainage on the dressing., no cyanosis, 2+ pulses and upper and lower extremities. MUSCULOSKELETAL: Muscle strength and tone normal. SPINE: No scoliosis or deformity SKIN: No rashes CENTRAL NERVOUS SYSTEM: Intubated, sedated. No focal deficits, tone is normal in all 4 extremities. - Labs CBC & Chem 7: 11/20/18 05:16 11/20/18 05:16 Labs: Abnormal Lab Results - Last 24 Hours (Table) 11/21/18 11/21/18 11/22/18 Range/Units 16:57 20:26 06:49 POC Glucose (mg/dL) 200 H 224 H 218 H (75-99) mg/dL 11/22/18 Range/Units 11:59 POC Glucose (mg/dL) 233 H (75-99) mg/dL Microbiology - Last 24 Hours (Table) 11/16/18 08:40 Blood Culture - Final Blood No Growth after 144 hours 11/16/18 08:45 Blood Culture - Final Blood No Growth after 144 hours 11/15/18 16:54 Blood Culture - Final Blood No Growth after 144 hours Assessment and Plan Plan: Assessment: 1 acute hypoxic respiratory failure probably related to metabolic acidosis an underlying sepsis. The patient is currently extubated on 3 L of oxygen by nasal cannula 2 left ankle septic arthritis, post incision and drainage, aspirate cultures positive for Staphylococcus aureus, this is MSSA and the patient is currently on IV cefazolin 3 metabolic acidosis/lactic acidosis, recovered 4 hypotension, improved, recovered 5 diabetes mellitus with elevated blood sugar 6 hyperlipidemia 7 hypertension 8 acute kidney injury, recovered 9 acute hyperkalemia likely secondary to acute kidney injury and metabolic acidosis., Recovered 10 mild fluid overload, with the chest x-ray showing small bilateral pleural effusions and pulmonary vascular congestion, recovered Plan: Patient is awaiting placement of a midline catheter for cefazolin infusions, otherwise remains stable, no worsening dyspnea, wean FiO2, encourage deep breathing and coughing, she is complaining of generalized weakness and inability to ambulate, physical therapy has started working with the patient, and patient will likely need subacute rehab after discharge. A pulmonary perspective she remains stable, vital signs are stable. Anticipate discharge to subacute rehab possibly today or tomorrow. We will sign off and follow on as-needed basis. I performed a history & physical examination of the patient and discussed their management with my nurse practitioner, Gwen Finney. I reviewed the nurse practitioner's note and agree with the documented findings and plan of care. Lung sounds are positive for diminished breath sounds. The findings and the impression was discussed with the patient. I attest to the documentation by the nurse practitioner. Time with Patient: Less than 30
== END 2018-11-22 14:05 | DRG 871 ==
LOC: EC 05:45 → 4MS4W 08:50 → OBSVTOIN 11-16 02:15 → 2SICU 11-16 02:34 → 4MS4W 11-21 20:57
PROVIDERS: ADMIT Hospitalist; ATTEND Hospitalist
PROC: 0J9P00Z Drainage of Left Lower Leg Subcutaneous Tissue and Fascia with Drainage Device, Open Approach (ICD-10-PCS; 2018-11-15)
PROC: 0BH17EZ Insertion of Endotracheal Airway into Trachea, Via Natural or Artificial Opening (ICD-10-PCS; principal; 2018-11-16)
PROC: 5A1945Z Respiratory Ventilation, 24-96 Consecutive Hours (ICD-10-PCS; 2018-11-16)
PROC: 03HY32Z Insertion of Monitoring Device into Upper Artery, Percutaneous Approach (ICD-10-PCS; 2018-11-16)
PROC: 4A133B1 Monitoring of Arterial Pressure, Peripheral, Percutaneous Approach (ICD-10-PCS; 2018-11-16)
PROC: 4A133J1 Monitoring of Arterial Pulse, Peripheral, Percutaneous Approach (ICD-10-PCS; 2018-11-16)
PROC: 02HV33Z Insertion of Infusion Device into Superior Vena Cava, Percutaneous Approach (ICD-10-PCS; 2018-11-16)
PROC: 03HY32Z Insertion of Monitoring Device into Upper Artery, Percutaneous Approach (ICD-10-PCS; 2018-11-17)
PROC: 4A133B1 Monitoring of Arterial Pressure, Peripheral, Percutaneous Approach (ICD-10-PCS; 2018-11-17)
PROC: 4A133J1 Monitoring of Arterial Pulse, Peripheral, Percutaneous Approach (ICD-10-PCS; 2018-11-17)
PROC: 05HC33Z Insertion of Infusion Device into Left Basilic Vein, Percutaneous Approach (ICD-10-PCS; 2018-11-22)
DX: A41.01 Sepsis due to Methicillin susceptible Staphylococcus aureus (principal); R65.21 Severe sepsis with septic shock; J96.01 Acute respiratory failure with hypoxia; M00.072 Staphylococcal arthritis, left ankle and foot; N17.9 Acute kidney failure, unspecified; E87.4 Mixed disorder of acid-base balance; J90 Pleural effusion, not elsewhere classified; L02.416 Cutaneous abscess of left lower limb; L03.116 Cellulitis of left lower limb; Z99.11 Dependence on respirator [ventilator] status; E11.40 Type 2 diabetes mellitus with diabetic neuropathy, unspecified; E11.65 Type 2 diabetes mellitus with hyperglycemia; E66.9 Obesity, unspecified; E78.5 Hyperlipidemia, unspecified; E87.5 Hyperkalemia; E87.70 Fluid overload, unspecified; G89.29 Other chronic pain; I10 Essential (primary) hypertension; Z68.36 Body mass index [BMI] 36.0-36.9, adult; Z79.02 Long term (current) use of antithrombotics/antiplatelets; Z79.4 Long term (current) use of insulin; Z79.82 Long term (current) use of aspirin; Z79.899 Other long term (current) drug therapy; Z90.710 Acquired absence of both cervix and uterus
CPT/HCPCS: 36410; 36415; 36600; 71045; 76937; 80048; 80053; 81001; 82533; 82805; 83036; 83605; 83735; 84100; 84132; 84550; 85025; 85347; 85379; 85610; 85730; 87040; 87070; 87075; 87077; 87186; 87205; 89050; 89060; 93005; 93306; 94002; 94003; 94640; 96361; 96374; 99285

== ENCOUNTER 2019-03-31 12:47 | Day surgery (SDC) | payer MEDICARE ==
[2019-03-30 12:21] VITALS: BMI 35.6
[2019-03-31 13:49] VITALS: RESP 18; TEMP 98
[2019-03-31 13:54] LABS: Basophils # (A) 0.2 k/uL (0-0.2); Basophils % (A) 2 %; Eosinophils # (A) 0.9 k/uL (0-0.7); Eosinophils % (A) 9 %; HCT 40.5 % (34.0-46.0); HGB 13.2 gm/dL (11.4-16.0); Lymphocytes % (A) 21 %; MCH 30.5 pg (25.0-35.0); MCHC 32.6 g/dL (31.0-37.0); MCV 93.4 fL (80.0-100.0); Mean Platelet Volume 7.8; Monocytes # (A) 0.5 k/uL (0-1.0); Monocytes % (A) 5 %; Neutrophils # (A) 5.7 k/uL (1.3-7.7); Neutrophils % (A) 61 %; Platelet Count 269 k/uL (150-450); RBC 4.33 m/uL (3.80-5.40); RDW 12.9 % (11.5-15.5); WBC 9.3 k/uL (3.8-10.6)
[2019-03-31 14:09] LABS: Calcium 9.3 mg/dL (8.4-10.2); Potassium 4.7 mmol/L (3.5-5.1)
[2019-03-31 15:10] VITALS: BP 152/74; PULSE 82
--- NOTE | 2019-03-31 15:33 | IR ---
PICC LINE PLACEMENT: HISTORY: Infection requiring long-term antibiotic therapy PROCEDURE: Ultrasound and fluoroscopic guidance of PICC line placement. COMPLICATIONS: None ANESTHESIA: 1. 1% Lidocaine locally. FINDINGS/TECHNIQUE: The procedure was explained to the patient. The risks, complications, benefits and alternatives were discussed and any questions were answered. Informed consent was obtained. The patient was placed supine on the fluoroscopic table and prepped and draped in the usual sterile fash ion. Utilizing a 21 gauge needle and sonographic and fluoroscopic guidance, access in the left basi lic vein was achieved and there is placement of a 0.018 guidewire. The vein is patent. A 4-F sheath was placed over the guidewire. The guidewire and dilator were removed and a 4-F. PICC line was plac ed through the sheath with the tip at the level of the SVC. The sheath was removed, the catheter was flushed and sutured into position. The patient was stable throughout the procedure and remained sta ble upon discharge from the Department of Radiology. The vein puncture was patent under ultrasound. A beck scale image was obtained to document patency of the vein punctured. All elements of the maximal barrier technique were utilized. FLUOROSCOPY TIME: 1 minutes and one image submitted IMPRESSION: Successful PICC line placement under ultrasound and fluoroscopic guidance.
== END 2019-03-31 15:06 | disposition home or self-care (01) ==
LOC: CATHCVL 12:47
PROVIDERS: ATTEND Radiology Diagnostic Radiology
DX: E11.69 Type 2 diabetes mellitus with other specified complication (principal); M86.272 Subacute osteomyelitis, left ankle and foot; E11.621 Type 2 diabetes mellitus with foot ulcer; S91.002D Unspecified open wound, left ankle, subsequent encounter
CPT/HCPCS: 36573; 80048; 85025; C1751; C1769